=== PATIENT | female | born 1940 | race Caucasian/White ===

== ENCOUNTER → 2016-05-18 | Outpatient (CLI) | payer OTHER, BC | LOC: BHFA 14:00 | PROVIDERS: ATTEND Internal Medicine Cardiovascular Disease | DX: I34.9 Nonrheumatic mitral valve disorder, unspecified (principal) ==

== ENCOUNTER → 2016-06-08 | Outpatient (CLI) | payer OTHER, BC | LOC: BHFA 13:45 | PROVIDERS: ATTEND Internal Medicine Cardiovascular Disease | DX: I50.9 Heart failure, unspecified (principal); R00.2 Palpitations; R06.02 Shortness of breath; I48.91 Unspecified atrial fibrillation; I34.0 Nonrheumatic mitral (valve) insufficiency ==

== ENCOUNTER 2016-07-06 10:54 | Day surgery (SDC) | payer OTHER, BC ==
[2016-07-06] MEDS ORDERED: diphenhydrAMINE 25 MG CAP PO ONE (11:25)
[2016-07-06] MEDS ORDERED: BACITRACIN IRRIGATION/NS 50,000 UNITS/1,000 ML BTL IRR ONE (11:25)
[2016-07-06] MEDS ORDERED: DIAZEPAM 5 MG TAB PO ONE (11:25)
[2016-07-06] MEDS ORDERED: NS 1,000 ML IV ONE (11:25)
--- NOTE | 2016-07-06 11:38 | CPEKG ---
Heart Rate: 70 RR Interval: 857 QRSD Interval: 136 QT Interval: 428 QTC Interval: 462 QRS [place]: 156 T Wave [place]: -21 EKG Severity - ABNORMAL ECG - EKG Impression: AFIB/FLUT AND V-PACED COMPLEXES Electronically Signed By: Dre Valle 07-Jul-2016 06:48:32
[2016-07-06] MEDS ORDERED: VANCOMYCIN HCL/NORMAL SALINE 250 ML IV ONE (12:00)
[2016-07-06 12:04] LABS: % IMMATURE GRANULYOCYTES 0.4 % (0.0-1.1); ABSOLUTE IMMATURE GRANULOCYTES 0.02 10^3/uL (0.00-0.10); ADD DIFF? NO; ADD MORPH? NO; ADD SCAN? NO; ATYPICAL LYMPHOCYTE FLAG 0 (0-99); FRAGMENT RBC FLAG 0 (0-99); HEMATOCRIT 39.6 % (38.0-47.0); HEMOGLOBIN 12.4 g/dL (12.6-16.3); LEFT SHIFT FLG 0 (0-99); LIPEMIA HEMOLYSIS FLAG 80 (0-99); MEAN CELL HEMOGLOBIN 28.4 pg (27.9-34.1); MEAN CELL HEMOGLOBIN CONCENTR. 31.3 g/dL (32.4-36.7); MEAN CELL VOLUME 90.8 fL (81.5-99.8); MEAN PLATELET VOLUME 9.6 fL (8.7-11.7); PLATELET CLUMPS FLAG 10 (0-99); PLATELET COUNT 153 10^3/uL (150-400); RED BLOOD CELL COUNT 4.36 10^6/uL (4.18-5.33); RED CELL DISTRIBUTION WIDTH 13.9 % (11.5-15.2)
[2016-07-06 12:09] LABS: INR 2.15 (0.83-1.16); PROTIME(PATIENT) 24.2 SEC (12.0-15.0)
[2016-07-06 12:30] LABS: ANION GAP 9 mEq/L (8-16); CALCIUM 9.5 mg/dL (8.5-10.4); CARBON DIOXIDE 22 mEq/l (22-31); CHLORIDE 111 mEq/L (97-110); GLOMERULAR FILTRATION RATE 54; GLUCOSE 76 mg/dL (70-100); POTASSIUM 3.7 mEq/L (3.5-5.2); SODIUM 142 mEq/L (134-144)
[2016-07-06] MEDS ORDERED: BUPIVACAINE 0.5% 30 ML SDV ONE (13:17)
[2016-07-06] MEDS ORDERED: LIDOCAINE 1% 30 ML SDV ONE (13:17)
[2016-07-06] MEDS ORDERED: PROPOFOL 200 MG/20 ML VIAL ONE (13:28)
[2016-07-06] MEDS ORDERED: fentaNYL 100 MCG/2 ML INJ ONE ×2 (13:28→14:55)
[2016-07-06] MEDS ORDERED: ONDANSETRON 4 MG/2 ML VIAL ONE (13:28)
[2016-07-06] MEDS ORDERED: LIDOCAINE 2% JELLY 5 ML TUBE ONE (13:28)
[2016-07-06] MEDS ORDERED: DEXAMETHASONE 4 MG/ML VIAL ONE (13:28)
[2016-07-06] MEDS ORDERED: PHENYLEPHRINE HCL 100 MCG/ML SYR ONE (14:07)
[2016-07-06] MEDS ORDERED: HYDROCODONE/APAP 5/325 TAB PO PRN (14:53)
--- NOTE | 2016-07-06 15:03 | EPPROC ---
Electrophysiology Procedure Note: PROCEDURE PERFORMED: 1. AbiV ICD downgrade to AbiV pacemaker OPERATORS Dr. Pradeep Barclay, nurse's assistant Dr. Efe Ware INDICATION: Previously placed biventricular ICD Left ventricular ejection fraction has now normalized Conversation with the patient regarding pros and cons of biventricular pacemaker versus ICD, she understands risks of not having ICD and opts to have biventricular pacemaker. Device placed in retro muscular location because of thin body habitus he PROCEDURE NOTE: Patient presented to the cardiac catheterization laboratory in a fasting, postabsorptive state. Dr. Harshil Frost administered general anesthesia. The left infraclavicular area was prepped and draped in the usual sterile fashion. Lidocaine plus bupivacaine was used for local anesthesia. Dr. Pradeep Barclay performed the surgical aspects of the procedure and has dictated separately. The ICD portion of the right ventricular lead was capped, pocket was made in the retro muscular plane, pacemaker generator was attached to the leads. The pacemaker was inserted into the pocket and secured in place with a nonabsorbable suture. The pacemaker pocket was closed in 3 layers with absorbable monocryl sutures and álvaro. Appropriate dressing was applied. The patient left the cardiac catheterization laboratory in stable condition. Serial Numbers: 1. Device [employer] RF 3222 DIRECTOR ORANGE P, serial [id number] 2. Atrial Lead [employer] 4470, serial number [id number] 3. Ventricular Lead [employer] 0157, serial number [id number] 4. Coronary sinus Lead [employer] 4543, serial number [id number] Stimulation Thresholds & Impedance Measurements: 1. Atrial Lead atrial fibrillation, impedance 370 Ohms, sensing 0.8 mV 2. Ventricular Lead sensing 8.4 mV, threshold 1.5 volts at 0.5 milliseconds , 370 Ohms impedance 3. Coronary sinus Lead sensing 5.5 mV, threshold 1.2 volts at 0.5 milliseconds , impedance 820 Ohms. Tristan Pacing Parameters 1. Pacing mode DDDR with mode switch, patient has permanent atrial fibrillation 2. Lower rate 60 beats per minute 3. Upper tracking rate 120 beats per minute 4. Upper sensor rate 120 beats per minute Patient Problems: Problems Problem Status Onset Valvular cardiomyopathy Acute CAD (coronary artery disease), kake coronary artery Acute Immunosuppression Chronic Chronic atrial fibrillation Chronic Chronic anticoagulation Chronic CKD (chronic kidney disease) Chronic S/P mitral valve repair Acute S/P tricuspid valve repair Acute Acute blood loss anemia Acute Thrombocytopenia Acute
--- NOTE | 2016-07-06 15:16 | CPEKG ---
Heart Rate: 75 RR Interval: 800 QRSD Interval: 130 QT Interval: 464 QTC Interval: 519 QRS [place]: 0 T Wave [place]: 5 EKG Severity - ABNORMAL ECG - EKG Impression: AFIB/FLUTTER AND VENTRICULAR-PACED RHYTHM Electronically Signed By: Dre Valle 07-Jul-2016 06:48:26
--- NOTE | 2016-07-06 16:03 | GOP ---
[f rep st] OPERATIVE REPORT DATE OF OPERATION: 07/06/2016 SURGEON: Pradeep Barclay DO PREOPERATIVE DIAGNOSIS: Generator battery failure. POSTOPERATIVE DIAGNOSIS: PROCEDURE PERFORMED: 1. Revision of generator pocket with transfer of generator to sub pectoralis location. 2. Testing and implanting of pacemaker by Dr. Ware. FINDINGS: DESCRIPTION OF PROCEDURE: Under general anesthetic, the left chest was prepped and draped in steril e classical manner. This patient was extremely thin with no subcutaneous fat and rather cachectic. She had a BiV defibrillator, which had not eroded, but the generator was nearing the end of its lif e. Since she had never been defibrillated by the device, and her ejection fraction had markedly imp roved since cardiac surgery, the plan was to downgrade her to a biventricular pacer without defibril lator. She was prepped for the same. An incision was placed over the previous incision. Bovie was performed down to the capsule. The capsule was freed up and manually debrided. We then removed th e pacemaker from the pocket, and freed up the leads to its entry site in the subclavian vein. This was all done with cautery at a low level to protect the leads. We then excised the heavily calcifie d capsule on the anterior surface, leaving the posterior surface capsule mainly intact. We then dev eloped a pocket by going through the pectoralis muscle, staying along its fibers, entering the prepe ctoral fascia, along the chest wall and created a pocket of adequate size. This was packed with ant ibiotic-soaked solution while Dr. Ware then tested the current leads, capped the defibrillator leads, and connected a new pacemaker. I then it placed beneath the muscle, closed the muscle with interru pted 2-0 Vicryl. I closed the capsule with interrupted 3-0 Vicryl sutures in order to eliminate as much pocket as I could, and then used interrupted Vicryl sutures on the remainder of the closure. N o bleeding was encountered. Pamela were placed on the skin. Dressings were applied. The patient was returned to the recovery room in stable condition. /[id number]/MODL
== END 2016-07-06 18:28 | disposition home or self-care (01) ==
LOC: UNDOADMOB 10:54 → F3E 10:54 → FCATH 10:54 → EDSTATUS 13:00 → FCATH 18:28
PROVIDERS: ATTEND Internal Medicine Cardiovascular Disease
PROC: 0JWT3PZ Revision of Cardiac Rhythm Related Device in Trunk Subcutaneous Tissue and Fascia, Percutaneous Approach (ICD-10-PCS; principal; 2016-07-06)
PROC: 0JH636Z Insertion of Pacemaker, Dual Chamber into Chest Subcutaneous Tissue and Fascia, Percutaneous Approach (ICD-10-PCS; principal; 2016-07-06)
PROC: 0JPT3PZ Removal of Cardiac Rhythm Related Device from Trunk Subcutaneous Tissue and Fascia, Percutaneous Approach (ICD-10-PCS; principal; 2016-07-06)
DX: Z45.02 Encounter for adjustment and management of automatic implantable cardiac defibrillator (principal); I48.2 Chronic atrial fibrillation; N18.6 End stage renal disease; I42.9 Cardiomyopathy, unspecified; Z95.2 Presence of prosthetic heart valve; Z95.810 Presence of automatic (implantable) cardiac defibrillator
CPT/HCPCS: C2621; J1100; J2370; J2405; J2704; J3010; J3370

== ENCOUNTER 2017-05-31 15:30 | Emergency (ER) | payer OTHER, BC ==
--- NOTE | 2017-05-31 15:39 | EDPHY ---
H & P Time Seen by Provider: 05/31/17 15:37 HPI/ROS: CHIEF COMPLAINT: Cough shortness of breath and congestion HISTORY OF PRESENT ILLNESS: Patient developed symptoms 4 days ago with watery eyes and runny nose and feeling congested. She then developed a cough associated with phlegm production and feels very tired. She has not slept the last couple of days because she feels so short of breath at night. Symptoms moderate not associated with chest pain or fever. Not better worse with exertion or position. REVIEW OF SYSTEMS: Eye: no change in vision ENT: no sore throat Cardiac: no chest pain or syncope Pulmonary: HPI Abdomen: no vomiting, diarrhea, abdominal pain Musculoskeletal: no back pain Skin: Multiple areas of bruising from warfarin, right leg wound for the last 4 weeks which is stable Neuro: no headache Constitutional: no fever : no urinary symptoms A comprehensive 10 point review of systems is otherwise negative aside from elements mentioned in the history of present illness. PAST MEDICAL HISTORY: Discharge summary dated 04/28/2015 personally reviewed includes mitral and tricuspid valve repair, attempted single-vessel coronary artery bypass grafting but aborted, thrombocytopenia, renal insufficiency, history of kidney transplant in 2010. Pacemaker. Social history: Nonsmoker General Appearance: Alert and conversant, cooperative. Eyes: No scleral icterus. ENT, Mouth: Normal mucous membranes. Respiratory: Speaks in full sentences, bilateral faint end-expiratory wheezes. Cardiovascular: Regular rate and rhythm. 3/6 systolic murmur. Gastrointestinal: Abdomen is soft and non tender. Neurological: Alert, face symmetric, normal motor and sensory in extremities. Skin: Scattered bruising from her warfarin. There is a dressing over her right leg wound which was not removed. Musculoskeletal: No peripheral edema. No calf tenderness. Psychiatric: Not agitated. Emergency Department course/MDM: Most likely viral URI, however plan to evaluate for CHF or ACS or influenza or pneumonia. Given her past medical history all would be candidates for specific therapy. 1644: INR 2.47, pulmonary embolism would be unlikely. Chest x-ray does not show pneumonia. Normal white blood cell count and afebrile. 1702: Discussed with Shannan regarding elevated BNP; agrees with discharge if clinically does not appear like severe CHF, will arrange prompt followup with Dr. Moreno in office. Previous echo shows chronically dilated left atrium. 1717: Results discussed, likely viral URI, patient would like to go home which I think is reasonable. 1725: ambulatory, full sentences, looks well. Smoking Status: Never smoked Constitutional: Initial Vital Signs Temperature (C) 36.5 C 05/31/17 15:30 Heart Rate 73 05/31/17 15:30 Respiratory Rate 16 05/31/17 15:30 Blood Pressure 114/72 05/31/17 15:30 O2 Sat (%) 92 05/31/17 15:30 O2 Delivery Mode Room Air Allergies/Adverse Reactions: Tetanus Vaccines and Toxoid [Tetanus Vaccines & Toxoid] Allergy (Intermediate, Verified 10/31/13 13:10) bad localized reaction at injection site Cephalosporins Allergy (Verified 04/19/15 19:46) clindamycin Allergy (Verified 10/31/13 12:51) sevelamer HCl [From Renagel] Allergy (Verified 10/31/13 12:51) Home Medications: Medication Instructions Recorded Cinacalcet HCl [Sensipar (*)] 60 mg PO HS 04/23/12 Mycophenolate Mofetil [Cellcept 1,000 mg PO BID 04/23/12 500 mg] Warfarin Sodium [Coumadin 2.5MG 2.5 mg PO SUTUTHSA@1600 04/23/12 (*)] Warfarin Sodium [Coumadin 5MG (*)] 5 mg PO MOWEFR@1600 04/23/12 cycloSPORINE, MODIFIED [Gengraf] 25 mg PO DAILY 04/19/15 cycloSPORINE, MODIFIED [Gengraf] 25 mg PO HS 04/19/15 Pravastatin Sodium 20 mg PO HS #30 tablet 04/28/15 predniSONE 5 mg PO DAILY #30 tab 04/28/15 Calcium Carbonate [Oyster Shell 500 mg PO DAILY 07/06/16 Calcium 500 mg (*)] Carvedilol [Coreg (*)] 12.5 mg PO BIDMEAL 07/06/16 Medical Decision Making - Diagnostics EKG Interpretation: 12-lead EKG interpreted by me; official reading is in trace master. My interpretation is ventricular pacing rate 78. Imaging Results: Imaging Impressions Chest X-Ray 05/31/17 15:48 Impression: Underlying emphysema, without acute cardiopulmonary abnormality.. Differential Diagnosis: Differential diagnosis considered for shortness of breath including but not limited to URI, influenza, pulmonary infectious process, COPD, asthma, pulmonary embolus and congestive heart failure. - Data Points Laboratory Results: Laboratory Results 05/31/17 16:00 05/31/17 16:00 05/31/17 05/31/17 05/31/17 16:15 16:00 16:00 WBC RBC Hgb Hct MCV MCH MCHC RDW Plt Count MPV Neut % (Auto) Lymph % (Auto) [place] % (Auto) Eos % (Auto) Baso % (Auto) Nucleat RBC Rel Count Absolute Neuts (auto) Absolute Lymphs (auto) Absolute Monos (auto) Absolute Eos (auto) Absolute Basos (auto) Absolute Nucleated RBC Immature Gran % Immature Gran # PT 26.7 SEC H SEC (12.0-15.0) INR 2.47 H (0.83-1.16) Sodium 142 mEq/L mEq/L (135-145) Potassium 4.1 mEq/L mEq/L (3.5-5.2) Chloride 108 mEq/L mEq/L (97-110) Carbon Dioxide 24 mEq/l mEq/l (22-31) Anion Gap 10 mEq/L mEq/L (8-16) BUN 54 mg/dL H mg/dL (7-23) Creatinine 1.3 mg/dL H mg/dL (0.6-1.0) Estimated GFR 40 Glucose 112 mg/dL H mg/dL (70-100) Calcium 9.6 mg/dL mg/dL (8.5-10.4) Troponin I 0.034 ng/mL ng/mL (0.000-0.034) NT-Pro-B Natriuret Pep 38575 pg/mL H pg/mL (0-450) Nasal Influenza A PCR NEGATIVE FOR FLU A (NEGATIVE) Nasal Influenza B PCR NEGATIVE FOR FLU B (NEGATIVE) 05/31/17 16:00 WBC 5.53 10^3/uL 10^3/uL (3.80-9.50) RBC 4.51 10^6/uL 10^6/uL (4.18-5.33) Hgb 12.6 g/dL g/dL (12.6-16.3) Hct 41.2 % % (38.0-47.0) MCV 91.4 fL fL (81.5-99.8) MCH 27.9 pg pg (27.9-34.1) MCHC 30.6 g/dL L g/dL (32.4-36.7) RDW 13.5 % % (11.5-15.2) Plt Count 136 10^3/uL L 10^3/uL (150-400) MPV 9.7 fL fL (8.7-11.7) Neut % (Auto) 80.4 % H % (39.3-74.2) Lymph % (Auto) 8.0 % L % (15.0-45.0) [place] % (Auto) 10.3 % % (4.5-13.0) Eos % (Auto) 0.4 % L % (0.6-7.6) Baso % (Auto) 0.7 % % (0.3-1.7) Nucleat RBC Rel Count 0.0 % % (0.0-0.2) Absolute Neuts (auto) 4.45 10^3/uL 10^3/uL (1.70-6.50) Absolute Lymphs (auto) 0.44 10^3/uL L 10^3/uL (1.00-3.00) Absolute Monos (auto) 0.57 10^3/uL 10^3/uL (0.30-0.80) Absolute Eos (auto) 0.02 10^3/uL L 10^3/uL (0.03-0.40) Absolute Basos (auto) 0.04 10^3/uL 10^3/uL (0.02-0.10) Absolute Nucleated RBC 0.00 10^3/uL 10^3/uL (0-0.01) Immature Gran % 0.2 % % (0.0-1.1) Immature Gran # 0.01 10^3/uL 10^3/uL (0.00-0.10) PT INR Sodium Potassium Chloride Carbon Dioxide Anion Gap BUN Creatinine Estimated GFR Glucose Calcium Troponin I NT-Pro-B Natriuret Pep Nasal Influenza A PCR Nasal Influenza B PCR Medications Given: Discontinued Medications Albuterol (Proventil Neb) 3 ml IH EDNOW ONE Stop: 05/31/17 15:49 Last Admin: 05/31/17 16:15 Dose: 3 ml Departure - Departure Disposition: Home, Routine, Self-Care Clinical Impression: URI (upper respiratory infection) Qualifiers: URI type: unspecified URI Qualified Code(s): J06.9 - Acute upper respiratory infection, unspecified Condition: Good Instructions: Upper Respiratory Infection (ED) Referrals: Garcia Moreno MD [Medical Doctor] - 2-3 days, call for appt.
[2017-05-31] MEDS ORDERED: ALBUTEROL 3 ML DEYVIAL IH ONE (15:48)
--- NOTE | 2017-05-31 16:07 | CPEKG ---
Heart Rate: 78 RR Interval: 769 P-R Interval: 132 QRSD Interval: 126 QT Interval: 440 QTC Interval: 502 P [place]: 0 QRS [place]: 10 T Wave [place]: 174 EKG Severity - ABNORMAL ECG - EKG Impression: VENTRICULAR-PACED COMPLEXES EKG Impression: VENT PREEXCITATION, RIGHT ACCESSORY PATHWAY Electronically Signed By: Juan J Segovia 31-May-2017 16:07:59
[2017-05-31 16:13] LABS: PLATELET COUNT 136 10^3/uL (150-400)
[2017-05-31 16:30] LABS: INR 2.47 (0.83-1.16); PROTIME(PATIENT) 26.7 SEC (12.0-15.0)
[2017-05-31 16:37] VITALS: BP 154/99
== END 2017-05-31 17:25 | disposition home or self-care (01) ==
DX: J06.9 Acute upper respiratory infection, unspecified (principal); Z79.01 Long term (current) use of anticoagulants; Z95.0 Presence of cardiac pacemaker
CPT/HCPCS: 71046; 93005; 99285; J7613

== ENCOUNTER → 2017-06-07 | Outpatient (CLI) | payer OTHER, BC | LOC: BHFA 13:15 | PROVIDERS: ATTEND Internal Medicine Cardiovascular Disease | DX: I48.91 Unspecified atrial fibrillation (principal); I34.8 Other nonrheumatic mitral valve disorders; I35.8 Other nonrheumatic aortic valve disorders ==

== ENCOUNTER → 2017-06-09 | Outpatient (CLI) | payer OTHER, BC | LOC: FIMAGING 12:34 | PROVIDERS: ATTEND Internal Medicine Cardiovascular Disease | DX: J98.11 Atelectasis (principal); I34.0 Nonrheumatic mitral (valve) insufficiency; I48.2 Chronic atrial fibrillation ==

== ENCOUNTER 2017-07-03 14:39 | Inpatient (IN) | payer OTHER, BC ==
--- NOTE | 2017-07-03 15:22 | EDPHY ---
H & P Stated Complaint: Right hand pain, left leg pain. Fell hiking. Denies LOC Time Seen by Provider: 07/03/17 15:17 - Personal History Current Tetanus/Diphtheria Vaccine: No Current Tetanus Diphtheria and Acellular Pertussis (TDAP): No Tetanus Vaccine Date: HAS REACTION WITH TD - Medical/Surgical History Hx Asthma: No Hx Chronic Respiratory Disease: No Hx Diabetes: No Hx Cardiac Disease: Yes Hx Renal Disease: Yes Hx Cirrhosis: No Hx Alcoholism: No Hx HIV/AIDS: No Hx Splenectomy or Spleen Trauma: No Other PMH: kidney transplant, CHF, has defibrillator, SLE (lupus); arthritis; dry eye disease; - Social History Smoking Status: Never smoked Constitutional: Initial Vital Signs Temperature (C) 36.9 C 07/03/17 15:00 Heart Rate 70 07/03/17 15:00 Respiratory Rate 17 07/03/17 15:00 Blood Pressure 112/67 07/03/17 15:00 O2 Sat (%) 98 07/03/17 15:00 O2 Delivery Mode Room Air Allergies/Adverse Reactions: ertapenem Allergy (Severe, Verified 07/03/17 17:12) Other-Enter Comments Tetanus Vaccines and Toxoid [Tetanus Vaccines & Toxoid] Allergy (Intermediate, Verified 10/31/13 13:10) bad localized reaction at injection site sevelamer HCl [From Renagel] Allergy (Unknown, Verified 07/03/17 17:12) clindamycin Allergy (Verified 10/31/13 12:51) Home Medications: Medication Instructions Recorded Cinacalcet HCl [Sensipar (*)] 60 mg PO HS 04/23/12 Mycophenolate Mofetil [Cellcept 1,000 mg PO BID 04/23/12 500 mg] Warfarin Sodium [Coumadin 2.5MG 2.5 mg PO SUTUTHSA@1600 04/23/12 (*)] Warfarin Sodium [Coumadin 5MG (*)] 5 mg PO MOWEFR@1600 04/23/12 cycloSPORINE, MODIFIED [Gengraf] 25 mg PO DAILY 04/19/15 cycloSPORINE, MODIFIED [Gengraf] 25 mg PO HS 04/19/15 Pravastatin Sodium 20 mg PO HS #30 tablet 04/28/15 predniSONE 5 mg PO DAILY #30 tab 04/28/15 Calcium Carbonate [Oyster Shell 500 mg PO DAILY 07/06/16 Calcium 500 mg (*)] Carvedilol [Coreg (*)] 12.5 mg PO BIDMEAL 07/06/16 Albuterol Sulfate [Ventolin Hfa] 1 - 2 puffs IH Q6 PRN 07/03/17 Medical Decision Making ED Course/Re-evaluation: CHIEF COMPLAINT: Large leg hematoma, fall, on Coumadin HISTORY OF PRESENT ILLNESS: The patient is an anticoagulated 77 y/o female complaining of a very large left lower leg hematoma and wound secondary to a mechanical fall while hiking this afternoon. She has a complicated medical history including lupus, renal transplant, ICD, hypertension, atrial fibrillation, valve repairs, hypertension, and aborted single vessel bypass grafting due to heavy calcification. She has additional history of a chronic left lower leg wound following prior necessity for a compression bandage on that leg. Today she tripped while hiking landing on her left lower leg and right hand. She also complains of left groin pain. She is able to walk and has full movement of her lower extremity. She denies striking her head, loss of consciousness, weakness, paresthesias, midline spinal pain, or other injuries. No antiplatelets. agents. REVIEW OF SYSTEMS: A 10 point review of systems was performed and is negative with the exception of the elements mentioned in the history of present illness. PHYSICAL EXAM: HR, BP, O2 Sat, RR. Temp noted General Appearance: Alert, well hydrated, appropriate, and non-toxic appearing. Head: Atraumatic without scalp tenderness or obvious injury Eyes: Pupils equal, round, reactive to light and accommodation, EOMI, no trauma , no injection. Nose: Atraumatic, no rhinorrhea, clear. Throat: Mucus membranes moist. Neck: Supple Respiratory: No retractions, no distress, no wheezes, and no accessory muscle use. Lungs are clear to auscultation bilaterally. Cardiovascular: Regular rate and rhythm, no murmurs, rubs, or gallops. Left dorsalis pedis pulse intact. Good capillary refill all extremities. Gastrointestinal: Abdomen is soft, non-tender, non-distended, no masses, no rebound, no guarding, no peritoneal signs. Musculoskeletal: Very large medial compartment hematoma with pronounced ecchymosis of left lower leg, small laceration/skin tear over left tibial tuberosity, small abrasion at base of right thumb. Normal ROM. Neurological: Alert, appropriate, and interactive. The patient has normal DTRs and non-focal cranial nerves, motor, sensory, and cerebellar exam. Skin: No rashes, good turgor, no nodules on palpation. PAST MEDICAL HISTORY: Lupus, renal transplant on immunosuppression, renal insufficiency, hypertension, atrial fibrillation - Warfarin, valve repairs, hypertension, chronic left lower leg wound, thrombocytopenia PAST SURGICAL HISTORY: Renal transplant in 2010, ICD, mitral and tricuspid valve repairs, aborted single-vessel coronary artery bypass grafting due to heavy calcification SOCIAL HISTORY: Family member at bedside. Prior medical records reviewed including admission 2012, ED visit 05/31/17. DIAGNOSTICS/PROCEDURES/CRITICAL CARE TIME: Critical care time spent by me, Dr. Slater, exclusively with this patient was 35 minutes, exclusive of PA time and exclusive of procedures. The organ system at risk was musculoskeletal. Time spent in serial assessments of the patient, discussion with patient and her family, consideration of interventions including anticoagulant reversal, trauma surgery consultation. DIFFERENTIAL DIAGNOSIS: The differential diagnosis for the patient's trauma included but was not limited to intracranial injury, long bone and pelvic bone fractures, spinal injury, intra-abdominal injury, and intra-thoracic injury. MEDICAL DECISION MAKING: This is an anticoagulated 77 y/o female with a complicated medical history who presents with a very large left lower leg hematoma and ecchymosis secondary to a mechanical fall. She is neurovascularly intact with normal range of motion. Doubt acute compartment syndrome, but degree of swelling is concerning and will require surgical consult due to tissue-threatening injury. Plan for IV, TXA, labs, compression of the leg, and surgery consult. 1520: Consulted with Dr. Avila, trauma surgeon. He will assess patient in the ED. He recommends reversing Coumadin. Vitamin K and KCentra ordered. 1548: Reevaluated patient. She agrees with plan for Coumadin reversal. 1650: Consulted with Dr. Avila. He will admit patient. - Data Points Laboratory Results: Laboratory Results 07/03/17 15:36 07/03/17 16:48 07/03/17 07/03/17 07/03/17 16:48 15:36 15:36 WBC 7.75 10^3/uL 10^3/uL (3.80-9.50) RBC 4.15 10^6/uL L 10^6/uL (4.18-5.33) Hgb 11.8 g/dL L g/dL (12.6-16.3) Hct 37.9 % L % (38.0-47.0) MCV 91.3 fL fL (81.5-99.8) MCH 28.4 pg pg (27.9-34.1) MCHC 31.1 g/dL L g/dL (32.4-36.7) RDW 14.3 % % (11.5-15.2) Plt Count 135 10^3/uL L 10^3/uL (150-400) MPV 10.0 fL fL (8.7-11.7) Neut % (Auto) 86.7 % H % (39.3-74.2) Lymph % (Auto) 6.7 % L % (15.0-45.0) [place] % (Auto) 4.8 % % (4.5-13.0) Eos % (Auto) 0.8 % % (0.6-7.6) Baso % (Auto) 0.5 % % (0.3-1.7) Nucleat RBC Rel Count 0.0 % % (0.0-0.2) Absolute Neuts (auto) 6.72 10^3/uL H 10^3/uL (1.70-6.50) Absolute Lymphs (auto) 0.52 10^3/uL L 10^3/uL (1.00-3.00) Absolute Monos (auto) 0.37 10^3/uL 10^3/uL (0.30-0.80) Absolute Eos (auto) 0.06 10^3/uL 10^3/uL (0.03-0.40) Absolute Basos (auto) 0.04 10^3/uL 10^3/uL (0.02-0.10) Absolute Nucleated RBC 0.00 10^3/uL 10^3/uL (0-0.01) Immature Gran % 0.5 % % (0.0-1.1) Immature Gran # 0.04 10^3/uL 10^3/uL (0.00-0.10) PT Cancelled INR Cancelled APTT Cancelled Sodium 140 mEq/L mEq/L (135-145) Potassium 4.9 mEq/L mEq/L (3.5-5.2) Chloride 105 mEq/L mEq/L (97-110) Carbon Dioxide 30 mEq/l mEq/l (22-31) Anion Gap 5 mEq/L L mEq/L (8-16) BUN 51 mg/dL H mg/dL (7-23) Creatinine 1.2 mg/dL H mg/dL (0.6-1.0) Estimated GFR 44 Glucose 98 mg/dL mg/dL (70-100) Calcium 10.2 mg/dL mg/dL (8.5-10.4) Patient ABO/Rh Platelet Orders Status 07/03/17 15:36 WBC RBC Hgb Hct MCV MCH MCHC RDW Plt Count MPV Neut % (Auto) Lymph % (Auto) [place] % (Auto) Eos % (Auto) Baso % (Auto) Nucleat RBC Rel Count Absolute Neuts (auto) Absolute Lymphs (auto) Absolute Monos (auto) Absolute Eos (auto) Absolute Basos (auto) Absolute Nucleated RBC Immature Gran % Immature Gran # PT INR APTT Sodium Potassium Chloride Carbon Dioxide Anion Gap BUN Creatinine Estimated GFR Glucose Calcium Patient ABO/Rh A NEGATIVE Platelet Orders Status READY Medications Given: Tranexamic Acid 1,000 mg/ (Sodium Chloride) 510 mls @ 63.75 mls/hr IV ONCE ONE Stop: 07/03/17 23:22 Last Admin: 07/03/17 16:29 Dose: 510 mls Discontinued Medications Tranexamic Acid 1,000 mg/ (Sodium Chloride) 110 mls @ 660 mls/hr IV ONCE ONE Stop: 07/03/17 15:32 Last Admin: 07/03/17 15:45 Dose: 110 mls Desmopressin Acetate 20 mcg/ (Sodium Chloride) 55 mls @ 100 mls/hr IV ONCE ONE Stop: 07/03/17 15:58 Last Admin: 07/03/17 16:40 Dose: Not Given Prothrombin Complex Concent (Human) (Kcentra) 1,500 unit in 60 mls @ 0 mls/hr IV ONCE ONE; Per Protocol PRN Reason: Protocol Stop: 07/03/17 15:27 Last Admin: 07/03/17 16:41 Dose: Not Given Phytonadione 10 mg/ Sodium (Chloride) 51 mls @ 102 mls/hr IV ONCE ONE Stop: 07/03/17 15:55 Last Admin: 07/03/17 16:16 Dose: 51 mls Departure - Departure Referrals: NONE *PRIMARY CARE P,. [Primary Care Provider] - As per Instructions Report Scribed for: Harsha Slater Report Scribed by: Eva Chiu Date of Report: 07/03/17 Time of Report: 16:27
[2017-07-03] MEDS ORDERED: TRANEXAMIC ACID 1,000 MG in NS 500 ML IV ONE ×2 (15:23→16:45)
[2017-07-03] MEDS ORDERED: TRANEXAMIC ACID 1,000 MG in NS 100 ML IV ONE ×2 (15:23→16:45)
[2017-07-03] MEDS ORDERED: HUMAN PROTHROMBIN COMPLX(PCC) 1,500 UNIT/60 ML VIAL IV ONE ×2 (15:26→16:45)
[2017-07-03] MEDS ORDERED: PHYTONADIONE 10 MG in NS 50 ML IV ONE (15:26)
[2017-07-03] MEDS ORDERED: DESMOPRESSIN ACETATE 20 MCG in NS 50 ML IV ONE (15:26)
[2017-07-03 16:50] LABS: PLATELET COUNT 135 10^3/uL (150-400)
--- NOTE | 2017-07-03 18:09 | GHP ---
[f rep st] HISTORY AND PHYSICAL DATE OF ADMISSION: 07/03/2017 CHIEF COMPLAINT: Left calf hematoma. PRESENT ILLNESS: A 77-year-old female, hiking, fell, unclear how she injured the left calf, but ther e is a prominent hematoma medially, consistent with a Basurto-Lavall?e lesion, less likely to be intram uscular by physical exam. She also complains of left groin pain. ALLERGIES: Ertapenem, clindamycin. CURRENT MEDICATIONS: Coumadin for atrial fib, and she has several valve repairs, prednisone, CellCep t, Gengraf, carvedilol, . PREVIOUS SURGERY: Kidney transplant, pacemaker, defibrillator placement and removal and, apparently, mitral and tricuspid valve replacements. REVIEW OF SYSTEMS: Valve replacements, renal failure, possibly from lupus, although unclear. She cu rrently has lupus and arthritis. She states an echo showed ejection fraction of roughly 50% recently . 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 She had a fall a year ago with soft tissue injuries to the left calf and was seen in [facility] for nathan epperson a year because of slow healing secondary to her rejection medications, etc. PHYSICAL EXAM: GENERAL: Pleasant slender female, minimal distress. HEENT: PERRL, EOMI, sclerae no nicteric. Pharynx clear. NECK: Supple. Nontender. No adenopathy. No supraclavicular or axillary crepitus. CHEST: Sternum stable. Ribs stable. Posterior back and neck nontender. LUNGS: Clear. HEART: No apparent murmur. Regular rate and rhythm. ABDOMEN: Soft, benign. Pelvis stable to co mpression. EXTREMITIES: Right lower extremity has some bruising, but no issues. The left has a med ial calf hematoma, approximately 7 cm wide and 14 cm long, and a 1.5 cm superficial cut over the left knee. Patient has full sensation and movement in her toes. Denies any pain with either active or p assive movement of her toes, and I do not believe there is any compartment syndrome. ASSESSMENT: Assess anticoagulated female. INR is pending, but she has been given [place] by [facility]. She is on no anti-platelet drugs and no platelets have been ordered. I belie ve she also received tranexamic acid in the ER. PLAN: We will admit her overnight for observation in regard to the potential for compartment syndrom e development, although I think it is unlikely. She well might need eventual drainage of this calf h ematoma but not tonight. We will restart all of her usual medicines, with the exception of Coumadin. /[id number]/MODL
[2017-07-03] MEDS ORDERED: ONDANSETRON DISINTEGRATING 4 MG TAB PO PRN (18:51)
[2017-07-03] MEDS: HYDROCODONE/APAP 5/325 TAB PO PRN ×2 (20:52→23:19)
[2017-07-03] MEDS: CINACALCET HCL 30 MG TAB PO SCH (20:53)
[2017-07-03] MEDS: PRAVASTATIN SODIUM 20 MG TAB PO SCH (20:53)
[2017-07-03] MEDS: BACITRACIN ZINC 14.2 GM OINTTUBE TP SCH (20:55)
[2017-07-03] MEDS ORDERED: MYCOPHENOLATE MOFETIL 1000 MG PO SCH (21:00)
[2017-07-03] MEDS: MYCOPHENOLATE MOFETIL 250 MG CAP PO SCH (21:17)
[2017-07-04 05:22] LABS: INR 1.26 (0.83-1.16)
[2017-07-04] MEDS: HYDROCODONE/APAP 5/325 TAB PO PRN (06:38)
[2017-07-04] MEDS: CARVEDILOL 6.25 MG TAB PO SCH ×2 (07:51→18:43)
[2017-07-04] MEDS: predniSONE 5 MG TAB PO SCH (07:51)
[2017-07-04] MEDS: MYCOPHENOLATE MOFETIL 250 MG CAP PO SCH ×2 (07:52→20:05)
[2017-07-04] MEDS: BACITRACIN ZINC 14.2 GM OINTTUBE TP SCH ×2 (07:57→20:07)
[2017-07-04] MEDS ORDERED: CARVEDILOL 6.25 MG TAB PO ONE (10:37)
[2017-07-04] MEDS ORDERED: PROTOCOL MAGNESIUM 1 DOSE IV PRN (10:38)
[2017-07-04] MEDS ORDERED: MAGNESIUM SULF 1 GM/DEXTROSE 100 ML IV ONE (11:18)
--- NOTE | 2017-07-04 11:32 | GCON ---
[f rep st] CONSULTATION CARDIOLOGY CONSULTATION DATE OF CONSULTATION: 07/04/2017 PRIMARY FEEDER/FOLDER: Minnie Moreno MD. PRIMARY CARE: [place] MD CHIEF COMPLAINT: Ventricular tachycardia. HISTORY OF PRESENT ILLNESS: We were asked by Dr. Per Avila to visit with this patient. The patient is a pleasant 77-year-old female with a history of nonischemic cardiomyopathy, valvular heart disease, status post mitral valve repair and tricuspid valve ring in 2015. At that time, she also had left atrial appendage ligation and attempt at single-vessel CABG to the right coronary artery. The CABG was aborted due to heavily calcified vessel. She does have a biventricular pacemaker. Her ejection fraction has become near normal at 50% based on echocardiogram last month. Other history includes permanent atrial fibrillation, lupus, status post renal transplant and hypertension. The patient was out doing 1 of her usual hikes yesterday when she sustained a mechanical fall. This was complicated by significant left calf hematoma for which she has required trauma admission for observation for the calf hematoma and admission. In the ER, she did have reversal of her Coumadin. She reports that she did not feel lightheaded or have palpitations prior to the fall. Overnight last night, she did have a 12-beat run of ventricular tachycardia and therefore we were asked to consult. Upon my evaluation, she reports feeling a little bit out of it, as she just received some narcotics. She was awake at 3:45 this morning when the ventricular tachycardia happened and did not notice any palpitations or lightheadedness. She has not had syncope. She has not had angina or dyspnea. Lower extremities have not been swollen. ALLERGIES: Ertapenem, tetanus vaccine, sevelamer, and clindamycin. PAST MEDICAL HISTORY: 1. Nonischemic cardiomyopathy related to valvular heart disease. Most recent ejection fraction 50% in June of this year. 2. Permanent atrial fibrillation. 3. Biventricular pacemaker. She did have a generator change in 2016 at which time, her ICD lead was capped and she remains with a biventricular pacemaker without ICD function. 4. Valvular heart disease status post mitral valve repair and tricuspid valve ring, along with left atrial appendage [place] [address] Barclay. 5. Coronary disease with failed CABG to the RCA at the time of her valvular surgery. 6. Lupus. 7. Renal insufficiency status post renal transplant in 2010 on chronic immunosuppression. 8. Hypertension. 9. History of chronic left lower extremity wound that required greater than 1 year of treatment in the [facility]ound Clinic. OUTPATIENT MEDICATIONS: Albuterol, calcium, Coreg 12.5 mg twice daily, Sensipar , cyclosporine, CellCept, pravastatin, prednisone, and warfarin. 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 She is and her is at the bedside. FAMILY HISTORY: Not applicable to the current case. PHYSICAL EXAM: VITAL SIGNS: Blood pressure is 98/55, heart rate is 70. Oxygen saturation 92% on room air. She is afebrile. GENERAL: Somewhat frail, thin, older female in no acute distress. HEENT: Sclerae are clear and free of jaundice. Mucous membranes are moist. Normocephalic, atraumatic. CARDIOVASCULAR: JVP is less than 10. Irregular irregular rhythm with a 1/6 holosystolic murmur at the base. No S3. LUNGS: Clear to auscultation without wheeze, rhonchi, or rales. ABDOMEN: Soft, nontender, nondistended, without bruits, masses, or hepatosplenomegaly. EXTREMITIES: Warm, well perfused. She does have 1+ pedal edema on the left, which is the side of her hematoma. Her left lower extremity is wrapped. No edema on the right leg. SKIN: Diffuse ecchymoses and minor skin tears over both of her arms. NEURO: Alert and oriented x3 without gross focal neurologic deficits. Appropriate mood and affect. LABORATORY DATA: White count 7.7, hematocrit 37.9, and platelets are 135. INR 1.26. Sodium 140, potassium 4.9, chloride 105, bicarb 30, BUN 51, creatinine 1.2, glucose is 98. Echocardiogram in our office May 2017 shows ventricular systolic function of 50%. Mitral valve repair with mild mitral regurgitation. Tricuspid valve repair with trivial tricuspid regurgitation. Estimated PA pressure 42 mmHg. ASSESSMENT AND PLAN: A 77-year-old female with extensive medical history as detailed above. Admitted status post mechanical fall complicated by large left calf hematoma in the setting of chronic anticoagulation therapy with warfarin. Her warfarin has appropriately been reversed and held. She did have 112-beat episode of ventricular tachycardia overnight that was asymptomatic. 1. Ventricular tachycardia: Her ejection fraction is low normal. She currently does not have an ICD. She is on beta blockers. We will give her a slightly lower dose this morning as she is mildly hypotensive. Check a magnesium and replete as necessary. We will get her pacemaker interrogated to ensure that her detection algorithms are set appropriately to detect any future ventricular tachycardia. Follow on telemetry. She is not having chest pain, so I do not think this is an ischemically mediated rhythm but may be related to stress from her trauma. Continue beta-blockers as blood pressure tolerates. If she has more ventricular tachycardia, may need to consider an antiarrhythmic drug as well as reconsideration for ICD therapy. As mentioned previously, she did have a failed bypass to the right coronary artery. Could consider further ischemic evaluation if she continues to have ventricular tachycardia with possibility of percutaneous coronary intervention. This would be later once her bleeding issues from her leg are stabilized. 2. Left calf hematoma: Per Surgery. Warfarin is on hold. Fortunately, she did have her left atrial appendage ligated at the time of her valve surgery, which therefore decreases her thromboembolic risk in the setting of atrial fibrillation. Restart anticoagulation when deemed safe by Surgery. Decision about surgical drainage versus conservative management is ongoing. 3. Atrial fibrillation: As above, warfarin is on hold. She is well rate controlled on carvedilol. 4. Valvular heart disease, status post mitral and tricuspid repair: Recent echocardiogram shows robustness of this repair. No need to repeat echocardiogram now. Ejection fraction 50%. 5. Biventricular pacemaker: This is not an ICD. Interrogation today demonstrates that VT detection was set to 20 beats; we lowered this to 10 beat 6. Status post renal transplant: Renal function is about baseline. She is on chronic immunosuppression. 7. Hypertension: Right now, she is slightly hypotensive. This may be related to some blood loss into her leg. Follow. Thank you for allowing us to participate in the patient's care. We will follow with you /[id number]/MODL and [id number]/MODL [facility]
[2017-07-04] MEDS: CYCLOSPORINE MODIFIED 25 MG PO SCH ×3 (11:43→20:13)
--- NOTE | 2017-07-04 15:36 | ASMTCMCOM ---
CM Note CM Note Notes: Patient admitted with a hematoma on her left leg sustained after she fell hiking. She is anticoagulated with Coumadin. Surgery has been consulted to determine if she needs drainage. Patient lives with her husbad, department store salesperson in [place] and department store salesperson here. She is able to weight bear as tolerated, and PT gave her loan closet information. She should not have any discharge needs, but Case Management available if any arise. Date Signed: 07/04/2017 03:36 PM Electronically Signed By:Gala Mendieta RN
--- NOTE | 2017-07-04 17:01 | PDMN ---
Medical Necessity Medical necessity: C/M review: est. > 2 MN LOS for eval and TX of acute significant left calf hematoma, ventricular tachycardia, requiring reversal of anticoagulation 07/03/2017, Decision about surgical drainage versus conservative management and restart anticoagulation when deemed safe by Trauma Surgery, planned Rebab eval consult, pacemaker interrogation, ongoing cardiac monitoring , neuro checks, acute inpt PT/OT/ST, comorbid mechanical fall just prior to this admission, nonischemic cardiomyopathy, permanent atrial fibrillation, biventricular pacemaker, patient does not have ICD, valvular heart disease S/P mitral valve repair and triscupid valve ring along with left atrial appendage ligation in 2015, CAD with failed CABG to the RCA at the time or patient's valvular surgery, lupus, renal insufficiency S/P renal transplant in 2010 on chronic immunosuppression, hypertension, history of chronic left lower extremity wound that required > one year of treatment in Wound clinic per discussion with Dr. Joel Puente and Cardiology consult note.
--- NOTE | 2017-07-04 18:43 | SOAPPROG ---
SANDRA Progress Note Assessment/Plan: Assessment: 77-YEAR-OLD FEMALE ON COUMADIN FOR MULTIPLE VALVE REPAIR/STATUS POST FALL WITH INJURY TO THE LEFT LEG SHE HAS A 30 CM X 15 CM HEMATOMA IN THE MEDIAL ASPECT OF THE LEFT LEG WITH NECROTIC SKIN FULL DISTAL PULSES SITUATION COMPLICATED BY HER ANTICOAGULATION, HER PREDNISONE MEDICATIONS, AND HER ANTI-REJECTION MEDICINES IMPRESSION GIANT SUBCUTANEOUS HEMATOMA/RISKS AND OPTIONS FULLY DISCUSSED WITH THE PATIENT AND HER WHO WISHED TO PROCEED WITH SURGERY Plan: I AND D IN THE MORNING 07/04/17 18:40 Objective: Vital Signs Temp Pulse Resp BP Pulse Ox 36.9 C 73 18 91/64 L 94 07/04/17 15:50 07/04/17 15:50 07/04/17 15:50 07/04/17 15:50 07/04/17 15:50 Laboratory Results 07/03/17 16:48 07/03/17 07/04/17 07/05/17 05:59 05:59 05:59 Intake Total 500 950 Output Total 300 Balance 200 950 PT 16.0 SEC (12.0-15.0) H 07/04/17 04:35 INR 1.26 (0.83-1.16) H 07/04/17 04:35 ICD10 Worksheet Patient Problems: Problems Problem Status Onset Acute blood loss anemia Acute CAD (coronary artery disease), [place] coronary artery Acute S/P mitral valve repair Acute S/P tricuspid valve repair Acute Thrombocytopenia Acute Valvular cardiomyopathy Acute CKD (chronic kidney disease) Chronic Chronic anticoagulation Chronic Chronic atrial fibrillation Chronic Immunosuppression Chronic
[2017-07-04] MEDS: PRAVASTATIN SODIUM 20 MG TAB PO SCH (20:05)
[2017-07-04] MEDS: CINACALCET HCL 30 MG TAB PO SCH (20:05)
[2017-07-04] MEDS ORDERED: ceFAZolin 2 GM/SWFI 2 GM/20 ML SYR IVP ONE (23:47)
[2017-07-05] MEDS: HYDROCODONE/APAP 5/325 TAB PO PRN (06:29)
[2017-07-05] MEDS ORDERED: BUPIVACAINE 0.5% 30 ML SDV ONE (07:11)
[2017-07-05] MEDS ORDERED: BACITRACIN 50,000 UNITS/10 ML SYR IRR ONE ×2 (07:12→09:33)
[2017-07-05] MEDS ORDERED: POLYMYXIN B SULFATE 500,000 UNIT/10 ML SYR IRR ONE ×2 (07:12→09:33)
[2017-07-05] MEDS ORDERED: NS 1,000 ML IV ONE (07:46)
[2017-07-05] MEDS ORDERED: MIDAZOLAM 2 MG/2 ML VIAL ONE (08:51)
[2017-07-05] MEDS ORDERED: ceFAZolin 2 GM/SWFI 20 ML SYR IVP ONE (08:51)
[2017-07-05] MEDS ORDERED: MIDAZOLAM 2 MG/2 ML VIAL IVP ONE (08:58)
--- NOTE | 2017-07-05 08:58 | PDANEPAE ---
ANE History of Present Illness i&d leg ANE Past Medical History - Cardiovascular History Hx Hypertension: Yes Hx Arrhythmias: Yes Hx Chest Pain: No Hx Coronary Artery / Peripheral Vascular Disease: Yes Hx CHF / Valvular Disease: Yes Hx Palpitations: No Cardiovascular History Comment: afib. chf. pvd. aicd. mitral and tricupsid valve disorder. edema - Pulmonary History Hx COPD: No Hx Asthma/Reactive Airway Disease: No Hx Recent Upper Respiratory Infection: No Hx Oxygen in Use at Home: No Hx Sleep Apnea: No Sleep Apnea Screening Result - Last Documented: Positive - Neurologic History Hx Cerebrovascular Accident: No Hx Seizures: No Hx Dementia: No - Endocrine History Hx Diabetes: No - Renal History Hx Renal Disorders: Yes Renal History Comment: hx of kidney transplant in 2009 no problems currently - Liver History Hx Hepatic Disorders: No - Neurological & Psychiatric Hx Hx Neurological and Psychiatric Disorders: No - Cancer History Hx Cancer: Yes Cancer History Comment: skin ca - Congenital Disorder History Hx Congenital Disorders: No - GI History Hx Gastrointestinal Disorders: No - Other Health History Other Health History: very fragile skin- lots of bruising - Chronic Pain History Chronic Pain: Yes (arthritic pain) - Surgical History Prior Surgeries: pacemaker placed. left kidney transplant 2009. 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 Pacemaker Last Checked: 04/23/2015 ANE Patient History - Allergies Allergies/Adverse Reactions: ertapenem Allergy (Severe, Verified 07/03/17 17:12) Other-Enter Comments Tetanus Vaccines and Toxoid [Tetanus Vaccines & Toxoid] Allergy (Intermediate, Verified 10/31/13 13:10) bad localized reaction at injection site sevelamer HCl [From Renagel] Allergy (Unknown, Verified 07/03/17 17:12) clindamycin Allergy (Verified 10/31/13 12:51) - Home Medications Home Medications: Cinacalcet HCl [Sensipar (*)] 60 mg PO HS 04/23/12 [Last Taken 07/02/17] Warfarin Sodium [Coumadin 2.5MG (*)] 2.5 mg PO SUTUTHSA@1600 04/23/12 [Last Taken 07/01/17] Warfarin Sodium [Coumadin 5MG (*)] 5 mg PO MOWEFR@1600 04/23/12 [Last Taken ] cycloSPORINE, MODIFIED [Gengraf] 25 mg PO DAILY 04/19/15 [Last Taken 07/03/17] cycloSPORINE, MODIFIED [Gengraf] 25 mg PO HS 04/19/15 [Last Taken 07/02/17] Calcium Carbonate [Oyster Shell Calcium 500 mg (*)] 500 mg PO BID 07/06/16 [ Last Taken 07/03/17 09:00] Carvedilol [Coreg (*)] 12.5 mg PO BIDMEAL 07/06/16 [Last Taken 07/03/17 09:00] Albuterol Sulfate [Ventolin Hfa] 1 - 2 puffs IH Q6 PRN 07/03/17 [Last Taken Unknown] Mycophenolate Mofetil [Cellcept 250 mg (RX)] 750 mg PO BID 07/04/17 [Last Taken Unknown] - NPO status NPO Since - Liquids (Date): 07/05/17 NPO Since - Liquids (Time): 00:01 NPO Since - Solids (Date): 07/05/17 NPO Since - Solids (Time): 00:01 - Anes Hx Anes Hx: no prior problems - Smoking Hx Smoking Status: Never smoked - Family Anes Hx Family Hx Anesthesia Complications: mother- n/v ANE Labs/Vital Signs - Labs Result Diagrams: 07/03/17 15:36 07/03/17 16:48 - Vital Signs Blood Pressure: 112/53 Heart Rate: 76 Respiratory Rate: 19 O2 Sat (%): 92 Height: 162.56 cm Weight: 70.76 kg ANE Physical Exam - Airway Mallampati Score: Class 2 - Pulmonary Pulmonary: no respiratory distress - Cardiovascular Cardiovascular: irregularly irregular - ASA Status ASA Status: III ANE Anesthesia Plan Anesthesia Plan: GA w LMA
[2017-07-05] MEDS ORDERED: fentaNYL 100 MCG/2 ML INJ ONE (09:02)
[2017-07-05] MEDS ORDERED: PROPOFOL 200 MG/20 ML VIAL ONE (09:02)
[2017-07-05] MEDS ORDERED: ONDANSETRON 4 MG/2 ML VIAL ONE (09:02)
[2017-07-05] MEDS ORDERED: DEXAMETHASONE 4 MG/ML VIAL ONE (09:02)
[2017-07-05] MEDS ORDERED: LIDOCAINE 2% 5 ML SDV ONE (09:02)
[2017-07-05] MEDS ORDERED: PHENYLEPHRINE HCL 100 MCG/ML SYR ONE (09:10)
--- NOTE | 2017-07-05 09:21 | PDCARPN ---
Cardiology Progress Note Chief Complaint: leg hematoma/AF Assessment/Plan: Assessment: AF s/p MV repair/YOKASTA ligation hematoma Plan: 07/05/17 09:18 Surgery today for hematoma Given prior YOKASTA ligation and current hematoma, would suggest holding coumadin Continue other medications Subjective: stable Reviewed/Discussed With: multidisciplinary team Time Spent With Patient: 25 min Objective: Vital Signs (8 Hrs) Temp Pulse Resp BP Pulse Ox 07/05/17 08:57 76 19 112/53 L 92 07/05/17 08:48 36.7 C 76 19 112/53 L 97 07/05/17 03:45 36.7 C 76 19 112/53 L 92 07/05/17 03:14 36.7 C 76 19 112/53 L 92 Intake/Output (24 Hrs) 07/04/17 07/05/17 07/06/17 05:59 05:59 05:59 Intake Total 500 950 Output Total 300 500 175 Balance 200 450 -175 Intake: Oral (ml) 950 IV Infused (ml) 500 Output: Urine (ml) 300 500 175 Bedside Commode 300 Toilet 500 175 Other: Weight 70.76 kg 70.76 kg Intake Quantity Yes Yes Sufficient Number of Voids Toilet 1 Result Diagrams: 07/03/17 15:36 07/03/17 16:48 - Physical Exam Constitutional: healthy appearing Ears, Nose, Mouth, Throat: moist mucous membranes Cardiovascular: irregularly irregular Peripheral Pulses: 1+: femoral (R), femoral (L) Respiratory: clear to auscultate bilat Gastrointestinal: no tenderness Genitourinary: no suprapubic tenderness Skin: no rashes Musculoskeletal: other (left calf pain) Neurologic: AAOx3 Psychiatric: cooperative Lymph, Heme, Immunologic: no lymphadenopathy ICD10 Worksheet Patient Problems: Problems Problem Status Onset Acute blood loss anemia Acute CAD (coronary artery disease), [place] coronary artery Acute S/P mitral valve repair Acute S/P tricuspid valve repair Acute Thrombocytopenia Acute Valvular cardiomyopathy Acute CKD (chronic kidney disease) Chronic Chronic anticoagulation Chronic Chronic atrial fibrillation Chronic Immunosuppression Chronic
[2017-07-05] MEDS ORDERED: PHENYLEPHRINE 10 MG/ML SDV ONE (09:24)
[2017-07-05] MEDS ORDERED: THROMBIN (BOVINE) 20,000 UNIT SPRAY TP ONE (09:35)
[2017-07-05] MEDS ORDERED: NALOXONE HCL 0.4 MG/ML INJ IVP PRN (09:48)
[2017-07-05] MEDS ORDERED: fentaNYL 100 MCG/2 ML INJ IVP PRN (09:48)
[2017-07-05] MEDS ORDERED: ONDANSETRON 4 MG/2 ML VIAL IVP PRN (09:48)
[2017-07-05] MEDS ORDERED: ALBUTEROL 3 ML DEYVIAL IH PRN (09:48)
[2017-07-05] MEDS ORDERED: LR 500 ML IV PRN (09:48)
--- NOTE | 2017-07-05 10:12 | POSTOPPROG ---
Post Op Note Date of Operation: 07/05/17 Surgeon: Joel Puente Rock Duster: Kimberly Griggs Anesthesiologist: Bob Kumar Anesthesia: GET(General Endotracheal) Pre-op Diagnosis: large traumatic calf hematoma while anticoagulated. Post-op Diagnosis: same. Procedure: I&D, evacuation of hematoma, washout, skin graft with vac placement Findings: see below Inf/Abcess present in the surg proc area at time of surgery?: No EBL: 50-100 Complications: none Drains: Wound Vac Specimen(s): Findings: Large amount of clot evacuated. Wound pulse irrigated with sharply debrided. Skin flaps friable, thin, but questionably viable. One flap meshed and grafted to wound bed. Vac applied.
--- NOTE | 2017-07-05 10:14 | POSTANESTH ---
Post Anesthetic Evaluation Cardiovascular Status: Normal, Stable Respiratory Status: Normal, Stable Level of Consciousness/Mental Status: Can Participate in Eval Pain Control: Adequate, Prn Tx Ordered Nausea/Vomiting Control: Adequate, Prn Tx Ordered Complications Possibly Related to Anesthesia: None Noted
[2017-07-05] MEDS: BACITRACIN ZINC 14.2 GM OINTTUBE TP SCH ×3 (12:15→21:23)
[2017-07-05] MEDS: CARVEDILOL 6.25 MG TAB PO SCH ×2 (12:15→21:07)
[2017-07-05] MEDS: predniSONE 5 MG TAB PO SCH (12:16)
[2017-07-05] MEDS: MYCOPHENOLATE MOFETIL 250 MG CAP PO SCH ×2 (12:16→21:12)
[2017-07-05] MEDS ORDERED: MAGNESIUM SULF 1 GM/DEXTROSE 100 ML IV ONE (12:47)
[2017-07-05] MEDS: CYCLOSPORINE MODIFIED 25 MG PO SCH (21:11)
[2017-07-05] MEDS: CINACALCET HCL 30 MG TAB PO SCH (21:11)
[2017-07-05] MEDS: DOCUSATE SODIUM 100 MG CAP PO SCH (21:12)
[2017-07-05] MEDS: PRAVASTATIN SODIUM 20 MG TAB PO SCH (21:13)
[2017-07-05] MEDS: ACETAMINOPHEN 325 MG TAB PO PRN (21:13)
--- NOTE | 2017-07-06 06:50 | PDCARPN ---
Cardiology Progress Note Chief Complaint: leg pain Assessment/Plan: Assessment: AF s/p MV repair/YOKASTA ligation hematoma Plan: 07/05/17 09:18 Surgery today for hematoma Given prior YOKASTA ligation and current hematoma, would suggest holding coumadin Continue other medications 07/06/17 06:43 stable post surgery Wound still actively draining Would hold coumadin currently, re-start when deemed suitable by surgery Patient has YOKASTA ligation which reduces but does not eliminate stroke risk in AF Patient does have elevated CHADS-VASc score However, patient is determined to continue to live active lifestyle (i.e. hiking trails which led to her fall) Not a watchman candidate as YOKASTA is already ligated After discussion with patient about options, best to hold AC tx until wound completely stops draining Patient is willing to discuss with Dr. Moreno as an outpatient about continuing vs eliminating this therapy Will follow as needed, please call with any questions Subjective: stable Reviewed/Discussed With: multidisciplinary team Time Spent With Patient: 25 min Objective: Vital Signs (8 Hrs) Temp Pulse Resp BP Pulse Ox 07/06/17 03:58 36.6 C 86 21 H 102/63 97 07/05/17 23:52 36.8 C 72 21 H 119/65 97 Intake/Output (24 Hrs) 07/05/17 07/06/17 07/07/17 05:59 05:59 05:59 Intake Total 950 1100 Output Total 500 1125 175 Balance 450 -25 -175 Intake: Oral (ml) 950 500 IV Intake (ml) 600 Output: Urine (ml) 500 975 Toilet 500 975 Estimated Blood Loss (ml) 50 Wound Vac Output (ml) 100 175 Left Anterior Leg 100 175 Other: Weight 70.76 kg Intake Quantity Yes Yes Sufficient Output Comment Bedside Commode Large void. Mixed with paper unable to measure Number of Voids Bedside Commode 1 Toilet 1 1 Result Diagrams: 07/03/17 15:36 07/03/17 16:48 - Physical Exam Constitutional: healthy appearing Eyes: PERRL Ears, Nose, Mouth, Throat: moist mucous membranes Cardiovascular: irregularly irregular Peripheral Pulses: 1+: femoral (R), femoral (L) Respiratory: clear to auscultate bilat Gastrointestinal: normoactive bowel sounds Genitourinary: no suprapubic tenderness Skin: other (left leg wound vac) Musculoskeletal: other (left calf tenderness) Neurologic: AAOx3 Psychiatric: cooperative Lymph, Heme, Immunologic: no lymphadenopathy ICD10 Worksheet Patient Problems: Problems Problem Status Onset Acute blood loss anemia Acute CAD (coronary artery disease), [place] coronary artery Acute S/P mitral valve repair Acute S/P tricuspid valve repair Acute Thrombocytopenia Acute Valvular cardiomyopathy Acute CKD (chronic kidney disease) Chronic Chronic anticoagulation Chronic Chronic atrial fibrillation Chronic Immunosuppression Chronic
[2017-07-06] MEDS: BACITRACIN ZINC 14.2 GM OINTTUBE TP SCH ×2 (08:50→19:55)
[2017-07-06] MEDS: CARVEDILOL 6.25 MG TAB PO SCH ×2 (08:51→18:02)
[2017-07-06] MEDS: CYCLOSPORINE MODIFIED 25 MG PO SCH ×2 (08:51→19:56)
[2017-07-06] MEDS: DOCUSATE SODIUM 100 MG CAP PO SCH ×2 (08:51→19:56)
[2017-07-06] MEDS: predniSONE 5 MG TAB PO SCH (08:51)
[2017-07-06] MEDS: MYCOPHENOLATE MOFETIL 250 MG CAP PO SCH ×2 (08:54→19:56)
--- NOTE | 2017-07-06 09:21 | SOAPPROG ---
SOAP Progress Note Assessment/Plan: Assessment/Plan: 77 Y F s/p mechanical fall on anticoagulation with L anterior chin hematoma, s/p I&D, skin graft wound vac. POD#1. Appreciate cards input. May d/c anticoagulation. Continue wound vac x 5 days. Will likely keep patient in house. If graft takes, then won't need further wound vac care. If fails, then may need to replace vac to assist in wound granulation and healing. No weight bearing LLE. S: no pain in martins. has some pain in groin from the fall. eating breakfast. O: alert, nad, smiling. sitting up in bed vac to suction. +ecchymosis. no erythema or odors. palpable pedal pulses. 07/06/17 09:16 Objective: Vital Signs Temp Pulse Resp BP Pulse Ox 36.9 C 70 16 110/60 95 07/06/17 07:32 07/06/17 08:51 07/06/17 07:32 07/06/17 08:51 07/06/17 07:32 Laboratory Results 07/03/17 16:48 07/05/17 07/06/17 07/07/17 05:59 05:59 05:59 Intake Total 950 1100 Output Total 500 1125 275 Balance 450 -25 -275 PT 16.0 SEC (12.0-15.0) H 07/04/17 04:35 INR 1.26 (0.83-1.16) H 07/04/17 04:35 ICD10 Worksheet Patient Problems: Problems Problem Status Onset Acute blood loss anemia Acute CAD (coronary artery disease), [place] coronary artery Acute S/P mitral valve repair Acute S/P tricuspid valve repair Acute Thrombocytopenia Acute Valvular cardiomyopathy Acute CKD (chronic kidney disease) Chronic Chronic anticoagulation Chronic Chronic atrial fibrillation Chronic Immunosuppression Chronic
[2017-07-06] MEDS: HYDROCODONE/APAP 5/325 TAB PO PRN (16:06)
[2017-07-06] MEDS: CINACALCET HCL 30 MG TAB PO SCH (19:56)
[2017-07-06] MEDS: PRAVASTATIN SODIUM 20 MG TAB PO SCH (19:56)
[2017-07-07] MEDS ORDERED: MAGNESIUM SULF 1 GM/DEXTROSE 100 ML IV ONE (08:00)
[2017-07-07] MEDS: CARVEDILOL 6.25 MG TAB PO SCH ×2 (08:17→18:30)
[2017-07-07] MEDS: CYCLOSPORINE MODIFIED 25 MG PO SCH ×2 (08:17→19:58)
[2017-07-07] MEDS: DOCUSATE SODIUM 100 MG CAP PO SCH ×2 (08:18→19:57)
[2017-07-07] MEDS: MYCOPHENOLATE MOFETIL 250 MG CAP PO SCH ×2 (08:18→19:58)
[2017-07-07] MEDS: predniSONE 5 MG TAB PO SCH (08:19)
[2017-07-07] MEDS ORDERED: LACTULOSE 20 GM/30 ML UDCUP PO PRN (09:49)
[2017-07-07] MEDS ORDERED: BISACODYL 10 MG SUPP PR PRN (09:49)
[2017-07-07] MEDS ORDERED: MAGNESIUM HYDROXIDE 30 ML UDCUP PO PRN (09:49)
[2017-07-07] MEDS: BACITRACIN ZINC 14.2 GM OINTTUBE TP SCH ×2 (10:06→21:39)
--- NOTE | 2017-07-07 10:43 | SOAPPROG ---
SOAP Progress Note Assessment/Plan: Assessment: 77 Y F s/p mechanical fall on anticoagulation with L anterior martins hematoma, s/ p I&D, skin graft wound vac. POD#2 S: Doing well overall, biggest complaint is pain in her groin from her fall. Denies pain in left martins. O: Alert Afebrile No increased WOB LLE: Wound vac to suction, +ecchymosis, good pedal pulses Plan: Continue wound vac for a full 5 days. No weightbearing on LLE. Discussed expectations for skin graft. If it has not taken when wound vac is removed on day 5, will likely need additional skin graft and continued wound vac therapy. Will plan to keep her inpatient until wound vac can be taken off and wound can be assessed. Per cardiology, pt can stay off anticoagulation. 07/07/17 10:38 Objective: Vital Signs Temp Pulse Resp BP Pulse Ox 36.9 C 70 13 128/69 H 96 07/07/17 07:51 07/07/17 08:17 07/07/17 07:51 07/07/17 08:17 07/07/17 07:51 Laboratory Results 07/07/17 08:10 07/06/17 07/07/17 07/08/17 05:59 05:59 05:59 Intake Total 1100 850 Output Total 1125 1225 75 Balance -25 -375 -75 PT 16.0 SEC (12.0-15.0) H 07/04/17 04:35 INR 1.26 (0.83-1.16) H 07/04/17 04:35 ICD10 Worksheet Patient Problems: Problems Problem Status Onset Acute blood loss anemia Acute CAD (coronary artery disease), [place] coronary artery Acute S/P mitral valve repair Acute S/P tricuspid valve repair Acute Thrombocytopenia Acute Valvular cardiomyopathy Acute CKD (chronic kidney disease) Chronic Chronic anticoagulation Chronic Chronic atrial fibrillation Chronic Immunosuppression Chronic
[2017-07-07] MEDS: CALCIUM CARBONATE 500 MG TAB PO SCH ×2 (10:51→19:58)
[2017-07-07] MEDS: ACETAMINOPHEN 325 MG TAB PO PRN (11:10)
--- NOTE | 2017-07-07 13:29 | PDCARPN ---
Cardiology Progress Note Chief Complaint: left leg pain Assessment/Plan: Assessment: AF s/p MV repair/YOKASTA ligation hematoma Plan: 07/05/17 09:18 Surgery today for hematoma Given prior YOKASTA ligation and current hematoma, would suggest holding coumadin Continue other medications 07/06/17 06:43 stable post surgery Wound still actively draining Would hold coumadin currently, re-start when deemed suitable by surgery Patient has YOKASTA ligation which reduces but does not eliminate stroke risk in AF Patient does have elevated CHADS-VASc score However, patient is determined to continue to live active lifestyle (i.e. hiking trails which led to her fall) Not a watchman candidate as YOKASTA is already ligated After discussion with patient about options, best to hold AC tx until wound completely stops draining Patient is willing to discuss with Dr. Moreno as an outpatient about continuing vs eliminating this therapy Will follow as needed, please call with any questions 07/07/17 13:26 patient had brief non-sustained run of VT earlier this AM Mg level 1.7 Would add Mg supplement to keep level>2.0 Continue per surgery Re-start coumadin when OK by surgery however intermediate use of this medication may be limited given patient lifestyle/recent events Risk of AF CVA reduced given prior YOKASTA ligation Subjective: stable Reviewed/Discussed With: multidisciplinary team Time Spent With Patient: 25 min Objective: Vital Signs (8 Hrs) Temp Pulse Resp BP Pulse Ox 07/07/17 11:31 37.0 C 70 18 119/72 92 07/07/17 08:17 70 128/69 H 07/07/17 07:51 36.9 C 72 13 128/69 H 96 Intake/Output (24 Hrs) 07/06/17 07/07/17 07/08/17 05:59 05:59 05:59 Intake Total 1100 850 Output Total 1125 1225 685 Balance -25 -375 -685 Intake: Oral (ml) 500 850 IV Intake (ml) 600 Output: Urine (ml) 975 1050 600 Bedside Commode 450 Toilet 975 600 600 Estimated Blood Loss (ml) 50 Wound Vac Output (ml) 100 175 85 Left Anterior Leg 100 175 85 Other: Weight 70.76 kg Intake Quantity Yes Yes Sufficient Output Comment Bedside Commode Large void. Mixed with paper unable to measure Number of Voids Bedside Commode 1 Toilet 1 1 2 Result Diagrams: 07/03/17 15:36 07/07/17 08:10 - Physical Exam Constitutional: healthy appearing Eyes: PERRL Ears, Nose, Mouth, Throat: moist mucous membranes Cardiovascular: irregularly irregular Peripheral Pulses: 1+: femoral (R), femoral (L) Respiratory: clear to auscultate bilat Gastrointestinal: normoactive bowel sounds Genitourinary: no suprapubic tenderness Skin: warm Musculoskeletal: other (left calf wound vac) Neurologic: AAOx3 Psychiatric: cooperative ICD10 Worksheet Patient Problems: Problems Problem Status Onset Acute blood loss anemia Acute CAD (coronary artery disease), [place] coronary artery Acute S/P mitral valve repair Acute S/P tricuspid valve repair Acute Thrombocytopenia Acute Valvular cardiomyopathy Acute CKD (chronic kidney disease) Chronic Chronic anticoagulation Chronic Chronic atrial fibrillation Chronic Immunosuppression Chronic
--- NOTE | 2017-07-07 14:27 | ASMTCMCOM ---
CM Note CM Note Notes: Pt post op day #2 I & D, skin graft and wound vac placement, wv to be on 5 days. Wound will have to be assessed after the 5 days to determine further treatment. If pt requires wound vac at d/c case management will need to be notified. At this time OT/PT rec home vs. [facility]. Pt may not be able to have home care since she does not have a [place] PCP, pt states she does not have a PCP and gets medical treatment in [place] from her renal doctors. In [place] pt resides in [place]. CM will continue to follow. Date Signed: 07/07/2017 02:27 PM Electronically Signed By:ROSALINA Lara
[2017-07-07] MEDS: MAGNESIUM OXIDE 400 MG TAB PO SCH (14:41)
[2017-07-07] MEDS: POLYETHYLENE GLYCOL 3350 17 GM PKT PO PRN (19:15)
[2017-07-07] MEDS: CINACALCET HCL 30 MG TAB PO SCH (19:57)
[2017-07-07] MEDS: PRAVASTATIN SODIUM 20 MG TAB PO SCH (19:58)
[2017-07-07] MEDS: HYDROCODONE/APAP 5/325 TAB PO PRN (22:54)
[2017-07-08] MEDS: MYCOPHENOLATE MOFETIL 250 MG CAP PO SCH ×2 (07:48→20:47)
[2017-07-08] MEDS: DOCUSATE SODIUM 100 MG CAP PO SCH ×2 (07:50→20:47)
[2017-07-08] MEDS: MAGNESIUM OXIDE 400 MG TAB PO SCH (07:50)
[2017-07-08] MEDS: ACETAMINOPHEN 325 MG TAB PO PRN (07:51)
[2017-07-08] MEDS: CYCLOSPORINE MODIFIED 25 MG PO SCH ×2 (07:51→20:47)
[2017-07-08] MEDS: CARVEDILOL 6.25 MG TAB PO SCH ×2 (07:51→18:39)
[2017-07-08] MEDS: CALCIUM CARBONATE 500 MG TAB PO SCH ×2 (07:52→20:47)
[2017-07-08] MEDS: predniSONE 5 MG TAB PO SCH (07:52)
[2017-07-08] MEDS: POLYETHYLENE GLYCOL 3350 17 GM PKT PO PRN (07:53)
--- NOTE | 2017-07-08 07:55 | PDCARPN ---
Cardiology Progress Note Chief Complaint: LLE pain Assessment/Plan: Assessment: AF s/p MV repair/YOKASTA ligation hematoma Plan: 07/05/17 09:18 Surgery today for hematoma Given prior YOKASTA ligation and current hematoma, would suggest holding coumadin Continue other medications 07/06/17 06:43 stable post surgery Wound still actively draining Would hold coumadin currently, re-start when deemed suitable by surgery Patient has YOKASTA ligation which reduces but does not eliminate stroke risk in AF Patient does have elevated CHADS-VASc score However, patient is determined to continue to live active lifestyle (i.e. hiking trails which led to her fall) Not a watchman candidate as YOKASTA is already ligated After discussion with patient about options, best to hold AC tx until wound completely stops draining Patient is willing to discuss with Dr. Moreno as an outpatient about continuing vs eliminating this therapy Will follow as needed, please call with any questions 07/07/17 13:26 patient had brief non-sustained run of VT earlier this AM Mg level 1.7 Would add Mg supplement to keep level>2.0 Continue per surgery Re-start coumadin when OK by surgery however half-way use of this medication may be limited given patient lifestyle/recent events Risk of AF CVA reduced given prior YOKASTA ligation 07/08/17 07:53 Stable Continue per surgery Re-start AC tx when OK by surgery, patient to discuss with Dr. Moreno about long- term use Continue oral Mag ox Will follow prn Subjective: doing well Reviewed/Discussed With: multidisciplinary team Time Spent With Patient: 25 min Objective: Vital Signs (8 Hrs) Temp Pulse Resp BP Pulse Ox 07/08/17 03:54 36.9 C 71 16 116/67 96 Intake/Output (24 Hrs) 07/07/17 07/08/17 07/09/17 05:59 05:59 05:59 Intake Total 850 400 Output Total 1225 1685 Balance -375 -1285 Intake: Oral (ml) 850 400 Output: Urine (ml) 1050 1600 Bedside Commode 450 750 Toilet 600 850 Wound Vac Output (ml) 175 85 Left Anterior Leg 175 85 Other: Intake Quantity Yes Yes Sufficient Number of Voids Bedside Commode 1 Toilet 1 1 Result Diagrams: 07/03/17 15:36 07/07/17 08:10 - Physical Exam Constitutional: healthy appearing Eyes: PERRL Ears, Nose, Mouth, Throat: moist mucous membranes Cardiovascular: irregularly irregular Peripheral Pulses: 1+: femoral (R), femoral (L) Respiratory: clear to auscultate bilat Gastrointestinal: normoactive bowel sounds Genitourinary: no suprapubic tenderness Skin: no rashes Musculoskeletal: no muscular tenderness Neurologic: AAOx3 Psychiatric: cooperative ICD10 Worksheet Patient Problems: Problems Problem Status Onset Acute blood loss anemia Acute CAD (coronary artery disease), [place] coronary artery Acute S/P mitral valve repair Acute S/P tricuspid valve repair Acute Thrombocytopenia Acute Valvular cardiomyopathy Acute CKD (chronic kidney disease) Chronic Chronic anticoagulation Chronic Chronic atrial fibrillation Chronic Immunosuppression Chronic
[2017-07-08] MEDS ORDERED: ALBUMIN 5% 500 ML IV ONE (11:30)
[2017-07-08] MEDS: BACITRACIN ZINC 14.2 GM OINTTUBE TP SCH ×2 (11:36→20:47)
--- NOTE | 2017-07-08 17:05 | SOAPPROG ---
SOAP Progress Note Assessment/Plan: Assessment: 77 Y F s/p mechanical fall on anticoagulation with L anterior martins hematoma, s/ p I&D, skin graft wound vac. POD#2 S: Doing well overall, biggest complaint is pain in her groin from her fall. Denies pain in left martins. O: Alert Afebrile No increased WOB LLE: Wound vac to suction, +ecchymosis, good pedal pulses Plan: Continue wound vac for a full 5 days. No weightbearing on LLE. Discussed expectations for skin graft. If it has not taken when wound vac is removed on day 5, will likely need additional skin graft and continued wound vac therapy. Will plan to keep her inpatient until wound vac can be taken off and wound can be assessed. Per cardiology, pt can stay off anticoagulation. 07/07/17 10:38 07/08/17 17:04 Received call from RN this am about pt's BP. Pt was up working with PT and felt dizzy and lightheaded. BP was 68/45. She does have a history of HTN and takes Coreg. Her hypotensive event occurred about an hour after she took her Coreg. By the time I was able to assess pt, her BP had gone up to 98/52. Ordered 500ml bolus of Albumin 5%. She was back in bed and asymptomatic during visit. Other than that, she is stable. Denies pain in her LLE. Plan for wound vac removal tomorrow. Objective: Vital Signs Temp Pulse Resp BP Pulse Ox 37.3 C 70 16 106/82 H 98 07/08/17 15:23 07/08/17 15:23 07/08/17 15:23 07/08/17 15:23 07/08/17 15:23 Laboratory Results 07/07/17 08:10 07/07/17 07/08/17 07/09/17 05:59 05:59 05:59 Intake Total 850 400 490 Output Total 1225 1685 350 Balance -375 -1285 140 PT 16.0 SEC (12.0-15.0) H 07/04/17 04:35 INR 1.26 (0.83-1.16) H 07/04/17 04:35 ICD10 Worksheet Patient Problems: Problems Problem Status Onset Acute blood loss anemia Acute CAD (coronary artery disease), [place] coronary artery Acute S/P mitral valve repair Acute S/P tricuspid valve repair Acute Thrombocytopenia Acute Valvular cardiomyopathy Acute CKD (chronic kidney disease) Chronic Chronic anticoagulation Chronic Chronic atrial fibrillation Chronic Immunosuppression Chronic
[2017-07-08] MEDS: PRAVASTATIN SODIUM 20 MG TAB PO SCH (20:47)
[2017-07-08] MEDS: CINACALCET HCL 30 MG TAB PO SCH (20:48)
[2017-07-09] MEDS: HYDROCODONE/APAP 5/325 TAB PO PRN (02:23)
--- NOTE | 2017-07-09 07:09 | PDCARPN ---
Cardiology Progress Note Chief Complaint: LLE pain Assessment/Plan: Assessment: AF s/p MV repair/YOKASTA ligation hematoma Plan: 07/05/17 09:18 Surgery today for hematoma Given prior YOKASTA ligation and current hematoma, would suggest holding coumadin Continue other medications 07/06/17 06:43 stable post surgery Wound still actively draining Would hold coumadin currently, re-start when deemed suitable by surgery Patient has YOKASTA ligation which reduces but does not eliminate stroke risk in AF Patient does have elevated CHADS-VASc score However, patient is determined to continue to live active lifestyle (i.e. hiking trails which led to her fall) Not a watchman candidate as YOKASTA is already ligated After discussion with patient about options, best to hold AC tx until wound completely stops draining Patient is willing to discuss with Dr. Moreno as an outpatient about continuing vs eliminating this therapy Will follow as needed, please call with any questions 07/07/17 13:26 patient had brief non-sustained run of VT earlier this AM Mg level 1.7 Would add Mg supplement to keep level>2.0 Continue per surgery Re-start coumadin when OK by surgery however chcf use of this medication may be limited given patient lifestyle/recent events Risk of AF CVA reduced given prior YOKASTA ligation 07/08/17 07:53 Stable Continue per surgery Re-start AC tx when OK by surgery, patient to discuss with Dr. Moreno about long- term use Continue oral Mag ox Will follow prn 07/09/17 07:07 doing well brief runs of ectopy overnight--will increase coreg to 25 mg po bid continue other meds d/w Dr. Moreno--no need to resume AC tx given current issues. Patient can start ASA 325 mg po qd when cleared by surgery (no need for coumadin) Subjective: stable Reviewed/Discussed With: multidisciplinary team Time Spent With Patient: 25 min Objective: Vital Signs (8 Hrs) Temp Pulse Resp BP Pulse Ox 07/09/17 04:00 37.0 C 77 18 92/74 L 94 Intake/Output (24 Hrs) 07/08/17 07/09/17 07/10/17 05:59 05:59 05:59 Intake Total 400 2190 Output Total 1685 1600 Balance -1285 590 Intake: Oral (ml) 400 1690 IV Infused (ml) 500 Albumin 5% 500 ml @ As 500 Directed IV ONCE ONE Rx#: [id number] Output: Urine (ml) 1600 1600 Bedside Commode 750 1250 Toilet 850 350 Wound Vac Output (ml) 85 Left Anterior Leg 85 Other: Intake Quantity Yes Yes Sufficient Number of Voids Bedside Commode 1 1 Toilet 1 2 Result Diagrams: 07/03/17 15:36 07/07/17 08:10 - Physical Exam Constitutional: healthy appearing Eyes: PERRL Ears, Nose, Mouth, Throat: moist mucous membranes Cardiovascular: irregularly irregular Peripheral Pulses: 1+: femoral (R), femoral (L) Respiratory: clear to auscultate bilat Gastrointestinal: normoactive bowel sounds Genitourinary: no suprapubic tenderness Skin: no rashes Musculoskeletal: no muscular tenderness Neurologic: AAOx3 Psychiatric: cooperative ICD10 Worksheet Patient Problems: Problems Problem Status Onset Acute blood loss anemia Acute CAD (coronary artery disease), [place] coronary artery Acute S/P mitral valve repair Acute S/P tricuspid valve repair Acute Thrombocytopenia Acute Valvular cardiomyopathy Acute CKD (chronic kidney disease) Chronic Chronic anticoagulation Chronic Chronic atrial fibrillation Chronic Immunosuppression Chronic
[2017-07-09] MEDS ORDERED: CARVEDILOL 25 MG TAB PO SCH (08:00)
[2017-07-09] MEDS: MYCOPHENOLATE MOFETIL 250 MG CAP PO SCH (08:19)
[2017-07-09] MEDS: DOCUSATE SODIUM 100 MG CAP PO SCH (08:19)
[2017-07-09] MEDS: predniSONE 5 MG TAB PO SCH (08:19)
[2017-07-09] MEDS: MAGNESIUM OXIDE 400 MG TAB PO SCH (08:19)
[2017-07-09] MEDS: CALCIUM CARBONATE 500 MG TAB PO SCH (08:19)
[2017-07-09] MEDS: CYCLOSPORINE MODIFIED 25 MG PO SCH (08:20)
[2017-07-09] MEDS: BACITRACIN ZINC 14.2 GM OINTTUBE TP SCH (08:20)
[2017-07-09] MEDS ORDERED: CARVEDILOL 6.25 MG TAB PO SCH (10:30)
--- NOTE | 2017-07-09 11:23 | SOAPPROG ---
SOAP Progress Note Assessment/Plan: Assessment: 77 Y F s/p mechanical fall on anticoagulation with L anterior martins hematoma, s/ p I&D, skin graft wound vac. POD#2 S: Doing well overall, biggest complaint is pain in her groin from her fall. Denies pain in left martins. O: Alert Afebrile No increased WOB LLE: Wound vac to suction, +ecchymosis, good pedal pulses Plan: Continue wound vac for a full 5 days. No weightbearing on LLE. Discussed expectations for skin graft. If it has not taken when wound vac is removed on day 5, will likely need additional skin graft and continued wound vac therapy. Will plan to keep her inpatient until wound vac can be taken off and wound can be assessed. Per cardiology, pt can stay off anticoagulation. 07/07/17 10:38 07/08/17 17:04 Received call from RN this am about pt's BP. Pt was up working with PT and felt dizzy and lightheaded. BP was 68/45. She does have a history of HTN and takes Coreg. Her hypotensive event occurred about an hour after she took her Coreg. By the time I was able to assess pt, her BP had gone up to 98/52. Ordered 500ml bolus of Albumin 5%. She was back in bed and asymptomatic during visit. Other than that, she is stable. Denies pain in her LLE. Plan for wound vac removal tomorrow. 07/09/17 11:18 Wound vac taken down today. STSG with 70% take. Redressed with vaseline gauze , 4x4s, abd pads, kerlix and LUIS M wrap. Plan for discharge home today. Ok to bear weight on LLE. Discussed with pt the importance of avoiding trauma and shear forces. Follow up with Dr. Puente on Wednesday. BP is still low- 90s/50s. pt says this is somewhat normal for her. Cardiology had ordered an increased dose of Coreg for ectopies over night, but then decreased dose back down due to BP. Objective: Vital Signs Temp Pulse Resp BP Pulse Ox 36.4 C 72 15 93/58 L 96 07/09/17 08:00 07/09/17 10:44 07/09/17 08:00 07/09/17 10:44 07/09/17 08:00 Laboratory Results 07/07/17 08:10 07/08/17 07/09/17 07/10/17 05:59 05:59 05:59 Intake Total 400 2190 Output Total 1685 1600 Balance -1285 590 PT 16.0 SEC (12.0-15.0) H 07/04/17 04:35 INR 1.26 (0.83-1.16) H 07/04/17 04:35 ICD10 Worksheet Patient Problems: Problems Problem Status Onset Acute blood loss anemia Acute CAD (coronary artery disease), [place] coronary artery Acute S/P mitral valve repair Acute S/P tricuspid valve repair Acute Thrombocytopenia Acute Valvular cardiomyopathy Acute CKD (chronic kidney disease) Chronic Chronic anticoagulation Chronic Chronic atrial fibrillation Chronic Immunosuppression Chronic
[2017-07-09 11:33] VITALS: BP 103/65
--- NOTE | 2017-07-09 11:41 | PDIAF ---
- Diagnosis Code Status: Full Code - Medication Management Discharge Medications: Medications to Continue on Transfer Cinacalcet HCl [Sensipar (*)] 60 mg PO HS 04/23/12 [Last Taken 07/02/17] cycloSPORINE, MODIFIED [Gengraf] 25 mg PO DAILY 04/19/15 [Last Taken 07/03/17] cycloSPORINE, MODIFIED [Gengraf] 25 mg PO HS 04/19/15 [Last Taken 07/02/17] Pravastatin Sodium 20 mg PO HS #30 tablet 04/28/15 [Last Taken 07/02/17] predniSONE 5 mg PO DAILY #30 tab 04/28/15 [Last Taken 07/03/17] Calcium Carbonate [Oyster Shell Calcium 500 mg (*)] 500 mg PO BID 07/06/16 [ Last Taken 07/03/17 09:00] Carvedilol [Coreg (*)] 12.5 mg PO BIDMEAL 07/06/16 [Last Taken 07/03/17 09:00] Albuterol Sulfate [Ventolin Hfa] 1 - 2 puffs IH Q6 PRN 07/03/17 [Last Taken Unknown] Mycophenolate Mofetil [Cellcept] 750 mg PO BID 07/04/17 [Last Taken Unknown] Carvedilol [Coreg (*)] 12.5 mg PO BIDMEAL tab 07/09/17 [Last Taken Unknown] Hydrocodone/APAP 5/325 [[place] 5/325 (*)] 1 - 2 tab PO Q6HRS PRN #20 tab [Last Taken Unknown] Discharge Medications: Refer to the Discharge Home Medication list for PRN reason. - Orders Services needed: Home Care, Registered Nurse, Physical Therapy Home Care Face to Face: I certify that this patient was under my care and that I had the required [id number] encounter meeting the encounter requirements on the discharge day. My findings support the fact that the patient is homebound as defined in Home Care Face to Face Continued: CMS Chapter 7 Medicare Benefits Manual 30.1.1 , The condition of the patient is such that there exists a normal inability to leave home and consequently, leaving home would require a considerable and taxing effort. Diet Recommendation: no restrictions on diet Diet Texture: Regular Texture Diet Additional Instructions: Leave dressing in place until you see us in the office on Wednesday. Keep dressing dry. You may bear weight on your left foot. Avoid any contact with dressing, so that skin graft can continue to heal. Follow up in our office on Wednesday. Call if your dressing becomes saturated, or if you experience increased pain or fever. - Follow Up Care Current Providers and Referrals: Joel Puente MD [Medical Doctor] - 07/14/17 NONE *PRIMARY CARE P,. [Primary Care Provider] - As per Instructions
[2017-07-09] MEDS ORDERED: MAGNESIUM SULF 1 GM/DEXTROSE 100 ML IV ONE (12:12)
--- NOTE | 2017-07-09 15:35 | ASMTCMCOM ---
CM Note CM Note Notes: Pt wound vac removed and medically stable for d/c, pt declines HHC. Pt is able to bear weight on LLE. Pt reports she has had home health in the past and does not see it is necessary, she know she will just take time to heal. Pt to follow up with Dr. Puente next week. Date Signed: 07/09/2017 03:34 PM Electronically Signed By:ROSALINA Lara
--- NOTE | 2017-07-11 19:20 | GOP ---
[f rep st] OPERATIVE REPORT DATE OF OPERATION: 07/05/2017 SURGEON: Joel Puente MD [employer] SUPERINTENDENT: CELESTE Larson. PREOPERATIVE DIAGNOSIS: Left leg hematoma. POSTOPERATIVE DIAGNOSIS: Left leg hematoma. PROCEDURE PERFORMED: Incision and drainage of the left leg hematoma with split-thickness skin graft and wound VAC placement with repair of a 25 cm laceration. FINDINGS: The patient was found to have a giant hematoma of the medial aspect of the left leg measur ing over 25 cm. The skin over the hematoma appeared to be marginally viable, and the base was clean and intact. DESCRIPTION OF PROCEDURE: Patient taken to the operating room and received satisfactory general endo tracheal anesthesia. She was placed in supine position and prepped and draped in the usual sterile f ashion. Incision was made over the hematoma and dissection extended through the superficial skin. A ll of the hematoma was evacuated. The wound was thoroughly irrigated and washed with a pulse lavage. Portions of the skin overlying the hematoma were tacked down and closed with skin álvaro. A free portion of the skin was meshed in a 1-1/2:1 manner and placed on the open portions of the wound as a split-thickness skin graft. It too was anchored with skin álvaro. The entire defect was recovered. It was then dressed with Xeroform gauze and a wound VAC and treated as a free skin graft. Hemostas is had been obtained. The wound had been sprayed with some topical thrombin. Blood loss was negligi ble. She tolerated the procedure well. She was taken to recovery room in good condition with wound VAC in place. There were no complications. /[id number]/MODL
--- NOTE | 2017-08-11 16:41 | GDS ---
[f rep st] DISCHARGE SUMMARY DIAGNOSES: 1. Acute blood loss anemia. 2. Coronary artery disease. 3. Thrombocytopenia. 4. Valvular cardiomyopathy. 5. Chronic anticoagulation. 6. Chronic atrial fibrillation. 7. Chronic kidney disease. 8. Immunosuppression. 9. Acute kidney injury. 10. Secondary tricuspid valve regurgitation. 11. Severe mitral regurgitation. 12. Stress hyperglycemia. 13. Hematoma of left anterior martins. CONSULTATIONS: General Surgery, by Dr. Joel Puente; Cardiology by Dr. Baeza. SPECIAL TESTS: None. PROCEDURES: Incision and drainage of the left leg hematoma with split-thickness skin graft and wound VAC placement with repair of a 25 cm laceration. INTRAOPERATIVE FINDINGS: The patient was found to have a giant hematoma of the medial aspect of the left leg measuring over 25 cm. The skin over the hematoma appeared to be marginally viable, and the base was clean and intact. HOSPITAL COURSE: This is a 77-year-old female, status post mechanical fall, who was on anticoagulati on for atrial fibrillation. She sustained a left anterior martins hematoma. While in the hospital, she underwent irrigation and debridement, skin graft and wound VAC placement. The wound VAC was placed to continuous suction for a full 5 days, and patient was not allowed to weightbear on her left lower extremity. The wound VAC was taken down on postop day #5. The split-thickness skin graft had about 70% take. It was redressed with Vaseline gauze, 4x4s, ABD pad, Kerlix and an Mariano wrap prior to disch arge. While in the hospital, she had an episode of hypotension, and her blood pressure was in the 90 s over 50s, which the patient said was normal for her. The patient was seen by Cardiology while in [facility] for her diagnosis of chronic atrial fibrillation. However, they felt that the patient di d not need to be on Coumadin at that time, so that order was discontinued. Instead, she was placed o n aspirin 325 mg daily. Her episode of hypotension was thought to be due to an increase in her Coreg dose from 12.5 mg b.i.d. up to 25 mg b.i.d. Due to the hypotension, her dose was then decreased ivan k to the original dosage. The patient was discharged in good condition to home care. We advised shilo the dressings stay in place until she saw us in the office for a postoperative visit. She was able to bear weight on her left foot. However, we did advise her to avoid any contact with the dressing to allow the skin graft to heal appropriately. She was then asked to follow up in our office in 5 da ys. DISCHARGE MEDICATIONS: For accurate medication list, please see MAY. /[id number]/MODL
== END 2017-07-09 13:39 | disposition home or self-care (01) | DRG 580 ==
LOC: OBSVTOIN 16:22 → UNDOADMOB 16:22 → INTOOBSV 16:22 → F3N 18:09 → OBSVTOIN 07-04 15:17 → F3N 07-04 15:17 → UNDODISIN 07-09 13:39
PROVIDERS: ADMIT Surgery; ATTEND Surgery
DX: S80.12XA Contusion of left lower leg, initial encounter (principal); Z94.0 Kidney transplant status; Z79.01 Long term (current) use of anticoagulants; W18.39XA Other fall on same level, initial encounter; Y93.01 Activity, walking, marching and hiking; Z95.810 Presence of automatic (implantable) cardiac defibrillator; M32.9 Systemic lupus erythematosus, unspecified; I25.10 Atherosclerotic heart disease of native coronary artery without angina pectoris; I10 Essential (primary) hypertension
CPT/HCPCS: 96365; 96366; 97116-GP; 97161-GP; 97165-GO; 97168-GO; 97530-GO; 97535-GO; C9132; G0378; G8978-GP-CI; G8978-GP-CK; G8979-GP-CI; G8980-GP-CI; G8987-GO-CI; G8988-GO-CI; G8989-GO-CI; J0690; J1100; J2250; J2370; J2405; J2597; J2704; J3010; J3430; J3475; J7512; P9041

== ENCOUNTER 2017-08-11 09:11 | Inpatient (IN) | payer OTHER, BC ==
[2017-08-11] MEDS ORDERED: ceFAZolin 2 GM/SWFI 2 GM/20 ML SYR IVP ONE (09:23)
[2017-08-11] MEDS ORDERED: LIDOCAINE 1% 2 ML INJ ID PRN (09:25)
[2017-08-11] MEDS ORDERED: LR 1,000 ML IV ONE (09:25)
[2017-08-11] MEDS ORDERED: MINERAL OIL 10 ML VIAL ONE (09:40)
[2017-08-11] MEDS ORDERED: BUPIVACAINE/EPI 0.5% 30 ML SDV ONE (09:40)
[2017-08-11] MEDS ORDERED: BUPIVACAINE 0.5% 30 ML SDV ONE (09:40)
[2017-08-11] MEDS ORDERED: THROMBIN (BOVINE) 20,000 UNIT SPRAY TP ONE (09:40)
[2017-08-11] MEDS ORDERED: BACITRACIN 50,000 UNITS/10 ML SYR IRR ONE (09:41)
[2017-08-11] MEDS ORDERED: POLYMYXIN B SULFATE 500,000 UNIT/10 ML SYR IRR ONE (09:41)
[2017-08-11] MEDS ORDERED: ceFAZolin 2 GM/DEXTROSE 100 ML IV ONE (10:00)
--- NOTE | 2017-08-11 11:34 | PDHPUP ---
History & Physical Update H&P update statement: This history and physical update is based on an assessment of the patient which was completed after admission or registration (within 24 hours), but prior to the surgery/procedure. H&P update: H&P reviewed & patient examined, no change in patient's condition since H&P completed
--- NOTE | 2017-08-11 11:50 | PDANEPAE ---
ANE History of Present Illness split thickness skin graft ANE Past Medical History - Cardiovascular History Hx Hypertension: Yes Hx Arrhythmias: Yes Hx Chest Pain: No Hx Coronary Artery / Peripheral Vascular Disease: Yes Hx CHF / Valvular Disease: Yes Hx Palpitations: No Cardiovascular History Comment: afib. chf. pvd. cad with failed cabg. aicd that was changed to pacer 07/2016. s/p MVR in 2017 due to MR. mvr in 2016 with naomi - Pulmonary History Hx COPD: No Hx Asthma/Reactive Airway Disease: Yes Hx Recent Upper Respiratory Infection: No Hx Oxygen in Use at Home: No Hx Sleep Apnea: No Sleep Apnea Screening Result - Last Documented: Negative Pulmonary History Comment: hx of asthma hasn't used inhaler in a long time - Neurologic History Hx Cerebrovascular Accident: No Hx Seizures: No Hx Dementia: No - Endocrine History Hx Diabetes: No Hypothyroid: No Hyperthyroid: No Obesity: no - Renal History Hx Renal Disorders: Yes Renal History Comment: hx of kidney transplant in 2017 no problems currently. hx of ckd since age 19 - Liver History Hx Hepatic Disorders: No - Neurological & Psychiatric Hx Hx Neurological and Psychiatric Disorders: No - Cancer History Hx Cancer: Yes Cancer History Comment: skin ca - Congenital Disorder History Hx Congenital Disorders: No - GI History GERD: no Hx Gastrointestinal Disorders: Yes Gastrointestinal History Comment: constipation with narcotics. - Other Health History Other Health History: very fragile skin- lots of bruising. lupus. thrombocytopenia. hx of anemia. immunosuppression. wears glasses. macular degeneration - Chronic Pain History Chronic Pain: Yes (arthritic pain to most joints- neck is the worst) - Surgical History Prior Surgeries: left calf hematoma evacuated with Puente 07/05/17. changed out AICD to pacemaker 07/06/16. MVR 2015. cataract surgery 2012. left kidney transplant 2010- was donor. AICD 2006. 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 Pacemaker Model: 3222 Pacemaker Mode: DDIR Pacemaker Set Rate: 70 Date Pacemaker Last Checked: 06/29/17 ANE Patient History - Allergies Allergies/Adverse Reactions: clindamycin Allergy (Verified 08/10/17 17:02) huge red rash all over trunk ertapenem Allergy (Verified 08/10/17 17:02) severe hallucinations- hospitalized for 8 days after taking sevelamer HCl [From Renagel] Allergy (Verified 08/10/17 17:02) unknown reaction probably just didn't agree with me Tetanus Vaccines and Toxoid Allergy (Verified 08/10/17 17:02) bad localized reaction at injection site - Home Medications Home Medications: Cinacalcet HCl [Sensipar (*)] HS 04/23/12 [Last Taken 08/10/17 21:30] cycloSPORINE, MODIFIED [Gengraf] DAILY 04/19/15 [Last Taken 08/10/17 21:30] Calcium Carbonate [Oyster Shell Calcium 500 mg (*)] BID 07/06/16 [Last Taken 07/23 09:00] Mycophenolate Mofetil [Cellcept] BID 07/04/17 [Last Taken 08/10/17 21:30] ACETAMINOPHEN 08/10/17 [Last Taken 08/09/17] Aspirin 325 mg (*) 08/10/17 [Last Taken 08/10/17 21:30] Carvedilol [Coreg (*)] BID 08/10/17 [Last Taken 08/10/17 21:30] Hydrocodone/APAP 5/325 [[place] 5/325 (*)] Q6HRS PRN 08/10/17 [Last Taken 07:00] Pravastatin Sodium HS 08/10/17 [Last Taken 08/10/17 21:30] predniSONE DAILY 08/10/17 [Last Taken 08/10/17 09:00] - NPO status NPO Since - Liquids (Date): 08/10/17 NPO Since - Liquids (Time): 21:30 NPO Since - Solids (Date): 08/10/17 NPO Since - Solids (Time): 21:30 - Anes Hx Anes Hx: no prior problems - Smoking Hx Smoking Status: Never smoked Marijuana use: No - Alcohol Use Alcohol Use: Other (1-2 glasses of wine/week) - Family Anes Hx Family Hx Anesthesia Complications: mother- n/v ANE Labs/Vital Signs - Vital Signs Blood Pressure: 146/86 Heart Rate: 72 Respiratory Rate: 20 O2 Sat (%): 99 Height: 162.56 cm Weight: 70.76 kg ANE Physical Exam - Airway Neck exam: FROM Mallampati Score: Class 1 Mouth exam: normal dental/mouth exam - Pulmonary Pulmonary: clear to auscultation - Cardiovascular Cardiovascular: irregularly irregular - ASA Status ASA Status: III ANE Anesthesia Plan Anesthesia Plan: GA w LMA
[2017-08-11] MEDS ORDERED: PROPOFOL 200 MG/20 ML VIAL ONE (12:01)
[2017-08-11] MEDS ORDERED: DEXAMETHASONE 4 MG/ML VIAL ONE (12:01)
[2017-08-11] MEDS ORDERED: fentaNYL 100 MCG/2 ML INJ ONE ×2 (12:01→13:07)
[2017-08-11] MEDS ORDERED: PHENYLEPHRINE HCL 100 MCG/ML SYR ONE (12:24)
[2017-08-11] MEDS ORDERED: ONDANSETRON 4 MG/2 ML VIAL ONE (12:35)
[2017-08-11] MEDS ORDERED: fentaNYL 100 MCG/2 ML INJ IVP PRN (12:45)
[2017-08-11] MEDS ORDERED: ONDANSETRON 4 MG/2 ML VIAL IVP PRN ×2 (12:45→12:58)
[2017-08-11] MEDS ORDERED: HYDROmorphONE/DILAUDID 2 MG/ML INJ IVP PRN (12:45)
[2017-08-11] MEDS ORDERED: NALOXONE HCL 0.4 MG/ML INJ IVP PRN (12:45)
--- NOTE | 2017-08-11 12:53 | POSTOPPROG ---
Post Op Note Date of Operation: 08/11/17 Surgeon: Joel Puente Tax Investigator: Kimberly Griggs Anesthesiologist: Jos Mann Anesthesia: GET(General Endotracheal) Pre-op Diagnosis: open L leg wound, hx large traumatic hematoma Post-op Diagnosis: same Procedure: L leg STSG c wound vac placement and upper L thigh donor site Findings: vac to good suction Inf/Abcess present in the surg proc area at time of surgery?: No EBL: Minimal Complications: none Drains: Wound Vac
[2017-08-11] MEDS ORDERED: HYDROCODONE/APAP 5/325 TAB PO PRN (12:58)
[2017-08-11] MEDS ORDERED: HYDROmorphONE/DILAUDID 1 MG/ML INJ IVP PRN (12:58)
[2017-08-11] MEDS ORDERED: HYDROCODONE/APAP 5/325 TAB ONE (13:23)
[2017-08-11] MEDS ORDERED: ACETAMINOPHEN 500 MG TAB PO PRN (16:33)
[2017-08-11] MEDS ORDERED: CALCIUM CARBONATE 500 MG CHEWABLE TAB PO SCH (17:00)
[2017-08-11] MEDS ORDERED: CARVEDILOL 6.25 MG TAB PO SCH (18:00)
[2017-08-11] MEDS: DOCUSATE SODIUM 100 MG CAP PO SCH (20:10)
[2017-08-11] MEDS: PRAVASTATIN SODIUM 20 MG TAB PO SCH (20:10)
[2017-08-11] MEDS: CARVEDILOL 6.25 MG TAB PO SCH (20:10)
[2017-08-11] MEDS: CINACALCET HCL 30 MG TAB PO SCH (20:11)
[2017-08-11] MEDS: ASPIRIN 325 MG TAB PO SCH (20:11)
[2017-08-11] MEDS: CYCLOSPORINE MODIFIED 25 MG PO SCH (20:11)
[2017-08-11] MEDS: CALCIUM CARBONATE 500 MG CHEWABLE TAB PO SCH (20:11)
[2017-08-11] MEDS: MYCOPHENOLATE MOFETIL 250 MG CAP PO SCH (20:12)
[2017-08-11] MEDS: EYE EACHEYE SCH (20:12)
[2017-08-11] MEDS: LIFITEGRAST 5% EACHEYE SCH (20:12)
[2017-08-12] MEDS: CYCLOSPORINE MODIFIED 25 MG PO SCH ×2 (07:28→20:43)
[2017-08-12] MEDS: PRESERVISION AREDS2 FORMULA EYE VIT 1 EACH PO SCH ×2 (07:29→15:10)
[2017-08-12] MEDS: DOCUSATE SODIUM 100 MG CAP PO SCH ×2 (07:29→20:44)
[2017-08-12] MEDS: predniSONE 5 MG TAB PO SCH (07:30)
[2017-08-12] MEDS: MYCOPHENOLATE MOFETIL 250 MG CAP PO SCH ×2 (07:31→20:45)
[2017-08-12] MEDS: ENOXAPARIN 40 MG/0.4 ML SYR SC SCH (07:36)
[2017-08-12] MEDS: CALCIUM CARBONATE 500 MG CHEWABLE TAB PO SCH ×2 (07:39→20:43)
--- NOTE | 2017-08-12 08:24 | PDMN ---
Medical Necessity Medical necessity: Pt meets IP order per PA; est los >2 mn s/p L leg skin graft w/wound vac placement & upper L thigh donor site; admit for inpatient wound vac treatment & immobility to protect pt's split thickness skin graft; hx large traumatic hematoma, CHF, AFIB on AC, PVD, renal transplant, lupus; per H&P & order 08/11/17
--- NOTE | 2017-08-12 10:29 | SOAPPROG ---
SOAP Progress Note Assessment/Plan: Assessment: 77 y/o female s/p recent hospitalization for fall while on anticoagulation with hematoma to left anterior martins. Now, s/p STSG from left thigh to left anterior martins with wound vac placement POD #1 S: Doing very well. Denies pain. Not ready to be discharged home yet, but thinks she'll be ready tomorrow. O: Alert Afebrile LLE: Anterior thigh donor site with silver dressing. Dressing was changed this am due to saturation of original dressing. Anterior martins with wound vac to suction. +pedal pulses Plan: Likely dispo home tomorrow with home care. Will have PT work on stairs with pt, as pt has 3 sets of stairs at home. Wound vac to stay on for 5 days. Will need to take it down in the office. Pt seen with Dr. Reardon. 08/12/17 10:22 Objective: Vital Signs Temp Pulse Resp BP Pulse Ox 36.7 C 81 18 151/88 H 98 08/12/17 04:15 08/12/17 04:15 08/12/17 04:15 08/12/17 04:15 08/12/17 04:15 Laboratory Results 08/12/17 05:12 08/12/17 05:12 08/11/17 08/12/17 08/13/17 05:59 05:59 05:59 Intake Total 1460 Output Total 5 Balance 1455 ICD10 Worksheet Patient Problems: Problems Problem Status Onset Acute blood loss anemia Acute CAD (coronary artery disease), [place] coronary artery Acute S/P mitral valve repair Acute S/P tricuspid valve repair Acute Thrombocytopenia Acute Valvular cardiomyopathy Acute CKD (chronic kidney disease) Chronic Chronic anticoagulation Chronic Chronic atrial fibrillation Chronic Immunosuppression Chronic
[2017-08-12] MEDS: CARVEDILOL 6.25 MG TAB PO SCH ×2 (10:51→20:43)
[2017-08-12] MEDS: EYE EACHEYE SCH ×2 (10:52→21:50)
[2017-08-12] MEDS: LIFITEGRAST 5% EACHEYE SCH ×2 (10:52→21:50)
--- NOTE | 2017-08-12 12:53 | ASMTCMCOM ---
CM Note CM Note Notes: Pt is s/p a planned L martins debridement and skin graft after sustaining a martins hematoma from a fall while hiking. She has a wound vac in place and will need it for 5 days. She brought a wound vac from home and will d/c with it. Has had [facility] in the past and is agreeable to having them again. Referral sent via [employer]. Pt would like to talk to Dr Puente re her d/c - he had encouraged her to stay here with the wound vac for the 5 days. At this time, pt is not comfortable with discharging home today or tomorrow. CM will continue to follow for d/c needs. Date Signed: 08/12/2017 12:52 PM Electronically Signed By:ROSALINA Dasilva
[2017-08-12] MEDS: ASPIRIN 325 MG TAB PO SCH (20:43)
[2017-08-12] MEDS: PRAVASTATIN SODIUM 20 MG TAB PO SCH (20:43)
[2017-08-12] MEDS: CINACALCET HCL 30 MG TAB PO SCH (21:51)
[2017-08-13] MEDS: EYE EACHEYE SCH ×2 (09:02→21:21)
[2017-08-13] MEDS: LIFITEGRAST 5% EACHEYE SCH ×2 (09:02→21:21)
[2017-08-13] MEDS: CALCIUM CARBONATE 500 MG CHEWABLE TAB PO SCH ×2 (09:56→21:21)
[2017-08-13] MEDS: MYCOPHENOLATE MOFETIL 250 MG CAP PO SCH ×2 (09:56→21:22)
[2017-08-13] MEDS: predniSONE 5 MG TAB PO SCH (09:56)
[2017-08-13] MEDS: PRESERVISION AREDS2 FORMULA EYE VIT 1 EACH PO SCH ×2 (09:56→15:51)
[2017-08-13] MEDS: CYCLOSPORINE MODIFIED 25 MG PO SCH ×2 (09:56→21:22)
[2017-08-13] MEDS: DOCUSATE SODIUM 100 MG CAP PO SCH ×2 (09:56→21:22)
[2017-08-13] MEDS: CARVEDILOL 6.25 MG TAB PO SCH ×2 (09:56→21:22)
[2017-08-13] MEDS: ENOXAPARIN 40 MG/0.4 ML SYR SC SCH (10:00)
--- NOTE | 2017-08-13 10:21 | SOAPPROG ---
SOAP Progress Note Assessment/Plan: Assessment: 77 y/o female s/p recent hospitalization for fall while on anticoagulation with hematoma to left anterior martins. Now, s/p STSG from left thigh to left anterior martins with wound vac placement POD #1 S: Doing very well. Denies pain. Not ready to be discharged home yet, but thinks she'll be ready tomorrow. O: Alert Afebrile LLE: Anterior thigh donor site with silver dressing. Dressing was changed this am due to saturation of original dressing. Anterior martins with wound vac to suction. +pedal pulses Plan: Likely dispo home tomorrow with home care. Will have PT work on stairs with pt, as pt has 3 sets of stairs at home. Wound vac to stay on for 5 days. Will need to take it down in the office. Pt seen with Dr. Reardon. 08/12/17 10:22 08/13/17 10:19 Continues to do well. Denies pain. Left thigh dressing cdi. Wound vac to left anterior martins to suction with no leak. Discussed case with Dr. Puente, who would like her to avoid bearing weight on LLE. Most likely she will stay admitted through the weekend. Objective: Vital Signs Temp Pulse Resp BP Pulse Ox 36.6 C 70 14 138/71 H 98 08/13/17 07:10 08/13/17 09:56 08/13/17 07:10 08/13/17 09:56 08/13/17 07:10 Laboratory Results 08/12/17 05:12 08/12/17 05:12 08/12/17 08/13/17 08/14/17 05:59 05:59 05:59 Intake Total 1460 200 Output Total 5 1 Balance 1455 199 ICD10 Worksheet Patient Problems: Problems Problem Status Onset Acute blood loss anemia Acute CAD (coronary artery disease), [place] coronary artery Acute S/P mitral valve repair Acute S/P tricuspid valve repair Acute Thrombocytopenia Acute Valvular cardiomyopathy Acute CKD (chronic kidney disease) Chronic Chronic anticoagulation Chronic Chronic atrial fibrillation Chronic Immunosuppression Chronic
--- NOTE | 2017-08-13 15:48 | ASMTCMCOM ---
CM Note CM Note Notes: Chart reviewed for dc needs. Per surgery likely here through the weekend. Call to [facility] to alert them as she is current with them for HHC. CM to follow. Plan: dc to home when medically stable. Date Signed: 08/13/2017 03:47 PM Electronically Signed By:Magui Kee RN
[2017-08-13] MEDS: ASPIRIN 325 MG TAB PO SCH (21:21)
[2017-08-13] MEDS: PRAVASTATIN SODIUM 20 MG TAB PO SCH (21:22)
[2017-08-13] MEDS: CINACALCET HCL 30 MG TAB PO SCH (21:22)
[2017-08-14 07:32] VITALS: BP 147/80
[2017-08-14] MEDS: DOCUSATE SODIUM 100 MG CAP PO SCH (08:50)
[2017-08-14] MEDS: MYCOPHENOLATE MOFETIL 250 MG CAP PO SCH (08:50)
[2017-08-14] MEDS: ENOXAPARIN 40 MG/0.4 ML SYR SC SCH (08:50)
[2017-08-14] MEDS: predniSONE 5 MG TAB PO SCH (08:51)
[2017-08-14] MEDS: CYCLOSPORINE MODIFIED 25 MG PO SCH (08:51)
[2017-08-14] MEDS: CARVEDILOL 6.25 MG TAB PO SCH (08:51)
[2017-08-14] MEDS: PRESERVISION AREDS2 FORMULA EYE VIT 1 EACH PO SCH (08:51)
[2017-08-14] MEDS: CALCIUM CARBONATE 500 MG CHEWABLE TAB PO SCH (08:51)
[2017-08-14] MEDS: EYE EACHEYE SCH (08:52)
[2017-08-14] MEDS: LIFITEGRAST 5% EACHEYE SCH (08:52)
--- NOTE | 2017-08-14 10:03 | SOAPPROG ---
SOAP Progress Note Assessment/Plan: Assessment: 77 FEMALE SP STSG TO LEG AFEBRILE/ WOUNDS OK/ AMBULATING OK Plan:HOME TODAY WITH WOUND VAC 08/14/17 10:02 Objective: Vital Signs Temp Pulse Resp BP Pulse Ox 36.8 C 69 18 147/80 H 96 08/14/17 07:32 08/14/17 08:51 08/14/17 07:32 08/14/17 08:51 08/14/17 07:32 Laboratory Results 08/12/17 05:12 08/12/17 05:12 08/13/17 08/14/17 08/15/17 05:59 05:59 05:59 Intake Total 200 Output Total 1 Balance 199 ICD10 Worksheet Patient Problems: Problems Problem Status Onset Acute blood loss anemia Acute CAD (coronary artery disease), [place] coronary artery Acute S/P mitral valve repair Acute S/P tricuspid valve repair Acute Thrombocytopenia Acute Valvular cardiomyopathy Acute CKD (chronic kidney disease) Chronic Chronic anticoagulation Chronic Chronic atrial fibrillation Chronic Immunosuppression Chronic
--- NOTE | 2017-08-14 11:58 | PDIAF ---
- Diagnosis Diagnosis: LEG HEMATOMA STATUS POST SKIN GRAFT Code Status: Full Code - Medication Management Discharge Medications: Medications to Continue on Transfer Acetaminophen [Tylenol ES 500 mg (*)] 500 mg PO Q6 PRN 08/11/17 [Last Taken 3 Days Ago ~08/08/17] Aspirin [Aspirin 325 mg (*)] 325 mg PO HS 08/11/17 [Last Taken 08/10/17] C/E/Zn/Cu/OM3/DHA/EPA/LUT/ZEAX [Preservision Areds 2 Softgel] 1 each PO BID AT 7AM AND 3PM 08/11/17 [Last Taken 08/11/17 15:00] Calcium Carbonate 600 mg PO BID 08/11/17 [Last Taken 08/11/17 15:00] Carvedilol [Coreg] 12.5 mg PO BIDMEAL 08/11/17 [Last Taken 08/11/17 15:00] Cinacalcet HCl [Sensipar] 60 mg PO HS 08/11/17 [Last Taken 08/10/17] Hydrocodone/Acetaminophen [[place] 5/325 (*)] 1 tab PO Q6H PRN 08/11/17 [Last Taken 08/11/17 14:00] Lifitegrast [Xiidra] 1 drop EACHEYE BID 08/11/17 [Last Taken 08/10/17] Mycophenolate Mofetil [Cellcept 250 mg (RX)] 750 mg PO BID 08/11/17 [Last Taken 08/11/17 15:00] Pravastatin Sodium 20 mg PO HS 08/11/17 [Last Taken 08/10/17] cycloSPORINE, MODIFIED [Gengraf 25 MG (RX)] 50 mg PO BID 08/11/17 [Last Taken 15:00] predniSONE 5 mg PO DAILY 08/11/17 [Last Taken 08/11/17 15:00] Discharge Medications: Refer to the Discharge Home Medication list for PRN reason. - Orders Services needed: Home Jail Care Face to Face: I certify that this patient was under my care and that I had the required [id number] encounter meeting the encounter requirements on the discharge day. My findings support the fact that the patient is homebound as defined in Home Care Face to Face Continued: CMS Chapter 7 Medicare Benefits Manual 30.1.1 , The condition of the patient is such that there exists a normal inability to leave home and consequently, leaving home would require a considerable and taxing effort. Diet Recommendation: no restrictions on diet Diet Texture: Regular Texture Diet Wound Care Instructions: CHANGE THIGH DRESSING P.R.N. DO NOT CHANGE WOUND VAC. WE WILL CHANGE IN THE OFFICE ON WEDNESDAY - Follow Up Care Current Providers and Referrals: NONE *PRIMARY CARE P,. [Primary Care Provider] -
--- NOTE | 2017-08-14 14:54 | ASMTLACE ---
LACE Length of stay for Answers: 3 days current admission Acuity / Level of Answers: Yes Care: Did the patient have an inpatient admission? Comorbidities - select Answers: Congestive heart failure all that apply Coronary Artery Disease Opioid dependence / Chronic pain Peripheral vascular disease Other Notes: HTN, CHF, afib # of Emergency department Answers: 1-2 visits in the last 6 months Score: 17 Date Signed: 08/14/2017 02:54 PM Electronically Signed By:Elizabeth Camargo RN
--- NOTE | 2017-08-14 15:17 | ASDISCHSUM ---
Discharge Information Plan Status:Home with Home Health Medically Cleared to Leave:08/14/2017 Discharge Date:08/14/2017 01:18 PM D/C Disposition:Home Health Service [facility] D/C Disposition:Home, Routine, Self-Care Projected Discharge Date:08/15/2017 11:00 AM Transportation at D/C:Family Discharge Delay Reason: Follow-Up Date:08/15/2017 11:00 AM Discharge Slot:2 - 12:01 pm - 18:00 pm Final Diagnosis:Left leg hematoma, skin graft, wound vac Placement Information Referral Type:*Home Health Care Services Referral ID:[id number] [facility] [address] [facility] [address] Address 2: City:[place] Selection Factors:Patient/Family Choice State:[place] Patient Contact Information Contact Name:GABINO Relationship: Address:[address] [place] [address] City:[place] Alternate Phone: State/Zip Code:[place] [address] Email: Financial Information Financial Class:Medicare Primary Plan Desc:MEDICARE INPATIENT Primary Plan Number:[id number] Secondary Plan Desc:[facility] Secondary Plan Number:[id number] Assessment Information LACE LACE Length of stay for Answers: 3 days current admission Acuity / Level of Answers: Yes Care: Did the patient have an inpatient admission? Comorbidities - select Answers: Congestive heart failure all that apply Coronary Artery Disease Opioid dependence / Chronic pain Peripheral vascular disease Other Notes: HTN, CHF, afib # of Emergency department Answers: 1-2 visits in the last 6 months Score: 17 Date Signed: 08/14/2017 02:54 PM Electronically Signed By:Elizabeth Camargo RN [facility] CM Progress Note CM Note CM Note Notes: Pt is s/p a planned L martins debridement and skin graft after sustaining a martins hematoma from a fall while hiking. She has a wound vac in place and will need it for 5 days. She brought a wound vac from home and will d/c with it. Has had [facility] in the past and is agreeable to having them again. Referral sent via [employer]. Pt would like to talk to Dr Puente re her d/c - he had encouraged her to stay here with the wound vac for the 5 days. At this time, pt is not comfortable with discharging home today or tomorrow. CM will continue to follow for d/c needs. Date Signed: 08/12/2017 12:52 PM Electronically Signed By:ROSALINA Dasilva [facility] CM Progress Note CM Note CM Note Notes: Chart reviewed for dc needs. Per surgery likely here through the weekend. Call to [facility] to alert them as she is current with them for HHC. CM to follow. Plan: dc to home when medically stable. Date Signed: 08/13/2017 03:47 PM Electronically Signed By:Mgaui Kee RN Case Management Discharge Plan Note Case Management Discharge Discharge Order Complete? Answers: Yes Patient to Obtain Answers: via Family Medications Transportation Arranged Answers: Family/Friends EMTALA Complete Answers: No Notes: N/A Case Management Transport Answers: No Notes: N/A Form Complete Faxed Final Orders Answers: Yes Notes: Discharge orders sent v ia [employer] rmed receipt with Martha Agency/Facility Transfer Answers: Yes Notes: Discharge orders sent v ia Report Printed & Faxed to [employer] [employer] [facility] Receiving Agency rmed receipt with Martha Family Notified Answers: Yes Notes: at bedside Discharge Comments Notes: Per Dr. Puente, pt to discharge home with a wound vac and family support today. Met with pt and pt's to discuss discharge plan. Pt previously open with [facility] ([facility]). Pt requesting to resume home care (RN services) for assistance with graft sites. Call placed to Dr. Puente, orders received. Call placed to [facility] with [facility]. Per Martha, able to accept for resumption of services, with start of care for Wednesday08/17/17. Discharge orders sent via [employer]. Pt admitted with personal wound vac. Call placed to [facility] . Spoke with Eliud, update provided. Confirmed [facility] wound vac unit number [id number] with Eliud. Hold requested for pt's admission to the hospital 08/11/17-08/14/17. Reference number received [id number]. Per Eliud no additional paperwork necessary. Update provided to pt and pt's . business card provided with [facility] contact information. IM signed. Pt to follow up as directed. CM available for any further issues or concerns. Discharge Plan: Home with [facility] and family support Date Signed: 08/14/2017 03:15 PM Electronically Signed By:Elizabeth Camargo RN Intervention Information Intervention Type:*IM-Signed Date of Service:08/14/2017 02:55 PM Patient Type:Inpatient Staff Member:BREA Camargo, Elizabeth Hours: Discipline: Severity: Comment:
--- NOTE | 2017-08-22 15:33 | GOP ---
[f rep st] OPERATIVE REPORT DATE OF OPERATION: 08/11/2017 SURGEON: Joel Puente MD [employer] VICE PRESIDENT: CHRISTIE Clark. ANESTHESIOLOGIST: Jos Mann MD. PREOPERATIVE DIAGNOSIS: Open left leg wound from a traumatic hematoma. POSTOPERATIVE DIAGNOSIS: Open left leg wound from a traumatic hematoma. PROCEDURE PERFORMED: Left leg split debridement and split thickness skin graft with wound vacuum-ass isted closure placement. FINDINGS: The patient was found to have an excellent granulation bed and a 20 x 10 cm defect in the medial aspect of the left leg. ESTIMATED BLOOD LOSS: Negligible. DESCRIPTION OF PROCEDURE: The patient was taken to the operating room where she received satisfactor y general endotracheal anesthesia by Dr. Mann. She was placed in the supine position, prepped and d raped in the usual sterile fashion. The leg wound was debrided, and hemostasis was assured. A split -thickness skin graft was then taken from the anterior aspect of the left leg. Using a dermatome 16 angstrom split thickness graft was taken. It was meshed in a 1.5 to 1 and then placed on the open wo und and secured in place with skin álvaro. The wound was infiltrated with 0.5% Marcaine with epinep hrine, and the donor site was covered with medicated dressing. The graft site was covered with Xerof orm gauze and then covered with a wound VAC. She was taken to the recovery room in good condition. COMPLICATIONS: None. MATERIALS: The skin graft was 20 x 10. /[id number]/MODL
== END 2017-08-14 13:18 | disposition home or self-care (01) | DRG 577 ==
LOC: FSGY 09:11 → F3E 12:54
PROVIDERS: ADMIT Surgery; ATTEND Surgery
PROC: 2W1RX6Z Compression of Left Lower Leg using Pressure Dressing (ICD-10-PCS; principal; 2017-08-11 11:00)
PROC: 0HBJXZZ Excision of Left Upper Leg Skin, External Approach (ICD-10-PCS; principal; 2017-08-11 11:00)
PROC: 0HRLX74 Replacement of Left Lower Leg Skin with Autologous Tissue Substitute, Partial Thickness, External Approach (ICD-10-PCS; principal; 2017-08-11 11:00)
DX: S81.802A Unspecified open wound, left lower leg, initial encounter (principal); W19.XXXA Unspecified fall, initial encounter; I48.2 Chronic atrial fibrillation; Z79.01 Long term (current) use of anticoagulants; Z94.0 Kidney transplant status; J45.909 Unspecified asthma, uncomplicated; M32.9 Systemic lupus erythematosus, unspecified; I50.9 Heart failure, unspecified; Z95.810 Presence of automatic (implantable) cardiac defibrillator
CPT/HCPCS: 97116-GP; 97161-GP; G8978-GP-CI; G8979-GP-CI; G8980-GP-CI; J0690; J1100; J1650; J2370; J2405; J2704; J3010; J7512

== ENCOUNTER 2017-08-28 09:36 | Emergency (ER) | payer OTHER, BC ==
[2017-08-28 09:45] VITALS: BP 100/61
--- NOTE | 2017-08-28 10:23 | EDPHY ---
H & P Time Seen by Provider: 08/28/17 10:04 HPI/ROS: CHIEF COMPLAINT: Left foot pain and swelling HISTORY OF PRESENT ILLNESS: 77-year-old immunosuppressed female presents to the emergency department with pain and swelling in her left foot over last several days. The patient had a skin graft done by Dr. Sixto Puente in July. She just saw Dr. Puente in follow-up 3 days ago. She mentioned that her left foot was becoming more swollen and painful. She states initially after her skin graft was perform she was nonweightbearing and she is gradually putting more weight on it but now she is having more pain doing so. She felt feverish last night and had chills. She has not taken any medication today. She has no pain in her calf. No rash. No chest pain or difficulty breathing. ROS: Denies numbness or tingling in her toes, pain in her left knee or hip. Past Medical/Surgical History: kidney transplant, CHF, SLE, arthritis, valve repair, CAD, anemia Social History: Smoking Status: Never smoked Physical Exam: Examination of the left foot reveals obvious swelling and pedal edema to the dorsal aspect of the left foot extending up to the medial and lateral aspect of her ankle. She has pain with dorsi and plantar flexion. She has healing skin grafts to the anterior aspect of her left medial leg with an additional host site to the anterior lateral thigh. There is no obvious redness or warmth or signs of cellulitis. There is no lymphangitis. No abrasion or puncture wound noted to the left foot. She does have reproducible pain with palpation diffusely in her left foot. Constitutional: Initial Vital Signs Temperature (C) 36.6 C 08/28/17 09:42 Heart Rate 76 08/28/17 09:42 Respiratory Rate 18 08/28/17 09:42 Blood Pressure 100/61 08/28/17 09:42 O2 Sat (%) 100 08/28/17 09:42 O2 Delivery Mode Room Air Allergies/Adverse Reactions: clindamycin Allergy (Verified 08/28/17 09:40) huge red rash all over trunk ertapenem Allergy (Verified 08/28/17 09:40) severe hallucinations- hospitalized for 8 days after taking sevelamer HCl [From Renagel] Allergy (Verified 08/28/17 09:40) unknown reaction probably just didn't agree with me Tetanus Vaccines and Toxoid Allergy (Verified 08/28/17 09:40) bad localized reaction at injection site Home Medications: Medication Instructions Recorded Acetaminophen [Tylenol ES 500 mg 500 mg PO Q6 PRN 08/11/17 (*)] Aspirin [Aspirin 325 mg (*)] 325 mg PO HS 08/11/17 C/E/Zn/Cu/OM3/DHA/EPA/LUT/ZEAX 1 each PO BID AT 7AM AND 3PM 08/11/17 [Preservision Areds 2 Softgel] Calcium Carbonate 600 mg PO BID 08/11/17 Carvedilol [Coreg] 12.5 mg PO BIDMEAL 08/11/17 Cinacalcet HCl [Sensipar] 60 mg PO HS 08/11/17 Hydrocodone/Acetaminophen [Alicia 1 tab PO Q6H PRN 08/11/17 5/325 (*)] Lifitegrast [Xiidra] 1 drop EACHEYE BID 08/11/17 Mycophenolate Mofetil [Cellcept 750 mg PO BID 08/11/17 250 mg (RX)] Pravastatin Sodium 20 mg PO HS 08/11/17 cycloSPORINE, MODIFIED [Gengraf 25 50 mg PO BID 08/11/17 MG (RX)] predniSONE 5 mg PO DAILY 08/11/17 MDM/Departure - MDM Imaging Results: Imaging Impressions Foot X-Ray 08/28/17 10:19 Impression: 1. No underlying significant osseous abnormality seen left foot. 2. Soft tissue swelling about the foot as detailed above. Consider cellulitis. 3. Extensive vascular calcifications possibly from underlying diabetes. ED Course/Re-evaluation: 77-year-old female presents to the emergency department with swelling to her left foot. She had recently seen her surgeon, Dr. Sixto Puente for this 3 days ago. On examination there is no evidence of cellulitis or infection. There is no redness or warmth. No lymphangitis. She does have edema which appears to be more fluid related. The patient does report that she may have overdone and walk too much with her granddaughter recently which may have attributed to her pain and swelling. The case was discussed with Dr. Brittney Wooten, secondary supervising physician , who did not directly evaluate the patient but agrees with treatment and plan. He recommended calling Dr. Rolf Puente. I spoke with Dr. Sixto Puente'physician secretary administrative assistant, Eulalia, who felt that this patient could be seen in their office on Wednesday, in 2 days. In the meantime I encouraged the patient to elevate her leg as much as possible. I doubt this patient has a deep vein thrombosis. She has no calf pain or swelling. This appears to be isolated to her left foot. I do not see any evidence of infection. I do not think antibiotics are indicated. I did encourage her to watch the swelling. And return if she notices redness or fever or lymphangitis or any other concerns. She was comfortable with this plan. Her wounds on her left leg were redressed for her. Differential Diagnosis: Including but not limited to edema, cellulitis, osteomyelitis, fracture, sprain - Depart Disposition: Home, Routine, Self-Care Clinical Impression: Swelling of left foot Condition: Good Instructions: Swollen Joint (ED), Edema (ED) Additional Instructions: Elevate your ft and her leg as discussed. Call Dr. Joel Puente office on Wednesday and tell them that you need follow-up appointment on Wednesday to recheck. Referrals: NONE *PRIMARY CARE P,. [Primary Care Provider] - As per Instructions
== END 2017-08-28 11:38 | disposition home or self-care (01) ==
DX: M79.89 Other specified soft tissue disorders (principal); I25.10 Atherosclerotic heart disease of native coronary artery without angina pectoris; I50.9 Heart failure, unspecified; Z79.82 Long term (current) use of aspirin

== ENCOUNTER → 2017-09-02 | Outpatient (CLI) | payer OTHER, BC | LOC: FIMAGING 15:21 | PROVIDERS: ATTEND Surgery | DX: R22.42 Localized swelling, mass and lump, left lower limb (principal) ==

== ENCOUNTER 2018-04-02 10:02 | Observation (INO) | payer OTHER, BC ==
--- NOTE | 2018-04-02 11:20 | EDPHY ---
H & P Stated Complaint: L lower abdo lump. Time Seen by Provider: 04/02/18 11:19 HPI/ROS: HPI: This is a 78-year-old female who presents with Chief Complaint: Left lower abdomen lump Location: Left lower abdomen, left groin Quality: Lump Duration: Several weeks Signs and Symptoms: no fever, no nausea, no vomiting, no hematemesis, no blood in stool, no abdominal bloating, no diarrhea, no back pain, no urinary symptoms , no vaginal bleeding/discharge, no indigestion, no chest pain, no shortness of breath Timing: Worse over the last few days Severity: Moderate Context: Patient has a history of kidney transplant, CHF, pacemaker, lupus, thrombocytopenia presents with several week history of a lump in her left groin that has worsened over the last few days. Describes the pain as constant and [id number] in nature. Able to urinate and eat without difficulty. Last meal was yesterday evening around 6:00 p.m. Takes aspirin daily. Modifying Factors: None Comment: ROS: A comprehensive 10 system review of systems is otherwise negative aside from elements mentioned in the history of present illness. MEDICAL/SURGICAL/SOCIAL HISTORY: Medical/surgical history: kidney transplant, CHF, Pacemaker, SLE (lupus); arthritis; dry eye disease; CKD, valve repairs, thrombocytopenia, CAD, immunosuppression, anemia, mitral valve Social history: Nonsmoker Family history noncontributory. CONSTITUTIONAL: Elderly, petite, white female, awake and alert, no obvious distress HEENT: Atraumatic and normocephalic, PERRL, EOMI. Nares patent; no rhinorrhea; no nasal mucosal edema. Tympanic membranes clear. Oropharynx clear, no exudate and moist pink mucosa. Airway patent. No lymphadenopathy. No meningismus. Cardiovascular: Normal S1/S2, regular rate, regular rhythm, without murmur rub or gallop. PULMONARY/CHEST: Symmetrical and nontender. Clear to auscultation bilaterally. Good air movement. No accessory muscle usage. ABDOMEN: Soft, nondistended, nontender, no rebound, no guarding, no peritoneal signs, no masses or organomegaly. No CVAT. Right groin shows lump consistent with a hernia; not easily reduced. Bowel sounds heard x4 quadrants. EXTREMITIES: 2/2 pulses, strength 5/5, no deformities, no clubbing, no cyanosis or edema. NEUROLOGICAL: no focal neuro deficits. GCS 15. SKIN: Warm and dry, no erythema. no rash. Good capillary refill. Source: Patient, Old records Exam Limitations: No limitations - Personal History Current Tetanus/Diphtheria Vaccine: No Current Tetanus Diphtheria and Acellular Pertussis (TDAP): No Tetanus Vaccine Date: HAS REACTION WITH TD - Medical/Surgical History Hx Asthma: No Hx Chronic Respiratory Disease: No Hx Diabetes: No Hx Cardiac Disease: Yes Hx Renal Disease: Yes Hx Cirrhosis: No Hx Alcoholism: No Hx HIV/AIDS: No Hx Splenectomy or Spleen Trauma: No Other PMH: kidney transplant, CHF, Pacemaker, SLE (lupus); arthritis; dry eye disease; CKD, valve repairs, thrombocytopenia, CAD, immunosuppression, anemia, mitral valve. - Social History Smoking Status: Never smoked Constitutional: Initial Vital Signs Temperature (C) 37.0 C 04/02/18 10:25 Heart Rate 70 04/02/18 10:25 Respiratory Rate 16 04/02/18 10:25 Blood Pressure 98/53 L 04/02/18 10:25 O2 Sat (%) 97 04/02/18 10:25 O2 Delivery Mode Room Air Allergies/Adverse Reactions: clindamycin Allergy (Verified 04/02/18 10:24) huge red rash all over trunk ertapenem Allergy (Verified 04/02/18 10:24) severe hallucinations- hospitalized for 8 days after taking sevelamer HCl [From Renagel] Allergy (Verified 04/02/18 10:24) unknown reaction probably just didn't agree with me Tetanus Vaccines and Toxoid Allergy (Verified 04/02/18 10:24) bad localized reaction at injection site Home Medications: Medication Instructions Recorded Acetaminophen [Tylenol ES 500 mg 500 mg PO Q6 PRN 08/11/17 (*)] Aspirin [Aspirin 325 mg (*)] 325 mg PO HS 08/11/17 C/E/Zn/Cu/OM3/DHA/EPA/LUT/ZEAX 1 each PO BID AT 7AM AND 3PM 08/11/17 [Preservision Areds 2 Softgel] Calcium Carbonate 600 mg PO BID 08/11/17 Cinacalcet HCl [Sensipar] 60 mg PO HS 08/11/17 Hydrocodone/Acetaminophen [Ailey 1 tab PO Q6H PRN 08/11/17 5/325 (*)] Lifitegrast [Xiidra] 1 drop EACHEYE BID 08/11/17 Mycophenolate Mofetil [Cellcept 750 mg PO BID 08/11/17 250 mg (RX)] Pravastatin Sodium 20 mg PO HS 08/11/17 cycloSPORINE, MODIFIED [Gengraf 25 50 mg PO BID 08/11/17 MG (RX)] predniSONE 5 mg PO DAILY 08/11/17 Eliquis 04/02/18 Medical Decision Making - Diagnostics Imaging Results: Imaging Impressions Pelvis CT 04/02/18 12:52 Impression: 1. Incarcerated right inguinal hernia. There is associated bowel wall edema which may indicate vascular compromise of small bowel within the hernia sac. 2. Renal transplant. 3. Gallbladder distention and enlargement of the common duct incompletely evaluated on this study. 4. See above report for additional findings. Results called and discussed with Natalia ALONSO on 04/02/2018 at 13:58. ED Course/Re-evaluation: Vital signs reviewed and stable upon arrival. IV access, laboratory studies, i-STAT and CT pelvis ordered Will determine creatinine level before ordering contrast with the CT. Given IV morphine 2 mg and IV Zofran 4 mg Patient placed in Trendelenburg and unsuccessfully able to reduce at bedside. 1358: Called by Radiology, Dr. Hsu, who advised that CT pelvis scan with contrast shows incarcerated right inguinal hernia containing a loop of small bowel that is possibly strangulated and compromised. 1400: ED decision to consult General surgery. Spoke with Dr. Pinto who agrees to consult on the patient and provide further care. This patient was seen under the supervision of my secondary supervising physician. I evaluated care for this patient with attending. Discussed this patient with Dr. Alvarez who did not see the patient. Differential Diagnosis: Differential diagnosis includes but is not limited to hernia, incarcerated hernia, strangulated hernia, bowel obstruction. - Data Points Laboratory Results: Laboratory Results 04/02/18 12:25 04/02/18 12:25 04/02/18 04/02/18 12:25 12:25 WBC 10.68 10^3/uL H 10^3/uL (3.80-9.50) RBC 4.35 10^6/uL 10^6/uL (4.18-5.33) Hgb 12.0 g/dL L g/dL (12.6-16.3) Hct 39.3 % % (38.0-47.0) MCV 90.3 fL fL (81.5-99.8) MCH 27.6 pg L pg (27.9-34.1) MCHC 30.5 g/dL L g/dL (32.4-36.7) RDW 14.3 % % (11.5-15.2) Plt Count 159 10^3/uL 10^3/uL (150-400) MPV 9.7 fL fL (8.7-11.7) Neut % (Auto) 82.8 % H % (39.3-74.2) Lymph % (Auto) 7.6 % L % (15.0-45.0) Mcmullen % (Auto) 8.6 % % (4.5-13.0) Eos % (Auto) 0.1 % L % (0.6-7.6) Baso % (Auto) 0.5 % % (0.3-1.7) Nucleat RBC Rel Count 0.0 % % (0.0-0.2) Absolute Neuts (auto) 8.85 10^3/uL H 10^3/uL (1.70-6.50) Absolute Lymphs (auto) 0.81 10^3/uL L 10^3/uL (1.00-3.00) Absolute Monos (auto) 0.92 10^3/uL H 10^3/uL (0.30-0.80) Absolute Eos (auto) 0.01 10^3/uL L 10^3/uL (0.03-0.40) Absolute Basos (auto) 0.05 10^3/uL 10^3/uL (0.02-0.10) Absolute Nucleated RBC 0.00 10^3/uL 10^3/uL (0-0.01) Immature Gran % 0.4 % % (0.0-1.1) Immature Gran # 0.04 10^3/uL 10^3/uL (0.00-0.10) Sodium 140 mEq/L mEq/L (135-145) Potassium 3.9 mEq/L mEq/L (3.5-5.2) Chloride 113 mEq/L H mEq/L (97-110) Carbon Dioxide 19 mEq/l L mEq/l (22-31) Anion Gap 8 mEq/L mEq/L (6-14) BUN 35 mg/dL H mg/dL (7-23) Creatinine 1.2 mg/dL H mg/dL (0.6-1.0) Estimated GFR 44 Glucose 90 mg/dL mg/dL (70-100) Calcium 9.2 mg/dL mg/dL (8.5-10.4) Total Bilirubin 1.1 mg/dL mg/dL (0.1-1.4) AST 18 IU/L IU/L (14-46) ALT 24 IU/L IU/L (9-52) Alkaline Phosphatase 48 IU/L IU/L (38-126) Total Protein 6.5 g/dL g/dL (6.3-8.2) Albumin 3.7 g/dL g/dL (3.5-5.0) Medications Given: Discontinued Medications Bupivacaine HCl/Epinephrine Bitart (Bupivacaine/Epi) Confirm Administered Dose 30 ml .ROUTE .STK-MED ONE Stop: 04/02/18 15:27 Last Admin: 04/02/18 16:40 Dose: 15 ml Sodium Chloride (Ns) 1,000 mls @ 0 mls/hr IV EDNOW ONE; Wide Open PRN Reason: Protocol Stop: 04/02/18 15:08 Last Admin: 04/02/18 15:34 Dose: 1,000 mls Cefazolin Sodium/Dextrose (Ancef 1 Gm (Premix)) 50 mls @ 200 mls/hr IV ONCALL ONE PRN Reason: Protocol Stop: 04/02/18 15:47 Last Admin: 04/02/18 16:11 Dose: 50 mls Lidocaine/Epinephrine (Xylocaine 1%-Epi 1:200,000) Confirm Administered Dose 30 ml .ROUTE .STK-MED ONE Stop: 04/02/18 15:27 Last Admin: 04/02/18 16:40 Dose: 15 ml Midazolam HCl (Versed) 1 mg IVP ONCALL ONE Stop: 04/02/18 15:52 Last Admin: 04/02/18 15:54 Dose: 1 mg Morphine Sulfate (Morphine) 2 mg IVP EDNOW ONE Stop: 04/02/18 12:01 Last Admin: 04/02/18 12:26 Dose: 2 mg Ondansetron HCl (Zofran) 4 mg IVP EDNOW ONE Stop: 04/02/18 12:01 Last Admin: 04/02/18 12:26 Dose: 4 mg Departure - Departure Disposition: [facility] Inpatient Acute Clinical Impression: Incarcerated right inguinal hernia, Strangulated inguinal hernia Condition: Fair
[2018-04-02] MEDS ORDERED: ONDANSETRON 4 MG/2 ML VIAL IVP ONE (12:00)
[2018-04-02] MEDS ORDERED: ONDANSETRON 4 MG/2 ML VIAL ONE (12:08)
[2018-04-02 12:37] LABS: PLATELET COUNT 159 10^3/uL (150-400)
[2018-04-02] MEDS ORDERED: IOPAMIDOL (ISOVUE 370) 100 ML BTL IV ONE (12:55)
[2018-04-02] MEDS ORDERED: NS 1,000 ML IV ONE (15:07)
[2018-04-02] MEDS ORDERED: LIDO/EPI 1% **for epidural** 30 ML SDV ONE (15:26)
[2018-04-02] MEDS ORDERED: BUPIVACAINE/EPI 0.5% 30 ML SDV ONE (15:26)
--- NOTE | 2018-04-02 15:44 | GHP ---
DATE OF ADMISSION: 04/02/2018 REASON FOR EVALUATION: Incarcerated hernia. REQUESTING PHYSICIAN: Natalia Ramirez PA-C. HISTORY OF PRESENT ILLNESS: 78-year-old female with multiple medical problems with a multiple month history of a symptomatic right groin bulge. She developed a severe worsening pain over the last day, bringing her to the emergency room. She denies nausea or vomiting. She reports difficulty walking because of discomfort. She denies fevers or chills. She denies difficulty with voiding. PAST MEDICAL HISTORY: Coronary artery disease, lupus, chronic kidney disease. PAST SURGICAL HISTORY: Mitral valve repair, tricuspid valve repair, living- related donor renal transplant to left lower quadrant, left leg skin graft post trauma. MEDICATIONS: Tylenol, aspirin, PreserVision, calcium carbonate, Sensipar, Xiidra, CellCept, pravastatin, cyclosporine, prednisone, Eliquis (last dose earlier this morning). ALLERGIES: Clindamycin, ertapenem, sevelamer, tetanus toxoid. SOCIAL HISTORY: No alcohol. No tobacco. She is . She lives part-time [place], part-time [place]. PHYSICAL EXAMINATION: VITAL SIGNS: Temperature 37, blood pressure 138/85, pulse 73, respirations 18. GENERAL: The patient is alert, appropriate, comfortable when sitting still. HEART: Regular. LUNGS: Clear. ABDOMEN: Soft, tender, erythematous incarcerated right inguinal hernia without crepitus. EXTREMITIES: Unremarkable. NEUROLOGIC: Alert and appropriate. LABORATORY DATA: White count 11, hemoglobin 12, platelets 160. Sodium 140, potassium 3.9, chloride 113, CO2 19, BUN 35, creatinine 1.2, glucose 90. Liver enzymes within reference range. CT images were directly reviewed with on-call radiologist: 1. Obvious incarcerated right inguinal hernia with bowel and probable omentum. 2. Notable distended common bile duct. IMPRESSION: 1. Incarcerated right inguinal hernia. 2. Immunosuppressed patient, anticoagulation. PLAN: Recommend proceeding with open repair. Risks and benefits were explained to the patient and in detail. Heightened risk of bleeding was reviewed. Given her notable groin erythema and distal thickening on CT scan , urgent repair is warranted. Regarding her dilated common bile duct, further workup to be entertained at later date and time. /[id number]/MODL MTDD
[2018-04-02] MEDS ORDERED: MIDAZOLAM 2 MG/2 ML VIAL ONE (15:47)
[2018-04-02] MEDS ORDERED: MIDAZOLAM 2 MG/2 ML VIAL IVP ONE (15:51)
--- NOTE | 2018-04-02 15:51 | PDANEPAE ---
ANE Past Medical History - Cardiovascular History Hx Hypertension: Yes Hx Arrhythmias: Yes Hx Chest Pain: No Hx Coronary Artery / Peripheral Vascular Disease: Yes Hx CHF / Valvular Disease: Yes Hx Palpitations: No Cardiovascular History Comment: afib. chf. pvd. cad with failed cabg. aicd that was changed to pacer 07/2016. s/p MVR in 2017 due to MR. mvr in 2015 with naomi - Pulmonary History Hx COPD: No Hx Asthma/Reactive Airway Disease: Yes Hx Recent Upper Respiratory Infection: No Hx Oxygen in Use at Home: No Hx Sleep Apnea: No Pulmonary History Comment: hx of asthma hasn't used inhaler in a long time - Neurologic History Hx Cerebrovascular Accident: No Hx Seizures: No Hx Dementia: No - Endocrine History Hx Diabetes: No Obesity: no - Renal History Hx Renal Disorders: Yes Renal History Comment: hx of kidney transplant in 2016 no problems currently. hx of ckd since age 19 - Liver History Hx Hepatic Disorders: No - Neurological & Psychiatric Hx Hx Neurological and Psychiatric Disorders: No - Cancer History Hx Cancer: Yes Cancer History Comment: skin ca - Congenital Disorder History Hx Congenital Disorders: No - GI History Hx Gastrointestinal Disorders: Yes Gastrointestinal History Comment: constipation with narcotics. - Other Health History Other Health History: very fragile skin- lots of bruising. lupus. thrombocytopenia. hx of anemia. immunosuppression. wears glasses. macular degeneration - Chronic Pain History Chronic Pain: Yes (arthritic pain to most joints- neck is the worst) - Surgical History Prior Surgeries: left calf hematoma evacuated with Puente 07/05/17. changed out AICD to pacemaker 07/06/16. MVR 2015. cataract surgery 2012. left kidney transplant 2010- was donor. AICD 2006. ANE Review of Systems Review of Systems: - Pacemaker Date Pacemaker Last Checked: 06/29/17 ANE Patient History - Allergies Allergies/Adverse Reactions: clindamycin Allergy (Verified 04/02/18 10:24) huge red rash all over trunk ertapenem Allergy (Verified 04/02/18 10:24) severe hallucinations- hospitalized for 8 days after taking sevelamer HCl [From Renagel] Allergy (Verified 04/02/18 10:24) unknown reaction probably just didn't agree with me Tetanus Vaccines and Toxoid Allergy (Verified 04/02/18 10:24) bad localized reaction at injection site - Home Medications Home Medications: Acetaminophen [Tylenol ES 500 mg (*)] 500 mg PO Q6 PRN 08/11/17 [Last Taken 3 Days Ago ~08/08/17] Aspirin [Aspirin 325 mg (*)] 325 mg PO HS 08/11/17 [Last Taken 08/10/17] C/E/Zn/Cu/OM3/DHA/EPA/LUT/ZEAX [Preservision Areds 2 Softgel] 1 each PO BID AT 7AM AND 3PM 08/11/17 [Last Taken 08/11/17 15:00] Calcium Carbonate 600 mg PO BID 08/11/17 [Last Taken 08/11/17 15:00] Cinacalcet HCl [Sensipar] 60 mg PO HS 08/11/17 [Last Taken 08/10/17] Hydrocodone/Acetaminophen [Savannah 5/325 (*)] 1 tab PO Q6H PRN 08/11/17 [Last Taken 08/11/17 14:00] Lifitegrast [Xiidra] 1 drop EACHEYE BID 08/11/17 [Last Taken 08/10/17] Mycophenolate Mofetil [Cellcept 250 mg (RX)] 750 mg PO BID 08/11/17 [Last Taken 08/11/17 15:00] Pravastatin Sodium 20 mg PO HS 08/11/17 [Last Taken 08/10/17] cycloSPORINE, MODIFIED [Gengraf 25 MG (RX)] 50 mg PO BID 08/11/17 [Last Taken 15:00] predniSONE 5 mg PO DAILY 08/11/17 [Last Taken 08/11/17 15:00] Eliquis 04/02/18 [Last Taken Unknown] - Smoking Hx Smoking Status: Never smoked - Family Anes Hx Family Hx Anesthesia Complications: mother- n/v ANE Labs/Vital Signs - Labs Result Diagrams: 04/02/18 12:25 04/02/18 12:25 - Vital Signs Blood Pressure: 130/80 Heart Rate: 85 Respiratory Rate: 16 O2 Sat (%): 97 Height: 170.18 cm Weight: 47.627 kg ANE Physical Exam - Airway Neck exam: FROM Mallampati Score: Class 1 Mouth exam: normal dental/mouth exam - Pulmonary Pulmonary: no respiratory distress - Cardiovascular Cardiovascular: regular rate and rhythym - ASA Status ASA Status: III ANE Anesthesia Plan Anesthesia Plan: GA with mask, MAC
[2018-04-02] MEDS ORDERED: fentaNYL 100 MCG/2 ML INJ ONE (15:59)
[2018-04-02] MEDS ORDERED: PROPOFOL 200 MG/20 ML VIAL ONE (15:59)
[2018-04-02] MEDS ORDERED: HYDROCODONE/APAP 5/325 TAB PO PRN (17:33)
[2018-04-02] MEDS ORDERED: ONDANSETRON 4 MG/2 ML VIAL IVP PRN (17:33)
[2018-04-02] MEDS ORDERED: ACETAMINOPHEN 325 MG TAB PO PRN (17:33)
--- NOTE | 2018-04-02 17:33 | POSTOPPROG ---
Post Op Note Date of Operation: 04/02/18 Surgeon: Ricardo Pinto Anesthesiologist: Dequan Radford Anesthesia: IV Sedation Pre-op Diagnosis: Incarcerated inguinal hernia - right Post-op Diagnosis: Incarcerated femoral hernia - right Procedure: Incarcerated femoral hernia repair with appendectomy Findings: Incarcerated necrotic appendix Inf/Abcess present in the surg proc area at time of surgery?: Yes Depth: Organ Space EBL: Minimal Specimen(s): appendix
--- NOTE | 2018-04-02 17:51 | POSTANESTH ---
Post Anesthetic Evaluation Cardiovascular Status: Similar to Pre-Op Cond Respiratory Status: Normal, Stable Level of Consciousness/Mental Status: Can Participate in Eval Pain Control: Adequate, Prn Tx Ordered Nausea/Vomiting Control: Adequate, Prn Tx Ordered Complications Possibly Related to Anesthesia: None Noted
[2018-04-02] MEDS: APIXABAN 2.5 MG TAB PO SCH (18:30)
[2018-04-02] MEDS: MYCOPHENOLATE MOFETIL 250 MG CAP PO SCH (20:45)
[2018-04-02] MEDS: CYCLOSPORINE MODIFIED 25 MG PO SCH (20:46)
[2018-04-02] MEDS: LIFITEGRAST EACHEYE SCH (20:46)
[2018-04-02] MEDS: PRESERVISION AREDS2 FORMULA EYE VIT 1 EACH PO SCH (20:59)
[2018-04-02] MEDS ORDERED: PRAVASTATIN SODIUM 20 MG TAB PO SCH (21:00)
[2018-04-02] MEDS ORDERED: CINACALCET HCL 30 MG TAB PO SCH (21:00)
--- NOTE | 2018-04-03 04:33 | GOP ---
DATE OF OPERATION: 04/02/2018 SURGEON: Ricardo Pinto MD ANESTHESIA: MAC. ANESTHESIOLOGIST: Dr. Radford. PREOPERATIVE DIAGNOSIS: Incarcerated right inguinal hernia. POSTOPERATIVE DIAGNOSIS: Incarcerated right femoral hernia with necrotic appendix. PROCEDURE PERFORMED: Incarcerated right femoral herniorrhaphy with appendectomy. FINDINGS: Necrotic appendix. INDICATIONS: A 78-year-old female with incarcerated right inguinal hernia. She is undergoing surgical repair at this time. Risks and benefits were explained of bleeding, infection, recurrence, bowel injury, as well as others. Heightened risk of bleeding given Eliquis status was reviewed. All questions were answered. She desires to proceed. DESCRIPTION OF PROCEDURE: Monitored anesthesia was started. The right groin was infiltrated with 1% lidocaine, 0.5% Marcaine. An oblique incision was created over the palpable erythematous mass. Subcutaneous tissues were divided down to the incarcerated hernia sac. The sac was opened, disclosing some old hemorrhage with dusky viable omentum. Tucked within this was a necrotic appendix. The appendix was able to be pulled up toward the base of the cecum. The mesoappendix was divided between clamps and ties. The base of the appendix was soft, as was the cecum. This was suture ligated multiple times and amputated. The cecum was reduced back into the abdominal cavity. Satisfactory hemostasis was assured. The associated incarcerated omentum was reduced within the abdominal cavity. The defect was closed primarily without the use of mesh given the necrotic appendix in an immunocompromised patient. This was performed with multiple PDS sutures. Satisfactory hemostasis was assured. The wound was closed in layers with absorbable sutures followed by Dermabond. The patient was taken to recovery room uneventfully. /[id number]/MODL MTDD
[2018-04-03 07:29] VITALS: BP 112/70
[2018-04-03] MEDS: PRESERVISION AREDS2 FORMULA EYE VIT 1 EACH PO SCH (07:58)
[2018-04-03] MEDS: APIXABAN 2.5 MG TAB PO SCH (07:59)
[2018-04-03] MEDS: LIFITEGRAST EACHEYE SCH (07:59)
[2018-04-03] MEDS ORDERED: CARVEDILOL 25 MG TAB PO SCH (08:00)
--- NOTE | 2018-04-03 08:00 | SOAPPROG ---
SOAP Progress Note Assessment/Plan: Assessment:no c/o. pain controlled. avss. abd soft. incis with mild erythema - less than yesterday. appropriate tenderness. pod#1 s/p incarc femoral hernia repair. doing well. home today. Plan: 04/03/18 07:59 Objective: Vital Signs Temp Pulse Resp BP Pulse Ox 37.0 C 73 14 112/70 94 04/03/18 07:25 04/03/18 07:25 04/03/18 07:25 04/03/18 07:25 04/03/18 07:25 04/02/18 04/03/18 04/04/18 05:59 05:59 05:59 Intake Total 1400 Output Total 10 Balance 1390 ICD10 Worksheet Patient Problems: Problems Problem Status Onset Incarcerated right inguinal hernia Acute Strangulated inguinal hernia Acute Acute blood loss anemia Acute CAD (coronary artery disease), rosebud coronary artery Acute S/P mitral valve repair Acute S/P tricuspid valve repair Acute Thrombocytopenia Acute Valvular cardiomyopathy Acute CKD (chronic kidney disease) Chronic Chronic anticoagulation Chronic Chronic atrial fibrillation Chronic Immunosuppression Chronic
[2018-04-03] MEDS: CYCLOSPORINE MODIFIED 25 MG PO SCH (08:44)
[2018-04-03] MEDS: MYCOPHENOLATE MOFETIL 250 MG CAP PO SCH (08:45)
[2018-04-03] MEDS ORDERED: predniSONE 5 MG TAB PO SCH (09:00)
[2018-04-03] MEDS ORDERED: ASPIRIN EC 81 MG TAB PO SCH (09:00)
--- NOTE | 2018-04-03 22:33 | ASMTLACE ---
LACE Length of stay for Answers: Less than 1 day current admission Acuity / Level of Answers: No Care: Did the patient have an inpatient admission? Comorbidities - select Answers: Coronary Artery Disease all that apply Moderate or severe liver or renal disease Other Notes: Lupus, MVR, TVR, left skin graft # of Emergency department Answers: 1-2 visits in the last 6 months Score: 8 Date Signed: 04/03/2018 10:33 PM Electronically Signed By:Elizabeth Camargo RN
--- NOTE | 2018-04-03 22:36 | ASDISCHSUM ---
Discharge Information Plan Status:Home with No Needs Medically Cleared to Leave:04/02/2018 Discharge Date:04/03/2018 09:39 AM CM D/C Disposition:Home, Routine, Self-Care ADT D/C Disposition:Home, Routine, Self-Care Projected Discharge Date:04/03/2018 09:39 AM Transportation at D/C:Family Discharge Delay Reason: Follow-Up Date:04/03/2018 09:39 AM Discharge Slot:2 - 12:01 pm - 18:00 pm Final Diagnosis:Incarcerated hernia, s/p hernia repair Placement Information Patient Contact Information Contact Name:GABINO Relationship: Address:[address] City:[place] Alternate Phone: State/Zip Code:[place] [address] Email: Financial Information Financial Class:Medicare Primary Plan Desc:MEDICARE INPATIENT Primary Plan Number:[id number] Secondary Plan Desc: OUT OF [facility] Secondary Plan Number:[id number] Assessment Information LACE LACE Length of stay for Answers: Less than 1 day current admission Acuity / Level of Answers: No Care: Did the patient have an inpatient admission? Comorbidities - select Answers: Coronary Artery Disease all that apply Moderate or severe liver or renal disease Other Notes: Lupus, MVR, TVR, left skin graft # of Emergency department Answers: 1-2 visits in the last 6 months Score: 8 Date Signed: 04/03/2018 10:33 PM Electronically Signed By:Elizabeth Camargo RN [facility] Progress Note CM Note CM Note Notes: Reviewed chart. Pt admitted for an incarcerated hernia. She is s/p hernia repair. History includes CAD, lupus, CKD, MVR, TVR, left skin graft. Pt is and lives with her . Per MD, pt to discharge home independently today with family support and no identified needs. No IM/ANDREA forms signed, admission <24 hrs, not applicable. Pt to follow up as directed. CM available for any further issues or concerns. Discharge Plan: Home independently with family support Date Signed: 04/03/2018 10:35 PM Electronically Signed By:Elizabeth Camargo RN Intervention Information Intervention Type:*Incorrect Registration Date of Service:04/03/2018 10:26 AM Patient Type:Inpatient Staff Member:Merlyn James Hours: Discipline: Severity: Comment:
== END 2018-04-03 09:39 | disposition home or self-care (01) ==
LOC: INTOOBSV 15:06 → F3E 17:58
PROVIDERS: ADMIT Surgery; ATTEND Surgery
DX: K41.30 Unilateral femoral hernia, with obstruction, without gangrene, not specified as recurrent (principal); K35.80 Unspecified acute appendicitis; E86.9 Volume depletion, unspecified; R93.2 Abnormal findings on diagnostic imaging of liver and biliary tract; I50.9 Heart failure, unspecified; N18.9 Chronic kidney disease, unspecified; D63.1 Anemia in chronic kidney disease; I25.10 Atherosclerotic heart disease of native coronary artery without angina pectoris; I34.9 Nonrheumatic mitral valve disorder, unspecified; M32.9 Systemic lupus erythematosus, unspecified; I48.91 Unspecified atrial fibrillation; I73.9 Peripheral vascular disease, unspecified; Z79.01 Long term (current) use of anticoagulants; Z95.1 Presence of aortocoronary bypass graft; Z95.810 Presence of automatic (implantable) cardiac defibrillator; Z94.0 Kidney transplant status
CPT/HCPCS: 44955; 49553; 72193; 88304; 96361; 96374; 96375; 96376; 99285; G0378; J0690; J2250; J2270; J2405; J2704; J3010; J7512; Q9967

== ENCOUNTER → 2018-04-26 | Outpatient (CLI) | payer OTHER, BC | LOC: FIMAGING 10:59 | PROVIDERS: ATTEND Physician Assistant | DX: K40.40 Unilateral inguinal hernia, with gangrene, not specified as recurrent (principal); K80.20 Calculus of gallbladder without cholecystitis without obstruction; K86.2 Cyst of pancreas; N26.1 Atrophy of kidney (terminal); K76.0 Fatty (change of) liver, not elsewhere classified ==

== ENCOUNTER → 2018-04-28 | Outpatient (CLI) | payer OTHER, BC | LOC: FIMAGING 13:18 | PROVIDERS: ATTEND Surgery | DX: I51.7 Cardiomegaly (principal); R93.3 Abnormal findings on diagnostic imaging of other parts of digestive tract; R19.09 Other intra-abdominal and pelvic swelling, mass and lump; Z94.0 Kidney transplant status ==

== ENCOUNTER 2018-05-12 12:22 | Day surgery (SDC) | payer OTHER, BC ==
[2018-05-12] MEDS ORDERED: IOTHALAMATE MEG (CONRAY) 50 ML VIAL IV ONE (12:45)
[2018-05-12] MEDS ORDERED: LR 1,000 ML IV ONE (12:53)
--- NOTE | 2018-05-12 14:01 | PDANEPAE ---
ANE History of Present Illness 78 yo for ercp ANE Past Medical History - Cardiovascular History Hx Hypertension: Yes Hx Arrhythmias: Yes Hx Chest Pain: No Hx Coronary Artery / Peripheral Vascular Disease: Yes Hx CHF / Valvular Disease: Yes Hx Palpitations: No Cardiovascular History Comment: afib. chf. pvd. cad with failed cabg. aicd that was changed to pacer 07/2016. s/p MVR in 2017 due to MR. mvr in 2016 with naomi - Pulmonary History Hx COPD: No Hx Asthma/Reactive Airway Disease: Yes Hx Recent Upper Respiratory Infection: No Hx Oxygen in Use at Home: No Hx Sleep Apnea: No Sleep Apnea Screening Result - Last Documented: Negative Pulmonary History Comment: hx of asthma hasn't used inhaler in a long time - Neurologic History Hx Cerebrovascular Accident: No Hx Seizures: No Hx Dementia: No - Endocrine History Hx Diabetes: No - Renal History Hx Renal Disorders: Yes Renal History Comment: hx of kidney transplant in 2016 no problems currently. hx of ckd since age 19 - Liver History Hx Hepatic Disorders: No - Neurological & Psychiatric Hx Hx Neurological and Psychiatric Disorders: Yes Neurological / Psychiatric History Comment: LUPUS IN REMISSION - Cancer History Hx Cancer: Yes Cancer History Comment: skin ca - Congenital Disorder History Hx Congenital Disorders: No - GI History Hx Gastrointestinal Disorders: Yes Gastrointestinal History Comment: constipation with narcotics. - Other Health History Other Health History: very fragile skin- lots of bruising. lupus. thrombocytopenia. hx of anemia. immunosuppression. wears glasses. macular degeneration - Chronic Pain History Chronic Pain: Yes (arthritic pain to most joints- neck is the worst) - Surgical History Prior Surgeries: left calf hematoma evacuated with Puente 07/05/17. changed out AICD to pacemaker 07/06/16. MVR 2015. cataract surgery 2012. left kidney transplant 2010- was donor. AICD 2006. HERNIA REPAIR AND APPENDECTOMY 2019. 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 Pacemaker Mode: VVTR Date Pacemaker Last Checked: 12/28/17 ANE Patient History - Allergies Allergies/Adverse Reactions: clindamycin Allergy (Verified 05/11/18 17:15) huge red rash all over trunk ertapenem Allergy (Verified 05/11/18 17:15) severe hallucinations- hospitalized for 8 days after taking sevelamer HCl [From Renagel] Allergy (Verified 05/11/18 17:15) unknown reaction probably just didn't agree with me Tetanus Vaccines and Toxoid Allergy (Verified 05/11/18 17:15) bad localized reaction at injection site - Home Medications Home Medications: C/E/Zn/Cu/OM3/DHA/EPA/LUT/ZEAX [Preservision Areds 2 Softgel] 08/11/17 [Last Taken 05/11/18] Cinacalcet HCl [Sensipar] 08/11/17 [Last Taken 05/11/18] Lifitegrast [Xiidra] 08/11/17 [Last Taken 05/12/18] Mycophenolate Mofetil [Cellcept] 08/11/17 [Last Taken 05/12/18] Pravastatin Sodium 08/11/17 [Last Taken 05/11/18] cycloSPORINE, MODIFIED [Gengraf] 08/11/17 [Last Taken 05/12/18] predniSONE 08/11/17 [Last Taken 05/12/18] Apixaban [Eliquis] 04/02/18 [Last Taken 3 Days Ago ~05/09/18] Aspirin EC [Aspirin EC 81 mg (*)] 04/02/18 [Last Taken 2 Days Ago ~05/10/18] Carvedilol [Coreg (*)] 04/02/18 [Last Taken 05/12/18] Acetaminophen [Tylenol 325mg (*)] 05/11/18 [Last Taken Unknown] Hydrocodone/APAP 5/325 [Newton 5/325 (*)] 05/11/18 [Last Taken 1 Month Ago ~09/23] - NPO status NPO Since - Liquids (Date): 05/12/18 NPO Since - Liquids (Time): 08:00 NPO Since - Solids (Date): 05/11/18 NPO Since - Solids (Time): 19:00 - Smoking Hx Smoking Status: Never smoked - Family Anes Hx Family Hx Anesthesia Complications: mother- n/v ANE Labs/Vital Signs - Vital Signs Blood Pressure: 156/77 Heart Rate: 74 Respiratory Rate: 16 O2 Sat (%): 98 Height: 5 ft 6 in Weight: 47.627 kg ANE Physical Exam - Airway Neck exam: FROM Mallampati Score: Class 2 Mouth exam: normal dental/mouth exam - Pulmonary Pulmonary: no respiratory distress - Cardiovascular Cardiovascular: regular rate and rhythym - ASA Status ASA Status: IV ANE Anesthesia Plan Anesthesia Plan: general endotracheal anesthesia
[2018-05-12] MEDS ORDERED: REMIFENTANIL HCL 1 MG VIAL ONE (14:31)
[2018-05-12] MEDS ORDERED: PROPOFOL/EMULSION 500 MG/50 ML BOTTLE IV ONE (14:31)
[2018-05-12] MEDS ORDERED: fentaNYL 100 MCG/2 ML INJ ONE (14:31)
[2018-05-12] MEDS ORDERED: levOFLOXACIN 500 MG/DEXTROSE/100 ML BAG IV ONE (15:08)
[2018-05-12] MEDS ORDERED: levOFLOXACIN 500 MG/DEXTROSE 100 ML IV ONE (15:15)
[2018-05-12] MEDS ORDERED: ROCURONIUM 50 MG/5 ML VIAL ONE (15:56)
[2018-05-12] MEDS ORDERED: SUGAMMADEX SODIUM 200 MG/2 ML VIAL IVP ONE (15:56)
[2018-05-12] MEDS ORDERED: INDOMETHACIN 50 MG SUPP PR ONE ×2 (16:10→16:15)
[2018-05-12] MEDS ORDERED: NALOXONE HCL 0.4 MG/ML INJ IVP PRN (16:11)
--- NOTE | 2018-05-12 16:11 | PDGENHP ---
History & Physical Chief Complaint: abnl imaging History of Present Illness: 78 year old female presents for evaluation of abnormal imaging. Pertinent Past, Social, Family History: PMHx: CKD Relevant Physical Exam: HEENT: anicteric. CV: RRR +s1s2. Lungs: CTAB. Abd: soft, nt, + bs Cardiorespiratory Assessment: ASA 2
[2018-05-12] MEDS ORDERED: NS 500 ML IV SCH (16:15)
[2018-05-12 17:34] VITALS: BP 170/77
--- NOTE | 2018-05-12 19:24 | GIREPORT ---
[facility] Surgical Services - Endoscopy Department Patient Name: Baldemar Goode Procedure Date: 05/12/2018 3:28 PM Patient Type: Outpatient Attending MD/ ER Physician: Willy Bellamy MD Procedure: ERCP Indications: Abnormal abdominal CT Patient Profile: 78 year old female presents for evaluation of abnormal imaging. Providers: Willy Bellamy MD Medicines: General Anesthesia Complications: No immediate complications. Estimated blood loss: None Description of Procedure: After obtaining informed consent, the scope was passed under direct vis ion. Throughout the procedure, the patient's blood pressure, pulse, and oxyg en saturations were monitored continuously. The Duodenalscope was introduc ed through the mouth, and advanced to the duodenum and used to inject cont rast into the bile duct. The ERCP was accomplished without difficulty. The patient tolerated the procedure well. Findings: The shingle cutter film was normal. The esophagus was successfully intubated und er direct vision. The scope was advanced to a major papilla in the descend ing duodenum without detailed examination of the pharynx, larynx and associ ated structures, and upper GI tract. The upper GI tract was grossly normal. The ampulla was noted to be on the edge of a large diverticulum. A wire was passed into the biliary tree after a few attempts. The short-nosed trac tion sphincterotome was passed over the guidewire and the bile duct was then deeply cannulated. Contrast was injected. I personally interpreted the bile duct images. Ductal flow of contrast was adequate. Image quality was excellent. No biliary cystic structures were noted. Contrast extended t o the entire biliary tree. The biliary tree was swept with a 12 mm balloon starting at the bifurcation. Sludge was swept from the duct. Estimated Blood Loss: Estimated blood loss: none. Post Op Diagnosis: - The biliary tree was swept and sludge was found. - No choledochal cysts noted. - Normal biliary tree. - Diverticulum on the edge of the ampulla. Recommendation: - Discharge patient to home (with escort). - Clear liquid diet. - Continue present medications. - Thank you for allowing me to participate in the care of your patient. Attending Participation: I personally performed the entire procedure. Willy Bellamy MD Willy Bellamy MD 05/12/2018 7:23:48 PM This report has been signed electronicallyWilly Bellamy MD Number of Addenda: 0 Note Initiated On: 05/12/2018 3:28 PM [email or web address]
== END 2018-05-12 17:37 | disposition home or self-care (01) ==
LOC: FSGY 12:22
PROVIDERS: ATTEND Internal Medicine Gastroenterology
PROC: 0FC98ZZ Extirpation of Matter from Common Bile Duct, Via Natural or Artificial Opening Endoscopic (ICD-10-PCS; principal; 2018-05-12 14:00)
DX: K83.9 Disease of biliary tract, unspecified (principal)
CPT/HCPCS: J1956; J2704; J3010; Q9961

== ENCOUNTER 2018-05-13 07:32 | Inpatient (IN) | payer OTHER, BC ==
--- NOTE | 2018-05-13 07:51 | EDPHY ---
H & P Stated Complaint: endoscopy yesterday/pain all over Time Seen by Provider: 05/13/18 07:50 - Personal History Tetanus Vaccine Date: HAS REACTION WITH TD - Medical/Surgical History Hx Asthma: No Hx Chronic Respiratory Disease: No Hx Diabetes: No Hx Cardiac Disease: Yes Hx Renal Disease: Yes Hx Cirrhosis: No Hx Alcoholism: No Hx HIV/AIDS: No Hx Splenectomy or Spleen Trauma: No Other PMH: kidney transplant, CHF, Pacemaker, SLE (lupus); arthritis; dry eye disease; CKD, valve repairs, thrombocytopenia, CAD, immunosuppression, anemia, mitral valve. - Social History Smoking Status: Never smoked Constitutional: Initial Vital Signs Temperature (C) 37 C 05/13/18 07:37 Heart Rate 82 05/13/18 07:37 Respiratory Rate 18 05/13/18 07:37 Blood Pressure 141/84 H 05/13/18 07:37 O2 Sat (%) 97 05/13/18 07:37 O2 Delivery Mode Room Air Allergies/Adverse Reactions: clindamycin Allergy (Verified 05/13/18 07:35) huge red rash all over trunk ertapenem Allergy (Verified 05/13/18 07:35) severe hallucinations- hospitalized for 8 days after taking sevelamer HCl [From Renagel] Allergy (Verified 05/13/18 07:35) unknown reaction probably just didn't agree with me Tetanus Vaccines and Toxoid Allergy (Verified 05/13/18 07:35) bad localized reaction at injection site Home Medications: Medication Instructions Recorded C/E/Zn/Cu/OM3/DHA/EPA/LUT/ZEAX 08/11/17 [Preservision Areds 2 Softgel] Cinacalcet HCl [Sensipar] 08/11/17 Lifitegrast [Xiidra] 08/11/17 Mycophenolate Mofetil [Cellcept] 08/11/17 Pravastatin Sodium 08/11/17 cycloSPORINE, MODIFIED [Gengraf] 08/11/17 predniSONE 08/11/17 Apixaban [Eliquis] 04/02/18 Aspirin EC [Aspirin EC 81 mg (*)] 04/02/18 Carvedilol [Coreg (*)] 04/02/18 Acetaminophen [Tylenol 325mg (*)] 05/11/18 Medical Decision Making - Diagnostics Imaging Results: Imaging Impressions Abdomen/Pelvis CT 05/13/18 07:58 Impression: 1. Acute pancreatitis. 2. Right inguinal fluid collection consistent with hernia, previously present. Findings and recommendations discussed with Harsha Slater MD at 9:40 hours, May 13, 2018. Final report concurs with initial preliminary interpretation. Attention: This examination does not use radiographic contrast, and as such, provides only a limited evaluation of the abdomen, pelvis, and retroperitoneum. If there is further clinical suspicion for pathological conditions, a complete CT evaluation of the abdomen and pelvis utilizing intravenous, oral, and rectal contrast should be considered. Imaging: Discussed imaging studies w/ housecalls nurse Radiologist, I viewed and interpreted images myself ED Course/Re-evaluation: CHIEF COMPLAINT: Abdominal pain s/p endoscopy HISTORY OF PRESENT ILLNESS: The patient is an anticoagulated (Eliquis) 78 y/o female with a history of a kidney transplant and mitral valve repair complaining of abdominal pain s/p an upper endoscopy yesterday. The patient was seen by Dr. Bellamy, truss builder , for an upper endoscopy with a liver cyst biopsy. She was discharged home without any complications. However, this morning the patient developed upper and right abdominal pain that is radiating around her back. Due to this pain she called Dr. Bellamy, and was advised to present to the emergency department. No fever, headache, body aches, lightheadedness, chest pain, heart palpitations, shortness of breath, cough, urinary or bowel complaints, numbness, paresthesias. REVIEW OF SYSTEMS: A comprehensive 10 system review of systems is otherwise negative aside from elements mentioned in the history of present illness and medical decision making. PHYSICAL EXAM: HR, BP, O2 Sat, RR. Temp noted General Appearance: Alert, well hydrated, appropriate, and non-toxic appearing. Head: Atraumatic without scalp tenderness or obvious injury Eyes: Pupils equal, round, reactive to light and accommodation, EOMI, no trauma , no injection. Ears: Clear bilaterally, no perforation, normal landmarks Nose: Atraumatic, no rhinorrhea, clear. Throat: There is no erythema or exudates, no lesions, normal tonsils, mucus membranes moist. Neck: Supple, 2+ carotid upstroke, nontender, no lymphadenopathy. Respiratory: No retractions, no distress, no wheezes, and no accessory muscle use. Lungs are clear to auscultation bilaterally. Cardiovascular: Regular rate and rhythm, no murmurs, rubs, or gallops. Bilateral carotid, radial, dorsalis pedis, and posterior tibial pulses intact. Good capillary refill all extremities. Gastrointestinal: Diffuse abdominal tenderness to palpation with bloating. Abdomen is soft, no masses, no rebound, no guarding, no peritoneal signs. Musculoskeletal: Normal active ROM of all extremities, atraumatic. Neurological: Alert, appropriate, and interactive. The patient has normal DTRs and non-focal cranial nerves, motor, sensory, and cerebellar exam. Skin: No rashes, good turgor, no nodules on palpation. Past medical history: CHF, SLE (lupus), arthritis, CKD, thrombocytopenia, CAD, immunosuppression, anemia Past surgical history: Kidney transplant, pacemaker, mitral valve repair Family history: Social history: Family at bedside, originally from [place], retired DIAGNOSTICS/PROCEDURES/CRITICAL CARE TIME: Abdominopelvic CT: Severe pancreatitis. No signs of a perforation. DIFFERENTIAL DIAGNOSIS: The differential diagnosis for the patient's abdominal pain included but was not limited to post-procedural pancreatitis, ovarian cyst, pelvic inflammatory disease, ovarian torsion, urinary tract infection, ectopic , cholecystitis, and appendicitis. MEDICAL DECISION MAKING: The patient is an anticoagulated (Eliquis) 78 y/o female with a history of a kidney transplant and mitral valve repair presenting with right and upper abdominal pain radiating around her back s/p an upper endoscopy and liver biopsy yesterday. On exam she has diffuse abdominal tenderness and is bloated. She does not look terribly ill at this time. Labs and abdominopelvic CT ordered ; 1L IV NS, 4mg IV Zofran, and 0.5mg IV Dilaudid administered. 0931: I spoke with Dr. Hampton, radiologist, regarding patient's abdominopelvic CT. Patient has bad pancreatitis but no signs of a perforation. This pancreatitis is most likely due to the endoscopy. She will need to be admitted; I will page the hospitalist and GI. 0941: Reassessed patient and discussed laboratory and imaging studies. I have also discussed plan for admission which the patient is comfortable with. 0954: I consulted with Dr. Bellamy, truss builder, regarding this patient. He agrees to follow this patient during her admission. Patient will be given continuous fluids. 1004: I consulted with the hospitalist service, Dr. Burton accepts admission of this patient. - Data Points Laboratory Results: Laboratory Results 05/13/18 08:00 05/13/18 08:00 05/13/18 05/13/18 05/13/18 08:06 08:00 08:00 WBC 10.88 10^3/uL H 10^3/uL (3.80-9.50) RBC 4.50 10^6/uL 10^6/uL (4.18-5.33) Hgb 12.2 g/dL L g/dL (12.6-16.3) POC Hgb 13.6 gm/dL gm/dL (12.6-16.3) Hct 40.4 % % (38.0-47.0) POC Hct 40 % % (38-47) MCV 89.8 fL fL (81.5-99.8) MCH 27.1 pg L pg (27.9-34.1) MCHC 30.2 g/dL L g/dL (32.4-36.7) RDW 15.6 % H % (11.5-15.2) Plt Count 170 10^3/uL 10^3/uL (150-400) MPV 9.4 fL fL (8.7-11.7) Neut % (Auto) 87.8 % H % (39.3-74.2) Lymph % (Auto) 4.0 % L % (15.0-45.0) [place] % (Auto) 7.3 % % (4.5-13.0) Eos % (Auto) 0.2 % L % (0.6-7.6) Baso % (Auto) 0.4 % % (0.3-1.7) Nucleat RBC Rel Count 0.0 % % (0.0-0.2) Absolute Neuts (auto) 9.55 10^3/uL H 10^3/uL (1.70-6.50) Absolute Lymphs (auto) 0.44 10^3/uL L 10^3/uL (1.00-3.00) Absolute Monos (auto) 0.79 10^3/uL 10^3/uL (0.30-0.80) Absolute Eos (auto) 0.02 10^3/uL L 10^3/uL (0.03-0.40) Absolute Basos (auto) 0.04 10^3/uL 10^3/uL (0.02-0.10) Absolute Nucleated RBC 0.00 10^3/uL 10^3/uL (0-0.01) Immature Gran % 0.3 % % (0.0-1.1) Immature Gran # 0.03 10^3/uL 10^3/uL (0.00-0.10) RBC/WBC/PLT Morphology TNP Platelet Estimate TNP POC Sodium 145 mEq/L mEq/L (135-145) Sodium 141 mEq/L mEq/L (135-145) POC Potassium 3.8 mEq/L mEq/L (3.3-5.0) Potassium 3.9 mEq/L mEq/L (3.5-5.2) POC Chloride 111 mEq/L H mEq/L (97-110) Chloride 112 mEq/L H mEq/L (97-110) Carbon Dioxide 19 mEq/l L mEq/l (22-31) POC Total CO2 21 mEq/L L mEq/L (22-31) Anion Gap 10 mEq/L mEq/L (6-14) POC BUN 35 mg/dL H mg/dL (7-23) BUN 41 mg/dL H mg/dL (7-23) Creatinine 1.3 mg/dL H mg/dL (0.6-1.0) POC Creatinine 1.3 mg/dL H mg/dL (0.6-1.0) Estimated GFR 40 Glucose 58 mg/dL L mg/dL (70-100) POC Glucose 60 mg/dL L mg/dL (70-100) Calcium 9.1 mg/dL mg/dL (8.5-10.4) Total Bilirubin 2.2 mg/dL H mg/dL (0.1-1.4) Conjugated Bilirubin 1.1 mg/dL H mg/dL (0.0-0.5) Unconjugated Bilirubin 1.1 mg/dL mg/dL (0.0-1.1) AST 35 IU/L IU/L (14-46) ALT 34 IU/L IU/L (9-52) Alkaline Phosphatase 47 IU/L IU/L (38-126) Total Protein 6.5 g/dL g/dL (6.3-8.2) Albumin 3.7 g/dL g/dL (3.5-5.0) Lipase 61110 IU/L H IU/L (23-300) Medications Given: Discontinued Medications Hydromorphone HCl (Dilaudid) 0.5 mg IVP EDNOW ONE Stop: 05/13/18 07:58 Last Admin: 05/13/18 08:04 Dose: 0.5 mg Sodium Chloride (Ns) 1,000 mls @ 0 mls/hr IV EDNOW ONE; Wide Open PRN Reason: Protocol Stop: 05/13/18 07:58 Last Admin: 05/13/18 08:04 Dose: 1,000 mls Ondansetron HCl (Zofran) 4 mg IVP EDNOW ONE Stop: 05/13/18 07:58 Last Admin: 05/13/18 08:05 Dose: 4 mg Point of Care Test Results: Chemistry 05/13/18 08:06 POC Sodium 145 mEq/L mEq/L (135-145) POC Potassium 3.8 mEq/L mEq/L (3.3-5.0) POC Chloride 111 mEq/L H mEq/L (97-110) POC Total CO2 21 mEq/L L mEq/L (22-31) POC BUN 35 mg/dL H mg/dL (7-23) POC Creatinine 1.3 mg/dL H mg/dL (0.6-1.0) POC Glucose 60 mg/dL L mg/dL (70-100) ISTAT H&H 05/13/18 08:06 POC Hgb 13.6 gm/dL gm/dL (12.6-16.3) POC Hct 40 % % (38-47) Departure - Departure Disposition: [facility] Inpatient Acute Clinical Impression: Status post endoscopy Pancreatitis, acute Qualifiers: Pancreatitis type: other Acute pancreatitis complication: unspecified Qualified Code(s): K85.80 - Other acute pancreatitis without necrosis or infection Condition: Fair Referrals: NONE *PRIMARY CARE P,. [Primary Care Provider] - As per Instructions Report Scribed for: Harsha Slater Report Scribed by: Edwige Oates Date of Report: 05/13/18 Time of Report: 07:55
[2018-05-13] MEDS ORDERED: NS 1,000 ML IV ONE ×2 (07:57→09:56)
[2018-05-13] MEDS ORDERED: HYDROmorphONE/DILAUDID 2 MG/ML INJ IVP ONE (07:57)
[2018-05-13] MEDS ORDERED: ONDANSETRON 4 MG/2 ML VIAL IVP ONE (07:57)
[2018-05-13 08:10] LABS: PLATELET COUNT 170 10^3/uL (150-400)
[2018-05-13] MEDS ORDERED: ACETAMINOPHEN 325 MG TAB PO PRN (10:41)
[2018-05-13] MEDS ORDERED: ONDANSETRON 4 MG/2 ML VIAL IVP PRN (10:41)
[2018-05-13] MEDS ORDERED: HYDROmorphONE/DILAUDID 1 MG/ML INJ IVP PRN ×2 (12:16→13:57)
[2018-05-13] MEDS: D5W NS 1,000 ML IV SCH (12:28)
[2018-05-13] MEDS: predniSONE 5 MG TAB PO SCH (15:05)
[2018-05-13] MEDS: APIXABAN 2.5 MG TAB PO SCH ×2 (15:05→20:42)
[2018-05-13] MEDS: MYCOPHENOLATE MOFETIL 250 MG CAP PO SCH ×2 (15:05→21:07)
[2018-05-13] MEDS: CYCLOSPORINE MODIFIED 25 MG PO SCH ×2 (15:06→20:42)
--- NOTE | 2018-05-13 15:09 | ASMTLACE ---
JOSSIE Acuity / Level of Answers: Yes Care: Did the patient have an inpatient admission? Comorbidities - select Answers: Congestive heart failure all that apply Coronary Artery Disease Mild liver or renal disease Opioid dependence / Chronic pain # of Emergency department Answers: 1-2 visits in the last 6 months Score: 14 Date Signed: 05/13/2018 03:09 PM Electronically Signed By:Terri Saleh
--- NOTE | 2018-05-13 15:30 | GHP ---
[f rep st] HISTORY AND PHYSICAL DATE OF ADMISSION: 05/13/2018 CHIEF COMPLAINT: Pancreatitis HPI: Pleasant 78-year-old female with atrial fibrillation, chronic immunosuppression for renal transplant, presenting with progressive abdominal pain. A month ago during femoral hernia repair/appendectomy, it was to have unusual abdominal findings warranting further evaluation. She had EGD done yesterday by Dr. Bellamy. Not feeling great when sent home; had mild RUQ pain. Pain last night, sharp in RLQ radiating in bandlike distribution across her abdomen to her back. No nausea or vomiting, F/C/S. Pain was relieved with Dilaudid in the ER. CT in ER showed acute pancreatitis, lipase >14K REVIEW OF SYSTEMS: I completed a 10-point review of systems, negative except noted in the HPI. PAST MEDICAL HISTORY: Left leg wound, atrial fibrillation status post pacer, lupus, CKD baseline creatinine 1.1 to 1.3, BT, nonischemic cardiomyopathy, valvular heart disease status post MVR/TR, renal transplant, hypertension. PAST SURGICAL HISTORY: Incarcerated right femoral hernia, necrotic appendix , status post herniorrhaphy/appendectomy. 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 Attempted a 1-vessel CABG that could not be completed. Skin cancer removal. SOCIAL HISTORY: Spends half time IN [place], half time and [place]. Lives with her . Drinks occasional wine. No tobacco or illicits. FAMILY HISTORY: Dad with [place] 60s, brother with valvular heart disease. ALLERGIES: Clindamycin, ertapenem, , tetanus. HOME MEDICATIONS: Ciprofloxacin 500 mg twice daily, Tylenol, eye drops, Sensipar 60 at bedtime, Coreg 25 mg twice daily, aspirin 81 daily, Eliquis 2.5 mg twice daily, prednisone 5 mg daily, cyclosporine 25 mg twice daily, pravastatin 20, CellCept 750 twice daily. PHYSICAL EXAMINATION: VITAL SIGNS: Temperature 36.5, blood pressure 153/80, heart rate in the 80s, respiration 18, 98% on 2 L. GENERAL: Tired, but in no acute distress. HEENT: PERRLA. Mildly dry mucous membranes. CV: Regular rate and rhythm. LUNGS: Clear. ABDOMEN: Soft. Mild right upper quadrant tenderness. No rebound or guarding. LUNGS: Clear. ABDOMEN: Soft, nondistended. Positive right lower quadrant tenderness. No rebound or guarding. Positive bowel sounds. : No Joy. MUSCULOSKELETAL: 5/5 upper lower extremity strength. Palpable inguinal hernia. NEURO: 2 through 12 intact. PSYCH: Alert and oriented x3. LABS: Lipase: > 15,000, CT abd: acute pancreatitis WBC 10, NA 145, K 4.5, Fhm226, CO2 21, BUN 35, Cr 1.3 (at BL) ASSESSMENT/PLAN: 1. Acute pancreatitis: lipase 14K after EGD. Supportive care with IV fluids, IV Dilaudid p.r.n. antiemetics. Discharge once tolerating p.o. and oral opioids. 2. Chronic kidney disease. Creatinine is at baseline. Avoid nephrotoxic medications 3. Paroxysmal atrial fibrillation. Coreg, Eliquis. 4. Nonischemic cardiomyopathy, euvolemic. Continue Coreg. 5. History of renal transplant. Will continue prednisone, CellCept. 6. History of ventricular tachycardia. Pacemaker in place. DIET: N.p.o., IV fluids. DVT ppx: Eliquis DISPOSITION: Observation and admission for IV pain control and fluids. Discharge once pain better controlled and tolerating p.o. /[id number]/MODL MTDD
[2018-05-13] MEDS: CARVEDILOL 25 MG TAB PO SCH (18:07)
[2018-05-13] MEDS: HYDROmorphONE/DILAUDID 1 MG/ML INJ IVP PRN (20:41)
[2018-05-13] MEDS: PRESERVISION AREDS2 FORMULA EYE VIT 1 EACH PO SCH (20:42)
[2018-05-13] MEDS: CIPROFLOXACIN 500 MG TAB PO SCH (20:43)
[2018-05-13] MEDS: Lifitegrast [Xiidra] 1 DROP EACHEYE SCH (20:49)
--- NOTE | 2018-05-13 23:01 | SOAPPROG ---
SOAP Progress Note Assessment/Plan: Assessment: Plan: 05/13/18 09:50 A/P 1. Acute pancreatitis- post ERCP. Pancreatic enzymes elevated and CT consistent with pancreatitis. Continue pancreatic rest- NPO, IV fluids, and pain control. GI will follow. 05/14/18 07:13 Subjective: cc: Abdominal pain. Patient seen in ER. Complaining of diffuse pain. Passing gas Objective: Vital Signs Temp Pulse Resp BP Pulse Ox 36.9 C 83 16 123/81 H 92 05/13/18 19:22 05/13/18 19:22 05/13/18 19:22 05/13/18 19:22 05/13/18 19:22 05/12/18 05/13/18 05/14/18 05:59 05:59 05:59 Intake Total 1999 Balance 1999 Physical Exam - Physical Exam General Appearance: alert, mild distress EENT: No scleral icterus (R), No scleral icterus (L) Respiratory: lungs clear, normal breath sounds Cardiac/Chest: regular rate, rhythm, No edema, No diastolic murmur, No systolic murmur Abdomen: normal bowel sounds, distended, No non-tender (tender in upper abdomen) , No soft, No guarding, No rebound, No hepatomegaly, No splenomegaly Skin: normal color, warm/dry Extremities: normal inspection Neuro/Psych: normal mood/affect, oriented x 3, No abnormal supervisor [place] II-XII ICD10 Worksheet Patient Problems: Problems Problem Status Onset Valvular cardiomyopathy Acute CAD (coronary artery disease), [place] coronary artery Acute Immunosuppression Chronic Chronic atrial fibrillation Chronic Chronic anticoagulation Chronic CKD (chronic kidney disease) Chronic S/P mitral valve repair Acute S/P tricuspid valve repair Acute Acute blood loss anemia Acute Thrombocytopenia Acute Incarcerated right inguinal hernia Acute Strangulated inguinal hernia Acute Pancreatitis, acute Acute Status post endoscopy Acute
[2018-05-14] MEDS: HYDROmorphONE/DILAUDID 1 MG/ML INJ IVP PRN ×5 (01:30→21:22)
[2018-05-14] MEDS: D5W NS 1,000 ML IV SCH (01:33)
[2018-05-14] MEDS: CIPROFLOXACIN 500 MG TAB PO SCH ×3 (08:20→21:32)
[2018-05-14] MEDS: APIXABAN 2.5 MG TAB PO SCH ×2 (08:20→21:30)
[2018-05-14] MEDS: CARVEDILOL 25 MG TAB PO SCH ×2 (08:20→21:29)
[2018-05-14] MEDS: predniSONE 5 MG TAB PO SCH (08:20)
[2018-05-14] MEDS: CYCLOSPORINE MODIFIED 25 MG PO SCH ×2 (08:20→21:29)
[2018-05-14] MEDS: PRESERVISION AREDS2 FORMULA EYE VIT 1 EACH PO SCH ×2 (08:22→21:32)
[2018-05-14] MEDS: MYCOPHENOLATE MOFETIL 250 MG CAP PO SCH ×2 (09:28→21:30)
[2018-05-14] MEDS: Lifitegrast [Xiidra] 1 DROP EACHEYE SCH ×2 (09:28→21:31)
[2018-05-14] MEDS: D5W 1/2 NS W/ 20 KCl/L 1,000 ML IV SCH (09:33)
--- NOTE | 2018-05-14 10:01 | SOAPPROG ---
SANDRA Progress Note Assessment/Plan: Assessment:Plan: first time I am seeing patient 1) pancreatitis - still with some pain, no n/v, lfts nml bili decreased, will try clears 2) lipase - pending - expect it to be lower today continue conservative tx optimistic she will improve quickly will follow Subjective: cc- pancreatitis c/o back pain- about the same as yesterday by her report no n/v no f/c/s Objective: Vital Signs Temp Pulse Resp BP Pulse Ox 36.7 C 78 16 128/66 H 95 05/14/18 07:58 05/14/18 07:58 05/14/18 07:58 05/14/18 07:58 05/14/18 07:58 Laboratory Results 05/14/18 04:50 05/13/18 05/14/18 05/15/18 05:59 05:59 06:59 Intake Total 1999 Balance 1999 A+Ox3 CTA S1S2, RRR +BS decreased freq, nml pitch, soft mild tenderness no r/g Laboratory Tests 05/13/18 05/14/18 08:00 04:50 Total Bilirubin 2.2 H 1.1 Conjugated Bilirubin 1.1 H 0.6 H AST 35 26 ALT 34 30 Alkaline Phosphatase 47 42 ICD10 Worksheet Patient Problems: Problems Problem Status Onset Pancreatitis, acute Acute Status post endoscopy Acute Acute blood loss anemia Acute CAD (coronary artery disease), [place] coronary artery Acute Incarcerated right inguinal hernia Acute S/P mitral valve repair Acute S/P tricuspid valve repair Acute Strangulated inguinal hernia Acute Thrombocytopenia Acute Valvular cardiomyopathy Acute CKD (chronic kidney disease) Chronic Chronic anticoagulation Chronic Chronic atrial fibrillation Chronic Immunosuppression Chronic
--- NOTE | 2018-05-14 11:42 | HOSPPROG ---
Hospitalist Progress Note Assessment/Plan: Pancreatitis - occurred after EGD. She is slightly improved clinically today, tolerating sips of clears -cont supportive care: IVF's, pain control CKD s/p renal transplant - cont Prednisone, Cellcept Paroxysmal A fib - rate controlled on Coreg. CVA pplx with Eliquis. NICM - cont coreg H/O V tac Full code Dispo - cont inpt, ADD likely in 1-2 days depending on clinical course Subjective: Pt feels a little better today. Less pain. No N/V. No fevers. Tolerating sips of clears. Objective: Vital Signs Temp Pulse Resp BP Pulse Ox 36.7 C 78 16 128/66 H 95 05/14/18 07:58 05/14/18 07:58 05/14/18 07:58 05/14/18 07:58 05/14/18 07:58 Laboratory Results 05/14/18 04:50 05/13/18 05/14/18 05/15/18 05:59 05:59 06:59 Intake Total 1999 Balance 1999 - Physical Exam Constitutional: no apparent distress Eyes: PERRL Ears, Nose, Mouth, Throat: moist mucous membranes Cardiovascular: regular rate and rhythym Respiratory: no respiratory distress, clear to auscultation Gastrointestinal: normoactive bowel sounds, other (soft, mild distention, mild TTP, no r/r/g) Skin: warm Musculoskeletal: full muscle strength Neurologic: AAOx3 Psychiatric: interacting appropriately ICD10 Worksheet Patient Problems: Problems Problem Status Onset Pancreatitis, acute Acute Status post endoscopy Acute Acute blood loss anemia Acute CAD (coronary artery disease), [place] coronary artery Acute Incarcerated right inguinal hernia Acute S/P mitral valve repair Acute S/P tricuspid valve repair Acute Strangulated inguinal hernia Acute Thrombocytopenia Acute Valvular cardiomyopathy Acute CKD (chronic kidney disease) Chronic Chronic anticoagulation Chronic Chronic atrial fibrillation Chronic Immunosuppression Chronic
--- NOTE | 2018-05-14 12:45 | PDMN ---
Medical Necessity Medical necessity: Change to IP, as of 05/14/18, per MD & MCG M-250; los >2 mn for ongoing management of pancreatitis s/p EGD; requiring further monitoring, IVFs, pain management & supportive care; hx CKD s/p renal transplant, AFIB
--- NOTE | 2018-05-14 16:47 | ASMTCMCOM ---
CM Note CM Note Notes: Pt admitted for post procedure pancreatitis after EGD. Pt has CKD s/p kidney transplant and has A fib and history of V Tach. Discharge likely in 1 - 2 days. No therapies ordered. Pt lives with in [place] and expects she will be independent upon discharge. CM to follow. D/c Plan: Independent with support from . Date Signed: 05/14/2018 04:47 PM Electronically Signed By:Ksenia Bryant
[2018-05-14] MEDS: oxyCODONE IR 5 MG TAB PO PRN (23:52)
[2018-05-15] MEDS: oxyCODONE IR 5 MG TAB PO PRN ×3 (04:29→16:03)
[2018-05-15 05:21] LABS: PLATELET COUNT 125 10^3/uL (150-400)
[2018-05-15] MEDS: MYCOPHENOLATE MOFETIL 250 MG CAP PO SCH ×2 (09:12→21:19)
[2018-05-15] MEDS: CARVEDILOL 25 MG TAB PO SCH ×2 (09:13→17:49)
[2018-05-15] MEDS: predniSONE 5 MG TAB PO SCH (09:13)
[2018-05-15] MEDS: CYCLOSPORINE MODIFIED 25 MG PO SCH ×2 (09:13→21:19)
[2018-05-15] MEDS: APIXABAN 2.5 MG TAB PO SCH ×2 (09:13→21:18)
[2018-05-15] MEDS: Lifitegrast [Xiidra] 1 DROP EACHEYE SCH ×2 (11:59→21:20)
[2018-05-15] MEDS: PRESERVISION AREDS2 FORMULA EYE VIT 1 EACH PO SCH ×2 (11:59→21:20)
[2018-05-15] MEDS: CIPROFLOXACIN 500 MG TAB PO SCH (11:59)
--- NOTE | 2018-05-15 14:03 | SOAPPROG ---
SANDRA Progress Note Assessment/Plan: Assessment:Plan: first time I am seeing patient 1) pancreatitis - still with some pain, no n/v, lfts nml bili decreased, will try clears 2) lipase - pending - expect it to be lower today continue conservative tx optimistic she will improve quickly will follow 05/15/18 14:01 as above 1) pancreatitis - lipase down, exam improved, still with pain and not eating much yet 2) lipase - normal today 3) diet - ADAT to low fat 4) dispo - prob home tomorrow Subjective: CC- pancreatitis still with pain, thinks new pain meds works better likes cliff khushi otherwise hasn't eaten much Objective: Vital Signs Temp Pulse Resp BP Pulse Ox 36.7 C 81 16 127/73 H 90 L 05/15/18 11:30 05/15/18 11:30 05/15/18 11:30 05/15/18 11:30 05/15/18 11:30 Laboratory Results 05/15/18 04:36 05/15/18 04:36 05/14/18 05/15/18 05/16/18 04:59 05:59 05:59 Intake Total Balance A+Ox3 CTA S1S2 +BS, soft tepi tenderness no r/g Laboratory Tests 05/13/18 05/14/18 05/14/18 08:00 04:50 04:50 Total Bilirubin 1.1 AST 26 ALT 30 Alkaline Phosphatase 42 Lipase 61403 H 2008 H 05/15/18 04:36 Total Bilirubin AST ALT Alkaline Phosphatase Lipase 272 ICD10 Worksheet Patient Problems: Problems Problem Status Onset Pancreatitis, acute Acute Status post endoscopy Acute Acute blood loss anemia Acute CAD (coronary artery disease), [place] coronary artery Acute Incarcerated right inguinal hernia Acute S/P mitral valve repair Acute S/P tricuspid valve repair Acute Strangulated inguinal hernia Acute Thrombocytopenia Acute Valvular cardiomyopathy Acute CKD (chronic kidney disease) Chronic Chronic anticoagulation Chronic Chronic atrial fibrillation Chronic Immunosuppression Chronic
--- NOTE | 2018-05-15 15:01 | HOSPPROG ---
Hospitalist Progress Note Assessment/Plan: Pancreatitis - occurred after EGD. Continues to improve, still not tolerating regular diet, but pain decreased. Discussed with Dr. Basurto. -cont supportive care: IVF's, pain control -advance diet as tolerated CKD s/p renal transplant - cont Prednisone, Cellcept Paroxysmal A fib - rate controlled on Coreg. CVA pplx with Eliquis. NICM - cont coreg H/O V tac Full code Dispo - cont inpt, d/c in am if tolerates regular diet Subjective: Pt feels better. Pain decreased. Tolerating clears, hasn't eaten solids yet. No fevers. No N/V. Objective: Vital Signs Temp Pulse Resp BP Pulse Ox 36.7 C 81 16 127/73 H 90 L 05/15/18 11:30 05/15/18 11:30 05/15/18 11:30 05/15/18 11:30 05/15/18 11:30 Laboratory Results 05/15/18 04:36 05/15/18 04:36 05/14/18 05/15/18 05/16/18 04:59 05:59 05:59 Intake Total Balance - Physical Exam Constitutional: no apparent distress Eyes: PERRL Ears, Nose, Mouth, Throat: moist mucous membranes Cardiovascular: regular rate and rhythym Respiratory: no respiratory distress, clear to auscultation Gastrointestinal: normoactive bowel sounds, soft, non-tender abdomen Skin: warm Musculoskeletal: full muscle strength Neurologic: AAOx3 Psychiatric: interacting appropriately ICD10 Worksheet Patient Problems: Problems Problem Status Onset Pancreatitis, acute Acute Status post endoscopy Acute Acute blood loss anemia Acute CAD (coronary artery disease), [place] coronary artery Acute Incarcerated right inguinal hernia Acute S/P mitral valve repair Acute S/P tricuspid valve repair Acute Strangulated inguinal hernia Acute Thrombocytopenia Acute Valvular cardiomyopathy Acute CKD (chronic kidney disease) Chronic Chronic anticoagulation Chronic Chronic atrial fibrillation Chronic Immunosuppression Chronic
[2018-05-15] MEDS: D5W 1/2 NS W/ 20 KCl/L 1,000 ML IV SCH (16:05)
[2018-05-15] MEDS: ONDANSETRON DISINTEGRATING 4 MG TAB PO PRN (20:52)
[2018-05-16] MEDS: oxyCODONE IR 5 MG TAB PO PRN ×4 (00:26→19:10)
[2018-05-16] MEDS: ONDANSETRON DISINTEGRATING 4 MG TAB PO PRN (03:42)
[2018-05-16] MEDS: PRESERVISION AREDS2 FORMULA EYE VIT 1 EACH PO SCH ×2 (07:55→22:36)
[2018-05-16] MEDS: CARVEDILOL 25 MG TAB PO SCH ×2 (07:56→17:37)
[2018-05-16] MEDS: MYCOPHENOLATE MOFETIL 250 MG CAP PO SCH ×2 (07:56→20:55)
[2018-05-16] MEDS: predniSONE 5 MG TAB PO SCH (07:57)
[2018-05-16] MEDS: CYCLOSPORINE MODIFIED 25 MG PO SCH ×2 (07:57→20:55)
[2018-05-16] MEDS: APIXABAN 2.5 MG TAB PO SCH ×2 (07:57→20:55)
[2018-05-16] MEDS: Lifitegrast [Xiidra] 1 DROP EACHEYE SCH ×2 (09:53→22:49)
--- NOTE | 2018-05-16 10:23 | HOSPPROG ---
Hospitalist Progress Note Assessment/Plan: Pancreatitis - occurred after EGD. Continues to improve, still not tolerating regular diet, but pain decreased. -cont supportive care: pain control -advance diet as tolerated CKD s/p renal transplant - cont Prednisone, Cellcept Paroxysmal A fib - rate controlled on Coreg. CVA pplx with Eliquis. NICM - cont coreg H/O V tac Full code Dispo - cont inpt, d/c in am if tolerates regular diet Subjective: Pt feels ok, still having some pain. No vomiting, but nauseous. Tolerating clears, little intake of solid food. No fevers. Objective: Vital Signs Temp Pulse Resp BP Pulse Ox 36.6 C 77 16 126/70 H 92 05/16/18 07:31 05/16/18 07:31 05/16/18 07:31 05/16/18 07:31 05/16/18 07:31 Laboratory Results 05/15/18 04:36 05/15/18 04:36 05/15/18 05/16/18 05/17/18 05:59 05:59 05:59 Intake Total Balance - Physical Exam Constitutional: no apparent distress Eyes: PERRL Ears, Nose, Mouth, Throat: moist mucous membranes Cardiovascular: regular rate and rhythym Respiratory: no respiratory distress Gastrointestinal: normoactive bowel sounds, soft, non-tender abdomen Skin: warm Musculoskeletal: full muscle strength Neurologic: AAOx3 Psychiatric: interacting appropriately ICD10 Worksheet Patient Problems: Problems Problem Status Onset Pancreatitis, acute Acute Status post endoscopy Acute Acute blood loss anemia Acute CAD (coronary artery disease), [place] coronary artery Acute Incarcerated right inguinal hernia Acute S/P mitral valve repair Acute S/P tricuspid valve repair Acute Strangulated inguinal hernia Acute Thrombocytopenia Acute Valvular cardiomyopathy Acute CKD (chronic kidney disease) Chronic Chronic anticoagulation Chronic Chronic atrial fibrillation Chronic Immunosuppression Chronic
--- NOTE | 2018-05-16 12:10 | SOAPPROG ---
SANDRA Progress Note Assessment/Plan: Assessment:Plan: first time I am seeing patient 1) pancreatitis - still with some pain, no n/v, lfts nml bili decreased, will try clears 2) lipase - pending - expect it to be lower today continue conservative tx optimistic she will improve quickly will follow 05/15/18 14:01 as above 1) pancreatitis - lipase down, exam improved, still with pain and not eating much yet 2) lipase - normal today 3) diet - ADAT to low fat 4) dispo - prob home tomorrow 05/16/18 12:07 as above 1) pancreatitis - nml lipase, no sig pain but still not great PO intake 2) diet - adat, encourage more PO intake 3) dispo - pt doesn't want to go home today so prob home in am will follow Subjective: CC- pancreatitis better but still poor appetite and poor po intake Objective: Vital Signs Temp Pulse Resp BP Pulse Ox 36.6 C 77 16 126/70 H 92 05/16/18 07:31 05/16/18 07:31 05/16/18 07:31 05/16/18 07:31 05/16/18 07:31 Laboratory Results 05/15/18 04:36 05/15/18 04:36 05/15/18 05/16/18 05/17/18 05:59 05:59 05:59 Intake Total Balance A+Ox3 CTA S1S2 +BS, soft nt ICD10 Worksheet Patient Problems: Problems Problem Status Onset Pancreatitis, acute Acute Status post endoscopy Acute Acute blood loss anemia Acute CAD (coronary artery disease), [place] coronary artery Acute Incarcerated right inguinal hernia Acute S/P mitral valve repair Acute S/P tricuspid valve repair Acute Strangulated inguinal hernia Acute Thrombocytopenia Acute Valvular cardiomyopathy Acute CKD (chronic kidney disease) Chronic Chronic anticoagulation Chronic Chronic atrial fibrillation Chronic Immunosuppression Chronic
[2018-05-17] MEDS: oxyCODONE IR 5 MG TAB PO PRN (01:22)
[2018-05-17] MEDS: HYDROmorphONE/DILAUDID 1 MG/ML INJ IVP PRN ×3 (06:34→22:13)
--- NOTE | 2018-05-17 08:33 | HOSPPROG ---
Hospitalist Progress Note Assessment/Plan: Pancreatitis - post-ERCP 05/12 (performed due to abnormal imaging). Lipase normalized, but still has significant pain requiring IV dilaudid, abdominal distention and not tolerating regular diet. -cbc and abd xray this am - looks c/w ileus -pain control, encourage ambulation -advance diet as tolerated S/P right inguinal hernia repair with necrotic appendix - 6 weeks post-op, ongoing distention and pain, unclear if pain is still related to pancreatitis with normal lipase. Prior CT's reviewed (non-contrast) showed RLQ fluid collection and abnormal GB, ERCP relatively unremarkable, some sludge removed from biliary tree. -check abd plain film as above -low threshold for CT abd/pelvis if not improving CKD s/p renal transplant - cont Prednisone, Cellcept Paroxysmal A fib - rate controlled on Coreg. CVA pplx with Eliquis. NICM - cont coreg H/O V tac Full code Dispo - cont inpt for ongoing abdominal pain, distention and inability to take adequate po Subjective: Pt continues to have pain, unable to eat, just no appetite. She is taking sips of clear liquids and some protein shakes. Still c/o abdominal pain and distention. No vomiting, but remains nauseous. She had an abdominal hernia repaired [address] Pinto. Hasn't felt very well since then. No fevers. Objective: Vital Signs Temp Pulse Resp BP Pulse Ox 36.7 C 87 18 139/80 H 90 L 05/17/18 07:56 05/17/18 07:56 05/17/18 07:56 05/17/18 07:56 05/17/18 07:56 Laboratory Results 05/15/18 04:36 05/17/18 06:20 05/16/18 05/17/18 05/18/18 05:59 05:59 05:59 Intake Total 500 Balance 500 - Physical Exam Constitutional: no apparent distress Eyes: PERRL Ears, Nose, Mouth, Throat: moist mucous membranes Cardiovascular: regular rate and rhythym Respiratory: no respiratory distress, clear to auscultation Gastrointestinal: other (moderate distention, +TTP, no r/r/g) Skin: warm Musculoskeletal: full muscle strength Neurologic: AAOx3 Psychiatric: interacting appropriately ICD10 Worksheet Patient Problems: Problems Problem Status Onset Pancreatitis, acute Acute Status post endoscopy Acute Acute blood loss anemia Acute CAD (coronary artery disease), [place] coronary artery Acute Incarcerated right inguinal hernia Acute S/P mitral valve repair Acute S/P tricuspid valve repair Acute Strangulated inguinal hernia Acute Thrombocytopenia Acute Valvular cardiomyopathy Acute CKD (chronic kidney disease) Chronic Chronic anticoagulation Chronic Chronic atrial fibrillation Chronic Immunosuppression Chronic
[2018-05-17] MEDS: MYCOPHENOLATE MOFETIL 250 MG CAP PO SCH ×2 (08:46→20:21)
[2018-05-17] MEDS: APIXABAN 2.5 MG TAB PO SCH ×2 (08:46→20:27)
[2018-05-17] MEDS: CYCLOSPORINE MODIFIED 25 MG PO SCH ×2 (08:46→20:20)
[2018-05-17] MEDS: predniSONE 5 MG TAB PO SCH (08:46)
[2018-05-17] MEDS: CARVEDILOL 25 MG TAB PO SCH ×2 (08:46→17:54)
[2018-05-17] MEDS: DOCUSATE SODIUM 100 MG CAP PO SCH ×2 (08:46→20:21)
[2018-05-17] MEDS: PRESERVISION AREDS2 FORMULA EYE VIT 1 EACH PO SCH ×2 (08:47→20:21)
[2018-05-17 08:49] LABS: PLATELET COUNT 131 10^3/uL (150-400)
[2018-05-17] MEDS: Lifitegrast [Xiidra] 1 DROP EACHEYE SCH ×2 (08:49→20:22)
--- NOTE | 2018-05-17 10:42 | SOAPPROG ---
SOAP Progress Note Assessment/Plan: Assessment:Plan: 05/15/18 14:01 as above 1) pancreatitis - lipase down, exam improved, still with pain and not eating much yet 2) lipase - normal today 3) diet - ADAT to low fat 4) dispo - prob home tomorrow 05/16/18 12:07 as above 1) pancreatitis - nml lipase, no sig pain but still not great PO intake 2) diet - adat, encourage more PO intake 3) dispo - pt doesn't want to go home today so prob home in am will follow 05/17/18 10:39 as above 1) Ileus - i think her sx's now are from her ileus noted on AXR today, I 2) pancreatitis - I think this is resolved 3) lytes - check Mag, Phos -- potassium is fine will follow Subjective: CC- abdo pain, ileus She c/o fullness across top of abdo and has benign exam with nml lipase axr shows ilues which I think is causing her current sx's Objective: Vital Signs Temp Pulse Resp BP Pulse Ox 36.7 C 87 18 139/80 H 90 L 05/17/18 07:56 05/17/18 07:56 05/17/18 07:56 05/17/18 07:56 05/17/18 07:56 Laboratory Results 05/17/18 08:40 05/17/18 06:20 05/16/18 05/17/18 05/18/18 05:59 05:59 05:59 Intake Total 500 Balance 500 A+Ox3 CTA S1S2, RRR +BS, decreased, soft minimal tenderness to deep palpation ICD10 Worksheet Patient Problems: Problems Problem Status Onset Pancreatitis, acute Acute Status post endoscopy Acute Acute blood loss anemia Acute CAD (coronary artery disease), [place] coronary artery Acute Incarcerated right inguinal hernia Acute S/P mitral valve repair Acute S/P tricuspid valve repair Acute Strangulated inguinal hernia Acute Thrombocytopenia Acute Valvular cardiomyopathy Acute CKD (chronic kidney disease) Chronic Chronic anticoagulation Chronic Chronic atrial fibrillation Chronic Immunosuppression Chronic
[2018-05-17] MEDS ORDERED: PROTOCOL K PHOSPHATE 1 DOSE IV PRN (16:06)
--- NOTE | 2018-05-17 16:14 | ASMTCMCOM ---
CM Note CM Note Notes: Spoke with pt's RN, pt sleeping when CM approached. Pt still planning to discharge independently, likely tomorrow or . No therapies ordered. CM to follow. D/C Plan: Independent with support from . Date Signed: 05/17/2018 04:14 PM Electronically Signed By:Ksenia Bryant
[2018-05-17] MEDS: K PHOS 10 MMOL in D5W 250 ML IV ONE ×2 (18:01→18:02)
--- NOTE | 2018-05-17 18:27 | SOAPPROG ---
SOAP Progress Note Assessment/Plan: Assessment:patient known to me - s/p ERCP with postop pancreatitis. requested by medical service to assess abdominal status. pain slowly improving. no current nausea. +flatus. afebrile. comfortable. abd dist, soft. post ERCP pancreatitis - no concern for necrotizing pancreatitis. recommend continued supportive care. diet when able. no further workup necessary at this time. care reccs and plan reviewed with patient and Dr. Hernandez. Plan: 05/17/18 18:25 Objective: Vital Signs Temp Pulse Resp BP Pulse Ox 36.8 C 71 18 125/71 H 90 L 05/17/18 15:59 05/17/18 15:59 05/17/18 15:59 05/17/18 15:59 05/17/18 15:59 Laboratory Results 05/17/18 08:40 05/17/18 06:20 05/16/18 05/17/18 05/18/18 05:59 05:59 05:59 Intake Total 500 Balance 500 ICD10 Worksheet Patient Problems: Problems Problem Status Onset Pancreatitis, acute Acute Status post endoscopy Acute Acute blood loss anemia Acute CAD (coronary artery disease), [place] coronary artery Acute Incarcerated right inguinal hernia Acute S/P mitral valve repair Acute S/P tricuspid valve repair Acute Strangulated inguinal hernia Acute Thrombocytopenia Acute Valvular cardiomyopathy Acute CKD (chronic kidney disease) Chronic Chronic anticoagulation Chronic Chronic atrial fibrillation Chronic Immunosuppression Chronic
[2018-05-18] MEDS: oxyCODONE IR 5 MG TAB PO PRN (00:47)
[2018-05-18] MEDS: HYDROmorphONE/DILAUDID 1 MG/ML INJ IVP PRN ×2 (02:39→07:15)
[2018-05-18] MEDS: CARVEDILOL 25 MG TAB PO SCH ×2 (08:55→18:00)
[2018-05-18] MEDS: MYCOPHENOLATE MOFETIL 250 MG CAP PO SCH ×2 (08:55→20:33)
[2018-05-18] MEDS: predniSONE 5 MG TAB PO SCH (08:55)
[2018-05-18] MEDS: PRESERVISION AREDS2 FORMULA EYE VIT 1 EACH PO SCH ×2 (08:55→20:33)
[2018-05-18] MEDS: DOCUSATE SODIUM 100 MG CAP PO SCH ×2 (08:55→20:33)
[2018-05-18] MEDS: APIXABAN 2.5 MG TAB PO SCH ×2 (08:55→20:33)
[2018-05-18] MEDS: CYCLOSPORINE MODIFIED 25 MG PO SCH ×2 (08:56→20:33)
[2018-05-18] MEDS ORDERED: BISACODYL 10 MG SUPP PR PRN (09:39)
[2018-05-18] MEDS ORDERED: LACTULOSE 20 GM/30 ML UDCUP PO PRN (09:39)
[2018-05-18] MEDS ORDERED: traMADol 50 MG TAB PO PRN (09:41)
--- NOTE | 2018-05-18 10:23 | HOSPPROG ---
Hospitalist Progress Note Assessment/Plan: Pancreatitis - post-ERCP 05/12 (performed due to abnormal imaging) -cbc and abd xray c/w ileus -pain control, encourage ambulation -bowel protocol as no BM since admission -advance diet as tolerated S/P right inguinal hernia repair with necrotic appendix - 6 weeks post-op -Prior CT's reviewed (non-contrast) showed RLQ fluid collection and abnormal GB, ERCP relatively unremarkable, some sludge removed from biliary tree. -appreciate surgery eval -low threshold for repeat imaging if not improving CKD s/p renal transplant - cont Prednisone, Cellcept Paroxysmal A fib with hx v tach - rate controlled on Coreg, takes Eliquis. Cardiomyopathy- cont coreg Severe Protein Calorie Malnutrition-has lost weight over last several months with surgery/post op recovery -appreciate nutrition/coal bagger recommendations -suggest outpt coal bagger (veronica consider) Full code NO LOCAL PCP- OK to FU with me in office if desired Dispo -likely DC in AM if pain OK, and able to eat/stay hydrated orally Subjective: feelling much better Objective: Vital Signs Temp Pulse Resp BP Pulse Ox 98.1 F 74 18 151/96 H 95 05/18/18 07:14 05/18/18 07:14 05/18/18 07:14 05/18/18 07:14 05/18/18 07:14 Laboratory Results 05/17/18 08:40 05/16/18 05/17/18 05/18/18 11:59 11:59 11:59 Intake Total 500 1200 Balance 500 1200 - Time Spent With Patient Time Spent with Patient: greater than 35 minutes Time Spent with Patient: Greater than 35 minutes spent on this patients care, greater than 50% of time spent counseling, educating, and coordinating care regarding the above mentioned plan. - Pending Discharge Pending Discharge Within 24 Hours: Yes Pending Discharge Date: 06/25/18 Pending Discharge Time: 11:00 - Physical Exam Constitutional: no apparent distress, other (thin) Eyes: anicteric sclera Ears, Nose, Mouth, Throat: moist mucous membranes Cardiovascular: regular rate and rhythym Respiratory: no respiratory distress Gastrointestinal: normoactive bowel sounds, tenderness (mild, throughout), other (no rebound/guarding) Skin: warm Psychiatric: interacting appropriately, not anxious, not encephalopathic ICD10 Worksheet Patient Problems: Problems Problem Status Onset Acute blood loss anemia Acute CAD (coronary artery disease), [place] coronary artery Acute Incarcerated right inguinal hernia Acute Pancreatitis, acute Acute S/P mitral valve repair Acute S/P tricuspid valve repair Acute Status post endoscopy Acute Strangulated inguinal hernia Acute Thrombocytopenia Acute Valvular cardiomyopathy Acute CKD (chronic kidney disease) Chronic Chronic anticoagulation Chronic Chronic atrial fibrillation Chronic Immunosuppression Chronic
[2018-05-18] MEDS: POLYETHYLENE GLYCOL 3350 17 GM PKT PO SCH (10:40)
[2018-05-18] MEDS: ACETAMINOPHEN 325 MG TAB PO SCH ×4 (10:42→21:45)
[2018-05-18] MEDS: Lifitegrast [Xiidra] 1 DROP EACHEYE SCH ×2 (10:43→20:33)
[2018-05-18] MEDS: MAGNESIUM HYDROXIDE 30 ML UDCUP PO SCH ×2 (12:00→20:33)
[2018-05-18] MEDS: FAMOTIDINE 20 MG TAB PO SCH (12:48)
[2018-05-18] MEDS ORDERED: K PHOS 10 MMOL in D5W 250 ML IV ONE (17:00)
[2018-05-18] MEDS ORDERED: CEPACOL LOZENGE PO PRN (18:18)
[2018-05-18] MEDS: SENNOSIDES/DOCUSATE SODIUM TAB PO SCH (20:33)
[2018-05-19] MEDS: ACETAMINOPHEN 325 MG TAB PO SCH ×6 (02:10→21:34)
[2018-05-19] MEDS: SENNOSIDES/DOCUSATE SODIUM TAB PO SCH (08:16)
[2018-05-19] MEDS: MYCOPHENOLATE MOFETIL 250 MG CAP PO SCH ×2 (08:17→21:33)
[2018-05-19] MEDS: CARVEDILOL 25 MG TAB PO SCH ×2 (08:17→18:44)
[2018-05-19] MEDS: APIXABAN 2.5 MG TAB PO SCH ×2 (08:17→21:34)
[2018-05-19] MEDS: CYCLOSPORINE MODIFIED 25 MG PO SCH ×2 (08:18→21:34)
[2018-05-19] MEDS: FAMOTIDINE 20 MG TAB PO SCH (08:19)
[2018-05-19] MEDS: DOCUSATE SODIUM 100 MG CAP PO SCH (08:19)
[2018-05-19] MEDS: PRESERVISION AREDS2 FORMULA EYE VIT 1 EACH PO SCH ×2 (08:19→21:36)
[2018-05-19] MEDS: predniSONE 5 MG TAB PO SCH (08:19)
--- NOTE | 2018-05-19 08:19 | SOAPPROG ---
SANDRA Progress Note Assessment/Plan: Assessment:Plan: 05/17/18 10:39 as above 1) Ileus - i think her sx's now are from her ileus noted on AXR today, I 2) pancreatitis - I think this is resolved 3) lytes - check Mag, Phos -- potassium is fine will follow 05/19/18 08:16 1) abdo pain - pt awoke at approx 3 am with recurrent pain 2) lytes - phos still low I will discuss with radiology about re-image. iven her one kidney and pacemaker I will see what radiology recommends 05/19/18 09:56 discussed with radiology - non IV contrast CT scan Subjective: CC- abdo pain, ileus pt disappointed at return of pain sitting up getting ready to eat breakfast no f/c/s no n/v Objective: Vital Signs Temp Pulse Resp BP Pulse Ox 36.5 C 73 16 158/93 H 93 05/19/18 07:29 05/19/18 07:29 05/19/18 07:29 05/19/18 07:29 05/19/18 07:29 Laboratory Results 05/19/18 05:03 05/19/18 05:03 05/18/18 05/19/18 05/20/18 05:59 05:59 05:59 Intake Total 1200 Balance 1200 A+OX3 CTA S1S2 +BS, soft both epi and RUQ tenderness no r/g Laboratory Tests 05/19/18 05:03 AST 14 ALT 22 Alkaline Phosphatase 50 ICD10 Worksheet Patient Problems: Problems Problem Status Onset Pancreatitis, acute Acute Status post endoscopy Acute Acute blood loss anemia Acute CAD (coronary artery disease), [place] coronary artery Acute Incarcerated right inguinal hernia Acute S/P mitral valve repair Acute S/P tricuspid valve repair Acute Strangulated inguinal hernia Acute Thrombocytopenia Acute Valvular cardiomyopathy Acute CKD (chronic kidney disease) Chronic Chronic anticoagulation Chronic Chronic atrial fibrillation Chronic Immunosuppression Chronic
[2018-05-19] MEDS: oxyCODONE IR 5 MG TAB PO PRN (08:23)
[2018-05-19] MEDS ORDERED: K PHOS 10 MMOL in D5W 250 ML IV ONE (09:00)
[2018-05-19] MEDS: POLYETHYLENE GLYCOL 3350 17 GM PKT PO SCH (09:05)
[2018-05-19] MEDS: MAGNESIUM HYDROXIDE 30 ML UDCUP PO SCH ×2 (09:46→15:32)
[2018-05-19] MEDS: Lifitegrast [Xiidra] 1 DROP EACHEYE SCH ×2 (10:02→21:33)
--- NOTE | 2018-05-19 14:29 | ASMTCMCOM ---
CM Note CM Note Notes: Reviewed chart, pt ileus still resolving. Plan remains the same, pt will dc home independent w/support of when medically stable. CM available for any changes. DC Plan: Independent Date Signed: 05/19/2018 02:28 PM Electronically Signed By:Bee Nino RN
[2018-05-19] MEDS ORDERED: BISACODYL 10 MG SUPP PR SCH (15:00)
[2018-05-19] MEDS ORDERED: MAGNESIUM HYDROXIDE 30 ML UDCUP PO PRN (20:35)
--- NOTE | 2018-05-19 20:36 | HOSPPROG ---
Hospitalist Progress Note Assessment/Plan: Pancreatitis - post-ERCP 05/12 (performed due to abnormal imaging) -cbc and abd xray c/w ileus -pain control, encourage ambulation -more aggressive bowel protocol as no BM since admission and suspect source of pain currently -advance diet as tolerated -Discussed care plan with Dr Basurto S/P right inguinal hernia repair with necrotic appendix - 6 weeks post-op -Prior CT's reviewed (non-contrast) showed RLQ fluid collection and abnormal GB, ERCP relatively unremarkable, some sludge removed from biliary tree. -appreciate surgery eval -could do repeat CT, but will hold off for now and try more aggressive bowel protocol CKD s/p renal transplant - cont Prednisone, Cellcept Paroxysmal A fib with hx v tach - rate controlled on Coreg, takes Eliquis. Cardiomyopathy- cont coreg Severe Protein Calorie Malnutrition-has lost weight over last several months with surgery/post op recovery -appreciate nutrition/logistics supply officer recommendations -suggest outpt logistics supply officer FU Full code NO LOCAL PCP- OK to FU with me in office if desired Dispo- possible dc in AM if has BM/improves pain Objective: Vital Signs Temp Pulse Resp BP Pulse Ox 97.5 F 70 16 116/74 96 05/19/18 15:17 05/19/18 15:17 05/19/18 15:17 05/19/18 15:17 05/19/18 15:17 Laboratory Results 05/19/18 05:03 05/19/18 05:03 05/18/18 05/19/18 05/20/18 11:59 11:59 11:59 Intake Total 1200 Balance 1200 - Time Spent With Patient Time Spent with Patient: greater than 35 minutes (Had recurrent pain overnt, seems better currently. no BM yet, no n/v. No CP/SOB) Time Spent with Patient: Greater than 35 minutes spent on this patients care, greater than 50% of time spent counseling, educating, and coordinating care regarding the above mentioned plan. - Physical Exam Constitutional: no apparent distress, other (thin) Eyes: anicteric sclera Ears, Nose, Mouth, Throat: moist mucous membranes Cardiovascular: regular rate and rhythym Respiratory: no respiratory distress, no rales or rhonchi, clear to auscultation Gastrointestinal: normoactive bowel sounds, tenderness (mild throughout) Skin: warm Psychiatric: interacting appropriately, not anxious, not encephalopathic ICD10 Worksheet Patient Problems: Problems Problem Status Onset Acute blood loss anemia Acute CAD (coronary artery disease), [place] coronary artery Acute Incarcerated right inguinal hernia Acute Pancreatitis, acute Acute S/P mitral valve repair Acute S/P tricuspid valve repair Acute Status post endoscopy Acute Strangulated inguinal hernia Acute Thrombocytopenia Acute Valvular cardiomyopathy Acute CKD (chronic kidney disease) Chronic Chronic anticoagulation Chronic Chronic atrial fibrillation Chronic Immunosuppression Chronic
[2018-05-20] MEDS: ACETAMINOPHEN 325 MG TAB PO SCH ×3 (02:02→10:13)
[2018-05-20 07:20] VITALS: BP 119/77
[2018-05-20] MEDS: POLYETHYLENE GLYCOL 3350 17 GM PKT PO SCH (07:58)
[2018-05-20] MEDS: predniSONE 5 MG TAB PO SCH (07:59)
[2018-05-20] MEDS: FAMOTIDINE 20 MG TAB PO SCH (07:59)
[2018-05-20] MEDS: CYCLOSPORINE MODIFIED 25 MG PO SCH (07:59)
[2018-05-20] MEDS: PRESERVISION AREDS2 FORMULA EYE VIT 1 EACH PO SCH (08:00)
[2018-05-20] MEDS: CARVEDILOL 25 MG TAB PO SCH (08:00)
[2018-05-20] MEDS: APIXABAN 2.5 MG TAB PO SCH (08:00)
[2018-05-20] MEDS: MYCOPHENOLATE MOFETIL 250 MG CAP PO SCH (08:00)
[2018-05-20] MEDS: Lifitegrast [Xiidra] 1 DROP EACHEYE SCH (08:02)
[2018-05-20] MEDS: ONDANSETRON DISINTEGRATING 4 MG TAB PO PRN (09:34)
== END 2018-05-20 12:04 | disposition home or self-care (01) | DRG 438 ==
LOC: INTOOBSV 09:42 → F3E 11:52 → OBSVTOIN 05-14 11:44
PROVIDERS: ADMIT Internal Medicine; ATTEND Internal Medicine
DX: K85.90 Acute pancreatitis without necrosis or infection, unspecified (principal); K56.7 Ileus, unspecified; E43 Unspecified severe protein-calorie malnutrition; M32.9 Systemic lupus erythematosus, unspecified; Z94.0 Kidney transplant status; N18.9 Chronic kidney disease, unspecified; I25.10 Atherosclerotic heart disease of native coronary artery without angina pectoris; I48.0 Paroxysmal atrial fibrillation; I50.9 Heart failure, unspecified; Z79.01 Long term (current) use of anticoagulants; Z95.0 Presence of cardiac pacemaker
CPT/HCPCS: 82435-PO; 82565-PO; 82947-PO; 84132-PO; 84295-PO; 84520-PO; 85014-ER; 96374; G0378; J1170; J1956; J2405; J2704; J3010; J7512; Q9961